=== PATIENT | female | born 1970 | race Caucasian/White ===

== ENCOUNTER 2021-04-02 07:16 | Outpatient (REF) | payer OTHER, SELFPAY ==
--- NOTE | ~2021-04-02 | MM_ITS ---
EXAMINATION: MM SCREENING DIGITAL BREAST TOMOSYNTHESIS, BILATERAL CLINICAL INFORMATION: Screening. Asymptomatic. The lifetime risk of breast cancer based on the Tyrer-Cuzick Model is 6%. COMPARISON: Mammography: 01/24/2020, 01/18/2019, 01/12/2018 TECHNIQUE: Digital mammography is performed in craniocaudal and mediolateral oblique views along with computer-aided detection (CAD). Digital breast tomosynthesis is performed in implant-displaced craniocaudal and implant-displaced mediolateral oblique views along with computer-aided detection (CAD). Synthesized 2D images are generated from the tomosynthesis. FINDINGS: There are scattered areas of fibroglandular density (ACR BI-RADS breast composition Category b). There are no significant masses, abnormal calcifications, or other abnormalities. Parenchymal pattern is similar to prior exams. No developing density. The implant contours are similar to prior studies. The axilla are unremarkable. No significant changes. MM/MM tomosynthesis screen imp BI IMPRESSION: No mammographic evidence of malignancy. ASSESSMENT: BI-RADS 1: Negative RECOMMENDATION: Routine annual mammography screening. This patient's information was entered into a reminder system with a target due date for their next mammogram.
== END 2021-04-02 07:17 | disposition home or self-care (01) ==
LOC: HO.MAMMO 07:16
PROVIDERS: PCP Internal Medicine; Visit Provider Internal Medicine
DX: Z12.31 Encounter for screening mammogram for malignant neoplasm of breast (principal)
CPT/HCPCS: 77063; 77067

== ENCOUNTER 2021-06-20 10:25 | Outpatient (REF) | payer OTHER, SELFPAY ==
[2021-06-20 13:32] LABS: MANUAL DIFF FLAG NO
[2021-06-20 13:36] LABS: Basophils Percent Auto 0.5 % (0-2); Eosinophils Absolute Auto 0.1 X10*3/uL (0.0-0.4); Eosinophils Percent Auto 1.7 % (0-4); Hematocrit 41.5 % (37-47); Hemoglobin 13.6 g/dl (12.0-16.0); Imm Gran Abs Auto 0.02 X10*3/uL (0.00-0.03); Imm Gran Pct Auto 0.3 % (0.0-0.4); Lymphocytes Percent Auto 34.4 % (20-40); Mean Corpuscular HGB Conc 32.8 g/dl (31.0-35.0); Mean Corpuscular Hemoglobin 30.2 pg (27.0-33.0); Mean Platelet Volume 9.7 fL (9.4-12.3); Monocytes Absolute Auto 0.5 X10*3/uL (0.1-1.2); Monocytes Percent Auto 8.3 % (2-11); Neutrophils Absolute Auto 3.2 X10*3/uL (2.0-8.3); Neutrophils Percent Auto 54.8 % (45-73); Platelet Count 266 X10*3/uL (160-400); Red Blood Count 4.51 X10*6/uL (4.20-5.50); Red Cell Distribution Width 11.9 % (11.0-16.0); White Blood Count 5.8 X10*3/uL (4.8-10.8)
[2021-06-20 13:58] LABS: Alanine Aminotransferase 28 U/L (0-31); Albumin Level 4.3 g/dL (3.5-5.0); Alkaline Phosphatase 70 U/L (39-117); Anion Gap 12 (12-20); Aspartate Amino Transferase 22 U/L (5-31); Bilirubin Total 0.6 mg/dL (0.0-1.0); Blood Urea Nitrogen 13 mg/dL (9-16); Calcium 9.3 mg/dL (8.4-10.2); Carbon Dioxide 27 mmol/L (22-29); Chloride 103 mmol/L (96-108); Cholesterol 256 mg/dL; Estimated Glomerular Filt Rate > 60; Glucose Fasting 100 mg/dL (60-99); HDL Cholesterol 73 mg/dL; LDL Cholesterol Calculated 149 mg/dl; Potassium 4.1 mmol/L (3.3-5.1); Sodium 138 mmol/L (135-145); Total Protein 7.2 g/dL (6.5-8.0); Triglycerides 170 mg/dL
[2021-06-20 14:20] LABS: Thyroid Stimulating Hormone 0.84 uIU/mL (0.32-4.0); Vitamin D 25-OH Total 38.6 ng/mL (>30)
== END 2021-06-20 10:26 | disposition home or self-care (01) ==
LOC: HO.MANLDS 10:25
PROVIDERS: PCP Internal Medicine; Visit Provider Internal Medicine
DX: Z00.00 Encounter for general adult medical examination without abnormal findings (principal)
CPT/HCPCS: 36415; 80053; 80061; 82306; 84443; 85025

== ENCOUNTER 2022-04-04 07:17 | Outpatient (REF) | payer OTHER, SELFPAY ==
--- NOTE | ~2022-04-04 | MM_ITS ---
EXAMINATION: MM SCREENING DIGITAL BREAST TOMOSYNTHESIS, BILATERAL CLINICAL INFORMATION: Screening. Asymptomatic. The lifetime risk of breast cancer based on the Tyrer-Cuzick Model is 6%. COMPARISON: Mammography: 04/02/2021, 01/24/2020, 01/18/2019 TECHNIQUE: Digital mammography is performed in craniocaudal and mediolateral oblique views along with computer-aided detection (CAD). Digital breast tomosynthesis is performed in implant-displaced craniocaudal and implant-displaced mediolateral oblique views along with computer-aided detection (CAD). Synthesized 2D images are generated from the tomosynthesis. FINDINGS: There are scattered areas of fibroglandular density (ACR BI-RADS breast composition Category b). There are no significant masses, abnormal calcifications, or other abnormalities. Parenchymal pattern is similar to prior exams and there is no architectural abnormality or developing density or significant changes. The implant contours are smooth. MM/MM tomosynthesis screen imp BI IMPRESSION: No mammographic evidence of malignancy. ASSESSMENT: BI-RADS 1: Negative RECOMMENDATION: Routine annual mammography screening. This patient's information was entered into a reminder system with a target due date for their next mammogram.
== END 2022-04-04 07:18 | disposition home or self-care (01) ==
LOC: HO.MAMMO 07:17
PROVIDERS: PCP Internal Medicine; Visit Provider Internal Medicine
DX: Z12.31 Encounter for screening mammogram for malignant neoplasm of breast (principal)
CPT/HCPCS: 77063; 77067

== ENCOUNTER 2023-04-07 07:17 | Outpatient (REF) | payer OTHER, SELFPAY ==
--- NOTE | ~2023-04-07 | MM_ITS ---
EXAMINATION: MM SCREENING DIGITAL BREAST TOMOSYNTHESIS, BILATERAL CLINICAL INFORMATION: Screening. Asymptomatic. The lifetime risk of breast cancer based on the Tyrer-Cuzick Model is 6%. COMPARISON: Mammography: 04/04/2022, 04/02/2021, 01/24/2020 TECHNIQUE: Digital mammography is performed in craniocaudal and mediolateral oblique views along with computer-aided detection (CAD). Digital breast tomosynthesis is performed in implant-displaced craniocaudal and implant-displaced mediolateral oblique views along with computer-aided detection (CAD). Synthesized 2D images are generated from the tomosynthesis. FINDINGS: There are scattered areas of fibroglandular density (ACR BI-RADS breast composition Category b). Implant contours are smooth and similar to prior studies. No architectural abnormality or developing density or significant change from prior studies. There are no significant masses, abnormal calcifications, or other abnormalities. The axilla and skin contours are unremarkable. MM/MM tomosynthesis screen imp BI IMPRESSION: No mammographic evidence of malignancy. ASSESSMENT: BI-RADS 1: Negative RECOMMENDATION: Routine annual mammography screening. This patient's information was entered into a reminder system with a target due date for their next mammogram.
== END 2023-04-07 07:18 | disposition home or self-care (01) ==
LOC: HO.MAMMO 07:17
PROVIDERS: PCP Internal Medicine; Visit Provider Internal Medicine
DX: Z12.31 Encounter for screening mammogram for malignant neoplasm of breast (principal)
CPT/HCPCS: 77063; 77067

== ENCOUNTER 2023-04-21 07:14 | Outpatient (REF) | payer OTHER, SELFPAY ==
[2023-04-21 07:33] LABS: MANUAL DIFF FLAG NO
[2023-04-21 08:11] LABS: Basophils Absolute Auto 0.1 X10*3/uL (0.0-0.2); Basophils Percent Auto 0.9 % (0-2); Eosinophils Absolute Auto 0.1 X10*3/uL (0.0-0.4); Eosinophils Percent Auto 2.6 % (0-4); Hematocrit 40.3 % (37.0-47.0); Hemoglobin 13.3 g/dl (12.0-16.0); Imm Gran Abs Auto 0.02 X10*3/uL (0.00-0.03); Imm Gran Pct Auto 0.4 % (0.0-0.4); Lymphocytes Percent Auto 37.5 % (20-40); Mean Corpuscular Hemoglobin 29.1 pg (27.0-33.0); Mean Corpuscular Volume 88.2 fL (80.0-98.0); Mean Platelet Volume 9.1 fL (9.4-12.3); Monocytes Absolute Auto 0.4 X10*3/uL (0.1-1.2); Monocytes Percent Auto 7.8 % (2-11); Neutrophils Absolute Auto 2.7 x10*3/uL (2.0-8.3); Neutrophils Percent Auto 50.8 % (45-73); Platelet Count 282 X10*3/uL (160-400); Red Blood Count 4.57 X10*6/uL (4.20-5.50); Red Cell Distribution Width 11.7 % (11.0-16.0); White Blood Count 5.4 X10*3/uL (4.8-10.8)
[2023-04-21 08:38] LABS: Alanine Aminotransferase 29 U/L (0-31); Alkaline Phosphatase 75 U/L (39-117); Anion Gap 12 (12-20); Aspartate Amino Transferase 20 U/L (5-31); Bilirubin Total 0.9 mg/dL (0.0-1.0); Blood Urea Nitrogen 17 mg/dL (9-16); Calcium 9.2 mg/dL (8.4-10.2); Carbon Dioxide 26 mmol/L (22-29); Chloride 108 mmol/L (96-108); Cholesterol 254 mg/dL; Estimated Glomerular Filt Rate > 60; Glucose Random 100 mg/dL (60-115); HDL Cholesterol 57 mg/dL; LDL Cholesterol Calculated 170 mg/dl; Potassium 4.3 mmol/L (3.3-5.1); Sodium 142 mmol/L (135-145); Total Protein 6.7 g/dL (6.5-8.0); Triglycerides 139 mg/dL
[2023-04-21 08:59] LABS: Thyroid Stimulating Hormone 1.29 uIU/mL (0.32-4.0); Vitamin B12 343 pg/mL (200-900); Vitamin D 25-OH Total 34.3 ng/mL (>30)
== END 2023-04-21 07:15 | disposition home or self-care (01) ==
LOC: HO.LAB 07:14
PROVIDERS: PCP Internal Medicine; Visit Provider Internal Medicine
DX: Z00.00 Encounter for general adult medical examination without abnormal findings (principal); E78.00 Pure hypercholesterolemia, unspecified; E03.9 Hypothyroidism, unspecified; Z13.21 Encounter for screening for nutritional disorder
CPT/HCPCS: 36415; 80053; 80061; 82306; 82607; 84443; 85025

== ENCOUNTER 2023-11-09 07:24 | Outpatient (REF) | payer OTHER, SELFPAY ==
[2023-11-09 07:50] LABS: MANUAL DIFF FLAG NO
[2023-11-09 08:50] LABS: Basophils Percent Auto 0.8 % (0-2); Eosinophils Absolute Auto 0.1 X10*3/uL (0.0-0.4); Eosinophils Percent Auto 2.2 % (0-4); Hematocrit 42.2 % (37.0-47.0); Hemoglobin 13.8 g/dl (12.0-16.0); Imm Gran Abs Auto 0.01 X10*3/uL (0.00-0.03); Imm Gran Pct Auto 0.2 % (0.0-0.4); Lymphocytes Absolute Auto 1.5 X10*3/uL (1.2-4.9); Lymphocytes Percent Auto 29.8 % (20-40); Mean Corpuscular HGB Conc 32.7 g/dl (31.0-35.0); Mean Corpuscular Hemoglobin 29.8 pg (27.0-33.0); Mean Corpuscular Volume 91.1 fL (80.0-98.0); Mean Platelet Volume 9.5 fL (9.4-12.3); Monocytes Absolute Auto 0.5 X10*3/uL (0.1-1.2); Monocytes Percent Auto 8.9 % (2-11); Neutrophils Percent Auto 58.1 % (45-73); Platelet Count 270 X10*3/uL (160-400); Red Blood Count 4.63 X10*6/uL (4.20-5.50); Red Cell Distribution Width 11.9 % (11.0-16.0); White Blood Count 5.1 X10*3/uL (4.8-10.8)
[2023-11-09 09:36] LABS: Alanine Aminotransferase 36 U/L (0-31); Albumin Level 4.1 g/dL (3.5-5.0); Alkaline Phosphatase 74 U/L (39-117); Anion Gap 11 (12-20); Aspartate Amino Transferase 26 U/L (5-31); Bilirubin Total 0.6 mg/dL (0.0-1.0); Blood Urea Nitrogen 13 mg/dL (9-16); Calcium 9.2 mg/dL (8.4-10.2); Carbon Dioxide 28 mmol/L (22-29); Chloride 108 mmol/L (96-108); Estimated Glomerular Filt Rate > 60; Glucose Random 95 mg/dL (60-115); Potassium 3.8 mmol/L (3.3-5.1); Sodium 143 mmol/L (135-145); Total Protein 6.9 g/dL (6.5-8.0)
[2023-11-09 10:05] LABS: Ferritin 159 ng/mL (10-250); Vitamin D 25-OH Total 37.6 ng/mL (>30)
== END 2023-11-09 07:25 | disposition home or self-care (01) ==
LOC: HO.LAB 07:24
PROVIDERS: PCP Internal Medicine; Visit Provider Internal Medicine
DX: K76.9 Liver disease, unspecified (principal); K90.0 Celiac disease
CPT/HCPCS: 36415; 80053; 82306; 82607; 82728; 85025

== ENCOUNTER 2024-04-18 07:13 | Outpatient (REF) | payer OTHER, SELFPAY ==
--- NOTE | ~2024-04-18 | MM_ITS ---
EXAMINATION: MM SCREENING DIGITAL BREAST TOMOSYNTHESIS, BILATERAL WITH BILATERAL BREAST IMPLANTS CLINICAL INFORMATION: Screening. Asymptomatic. COMPARISON: Mammography: This study is compared with prior examinations dating back to 2019. TECHNIQUE: Digital mammography is performed in craniocaudal and mediolateral oblique views along with computer-aided detection (CAD). Digital breast tomosynthesis is performed in implant-displaced craniocaudal and implant-displaced mediolateral oblique views along with computer-aided detection (CAD). Synthesized 2D images are generated from the tomosynthesis. FINDINGS: There are scattered areas of fibroglandular density (ACR BI-RADS breast composition Category b). There are bilateral, retropectoral, mammographically intact saline breast implants. There are no significant masses, abnormal calcifications, or other abnormalities. MM/MM tomosynthesis screen imp BI IMPRESSION: There are no significant changes from prior study. ASSESSMENT: BI-RADS BI-RADS 1 - Negative RECOMMENDATION: Routine annual mammography screening. 1 year F/U This patient's information was entered into a reminder system with a target due date for their next mammogram.
== END 2024-04-18 07:14 | disposition home or self-care (01) ==
LOC: HO.MAMMO 07:13
PROVIDERS: PCP Internal Medicine; Visit Provider Internal Medicine
DX: Z12.31 Encounter for screening mammogram for malignant neoplasm of breast (principal)
CPT/HCPCS: 77063; 77067

== ENCOUNTER → 2024-04-18 07:30 | Outpatient (BNV) | payer OTHER, SELFPAY | PROVIDERS: PCP Internal Medicine; Visit Provider Radiology Diagnostic Radiology | DX: Z12.31 Encounter for screening mammogram for malignant neoplasm of breast (principal) | CPT/HCPCS: 77063; 77067 ==

== ENCOUNTER 2024-06-17 15:18 | Outpatient (REF) | payer BC, SELFPAY ==
[2024-06-17 17:53] LABS: MANUAL DIFF FLAG NO
[2024-06-17 17:58] LABS: Basophils Percent Auto 0.5 % (0-2); Eosinophils Absolute Auto 0.1 X10*3/uL (0.0-0.4); Eosinophils Percent Auto 1.8 % (0-4); Hemoglobin 12.9 g/dl (12.0-16.0); Imm Gran Abs Auto 0.01 X10*3/uL (0.00-0.03); Imm Gran Pct Auto 0.3 % (0.0-0.4); Lymphocytes Absolute Auto 1.6 X10*3/uL (1.2-4.9); Lymphocytes Percent Auto 40.3 % (20-40); Mean Corpuscular HGB Conc 33.1 g/dl (31.0-35.0); Mean Corpuscular Hemoglobin 29.7 pg (27.0-33.0); Mean Corpuscular Volume 89.9 fL (80.0-98.0); Mean Platelet Volume 9.8 fL (9.4-12.3); Monocytes Absolute Auto 0.7 X10*3/uL (0.1-1.2); Monocytes Percent Auto 17.2 % (2-11); Neutrophils Absolute Auto 1.6 x10*3/uL (2.0-8.3); Neutrophils Percent Auto 39.9 % (45-73); Platelet Count 253 X10*3/uL (160-400); Red Blood Count 4.34 X10*6/uL (4.20-5.50); Red Cell Distribution Width 11.4 % (11.0-16.0)
[2024-06-17 18:15] LABS: Rheumatoid Factor < 13.0 IU/mL (<15.0)
[2024-06-17 18:20] LABS: Alanine Aminotransferase 35 U/L (0-31); Albumin Level 3.8 g/dL (3.5-5.0); Alkaline Phosphatase 84 U/L (39-117); Anion Gap 13 (12-20); Aspartate Amino Transferase 24 U/L (5-31); Bilirubin Total 0.4 mg/dL (0.0-1.0); Blood Urea Nitrogen 16 mg/dL (9-16); C Reactive Protein < 0.10 mg/dL (< or = 0.50); Calcium 9.2 mg/dL (8.4-10.2); Carbon Dioxide 26 mmol/L (22-29); Chloride 105 mmol/L (96-108); Estimated Glomerular Filt Rate > 60; Glucose Random 139 mg/dL (60-115); Iron 41 mcg/dL (30-160); Percent Iron Saturation 18 % (15-50); Phosphorus 3.8 mg/dL (2.7-4.5); Sodium 140 mmol/L (135-145); Total Iron Binding Capacity 227 mcg/dL (228-428); Total Protein 6.7 g/dL (6.5-8.0); Unsaturated Iron Binding 186 ug/dL
[2024-06-17 18:38] LABS: Erythrocyte Sedimentation Rate 6 MM/HR (0-20)
[2024-06-17 18:41] LABS: Ferritin 391 ng/mL (10-250); Free T4 (Free Thyroxine) 2.59 ng/dL (0.71-1.85); Vitamin D 25-OH Total 60.7 ng/mL (>30)
[2024-06-17 18:44] LABS: Folate 13.2 ng/mL (> or = 4.0); Vitamin B12 408 pg/mL (200-900)
[2024-06-17 19:13] LABS: Thyroid Stimulating Hormone < 0.01 uIU/mL (0.32-4.0)
[2024-06-18 05:21] LABS: Estimated Average Glucose 105 mg/dL; Hemoglobin A1c % 5.3 % (<6.0)
[2024-06-18 05:30] LABS: Parathyroid Hormone Intact 84.5 pg/mL (8.7-77.1)
[2024-06-19 12:53] LABS: Lyme Abs Screen <0.90 index
[2024-06-19 13:09] LABS: Triiodothyronine T3 Free >20.0 pg/mL (2.3-4.2)
[2024-06-22 07:59] LABS: Anti Nuclear Antibody Screen NEGATIVE (NEGATIVE)
[2024-06-25 02:43] LABS: A. Phagocytophilum Ab IgG <1:64 (<1:64); A. Phagocytophilum Ab IgM <1:20 (<1:20); E. Chaffeensis Ab IgG <1:64 (<1:64); E. Chaffeensis Ab IgM <1:20 (<1:20)
== END 2024-06-17 15:19 | disposition home or self-care (01) ==
LOC: HO.MANLDS 15:18
PROVIDERS: Visit Provider Physician Assistant
DX: R20.8 Other disturbances of skin sensation (principal); M79.10 Myalgia, unspecified site; R42 Dizziness and giddiness; Z13.1 Encounter for screening for diabetes mellitus
CPT/HCPCS: 36415; 80053; 82306; 82550; 82607; 82728; 82746; 83036; 83540; 83735; 83970; 84100; 84439; 84443; 84481; 85025; 85652; 86038; 86140; 86431; 86617; 86618; 86666

== ENCOUNTER 2024-06-19 22:31 | Emergency (ER) | payer BC, SELFPAY ==
--- NOTE | 2024-06-19 | ECG_ITS ---
Test Reason : palpatation Blood Pressure : / mmHG Vent. Rate : 084 BPM Atrial Rate : 084 BPM P-R Int : 150 ms QRS Dur : 074 ms QT Int : 360 ms P-R-T Axes : 020 036 033 degrees QTc Int : 425 ms Normal sinus rhythm Normal ECG When compared with ECG of 14-DEC-2009 14:01, No significant change was found Referred By: Generic ED Physician Electronically Signed By:Remy Flores
--- NOTE | ~2024-06-19 | CT_ITS ---
EXAMINATION: CT ANGIOGRAM OF THE CHEST WITH AND WITHOUT CONTRAST (CT PULMONARY ANGIOGRAM FOR PE) CLINICAL INFORMATION: Reason for Exam chest pain COMPARISON: None available. TECHNIQUE: Prior to contrast administration, noncontrast localization images were obtained. Subsequently, multidetector volumetric imaging was performed from the thoracic inlet to below the diaphragms following the administration of 65 mL Omnipaque 350 intravenous contrast. No contrast reaction reported Sagittal, coronal, and MIP oblique sagittal reformatted images were obtained on the CT workstation, uploaded to PACS, and reviewed. This CT examination was performed using dose optimization techniques as appropriate, variously including the following: *Automated exposure control *Adjustment of mA and/or kV according to patient size (this includes techniques or standardized protocols for targeted exams where dose is matched to indication/reason for exam; i.e. extremities or head) *Use of iterative reconstruction technique Total exam dose-length product 238 mGy-cm FINDINGS: QUALITY OF STUDY/CONTRAST BOLUS: Satisfactory. PULMONARY ARTERIES: No filling defects are seen in the main, lobar, or segmental pulmonary arteries to suggest the presence of pulmonary emboli. THORACIC AORTA: No aneurysm or dissection. LUNG: Mild dependent bibasilar atelectasis. A 4 mm left upper lobe nodule is present on image 188/420. There is a 3 mm right middle lobe nodule on image 239. PLEURA: No pleural effusion or pneumothorax. MEDIASTINUM: Visualized thyroid gland is unremarkable. There are subcentimeter mediastinal lymph nodes within the range of normal variation. Cardiac size appears at the upper limits of normal. No pericardial effusion. No evidence of septal bowing or right heart strain. CORONARY ARTERY CALCIFICATION: None visualized on this study. CHEST WALL/AXILLA: Bilateral breast implants are present. OSSEOUS STRUCTURES: No acute or suspicious osseous abnormality. UPPER ABDOMEN: Mild heterogeneous hypoattenuation within the right hepatic lobe suggesting nonuniform fatty infiltration, though not fully characterized on this exam. CT/CT angio chest PE protocol IMPRESSION: 1. No pulmonary embolus identified. 2. Left upper lobe 4 mm lung nodule and right middle lobe 3 mm nodule. See follow-up recommendations below. 3. Heterogeneous hypoattenuation within the right hepatic lobe, not fully assessed on this examination. This could represent heterogeneous fatty infiltration, though further evaluation with nonemergent dynamic liver MRI is recommended. According to the UPDATED 2017 Fleischner Society recommendations, the advised follow-up imaging for solid nodules < 6 mm is: LOW RISK PATIENT: No routine follow-up. HIGH RISK PATIENT: Optional CT at 12 months. VTE: negative.
[2024-06-19 22:33] VITALS: BP 131/79; PULSE 86; RESP 18; TEMP 36.4; O2SAT 96; BMI 24.6
[2024-06-19 23:05] LABS: Basophils Percent Auto 0.4 % (0-2); Eosinophils Absolute Auto 0.1 X10*3/uL (0.0-0.4); Eosinophils Percent Auto 1.8 % (0-4); Hematocrit 35.9 % (37.0-47.0); Imm Gran Abs Auto 0.01 X10*3/uL (0.00-0.03); Imm Gran Pct Auto 0.2 % (0.0-0.4); Lymphocytes Percent Auto 41.6 % (20-40); MANUAL DIFF FLAG NO; Mean Corpuscular HGB Conc 33.4 g/dl (31.0-35.0); Mean Corpuscular Hemoglobin 29.5 pg (27.0-33.0); Mean Corpuscular Volume 88.2 fL (80.0-98.0); Mean Platelet Volume 9.1 fL (9.4-12.3); Monocytes Absolute Auto 0.8 X10*3/uL (0.1-1.2); Monocytes Percent Auto 15.8 % (2-11); Neutrophils Percent Auto 40.2 % (45-73); Platelet Count 226 X10*3/uL (160-400); Red Blood Count 4.07 X10*6/uL (4.20-5.50); Red Cell Distribution Width 11.4 % (11.0-16.0); White Blood Count 4.9 X10*3/uL (4.8-10.8)
[2024-06-19 23:19] LABS: Alanine Aminotransferase 34 U/L (0-31); Albumin Level 3.7 g/dL (3.5-5.0); Alkaline Phosphatase 91 U/L (39-117); Anion Gap 12 (12-20); Aspartate Amino Transferase 21 U/L (5-31); Bilirubin Total 0.3 mg/dL (0.0-1.0); Blood Urea Nitrogen 22 mg/dL (9-16); Calcium 9.2 mg/dL (8.4-10.2); Carbon Dioxide 27 mmol/L (22-29); Chloride 108 mmol/L (96-108); Creatinine Clr Calc Pharmacy 93.5; Estimated Glomerular Filt Rate > 60; Glucose Random 119 mg/dL (60-115); Potassium 3.8 mmol/L (3.3-5.1); Sodium 143 mmol/L (135-145); Total Protein 6.3 g/dL (6.5-8.0)
[2024-06-19 23:27] LABS: Troponin-I High Sensitivity < 2.7 ng/L (<3.5-17.0)
[2024-06-19 23:49] LABS: Magnesium 1.9 mg/dL (1.6-2.6)
--- NOTE | 2024-06-19 23:59 | ED.GENADULT ---
HPI - General Adult General Chief complaint: General Medical Stated complaint: hypothyroidism/heart beating fast Time Seen by Provider: 06/19/24 23:26 Source: patient, RN notes reviewed and old records reviewed Mode of arrival: ambulatory Limitations: no limitations History of Present Illness ED Provider: Rudi RAMOS narrative: 54-year-old female presents for evaluation of palpitations. Patient reports that she has had ongoing symptoms for a few months have been getting progressively worse. She went to her doctor on 06/17/2024. She had blood work that was indicative of a diagnosis of hyperthyroidism. She was prescribed propranolol for tremors and tachycardia. She is due for an ultrasound of her thyroid on Sunday She is not on methimazole The patient states that she has never had a diagnosis of hyperthyroidism in the past She reports intolerance of heat, palpitations, tremors and increased anxiety as well as perspiration Patient states that her symptoms were worse prior to arrival prompting the ER visit today. She took her propranolol today for the 1st time and her tremors have resolved but she is still experiencing hot flashes Related Data Previous Rx's ?Medication ?Instructions ?Recorded methimazole 5 mg tablet 5 mg PO DAILY #30 tabs 06/20/24 Allergies Allergy/AdvReac Type Severity Reaction Status Date / Time wheat [WHEAT] AdvReac Intermediate GI UPSET Verified 06/19/24 22:39 Review of Systems Constitutional: Constitutional: Denies body ache(s), Denies chills, Reports excessive sweating and Denies fever(s) Eyes: Eyes: Denies blurry vision Cardiovascular: Cardiovascular: Reports chest pain, Reports rapid heart rate, Reports palpitations and Reports dyspnea Respiratory: Respiratory: Reports dyspnea Gastrointestinal: Gastrointestinal: Denies abdominal pain, Denies nausea and Denies vomiting Musculoskeletal: Musculoskeletal: Denies back pain Integumentary/Breasts: Skin/Breast: Denies rash Psychiatric: Psychiatric: Reports anxiety Endocrine: Endocrine: Reports excessive sweating, Reports flushing, Reports heat intolerance and Reports palpitations PMFSH Social History Social History Advance Directives: No Advance Directives Information Provided: Yes Do you have a plan to hurt others: No Plan Physical Exam ED Vital Signs: Vital Signs - 24 hr 06/19/24 22:33 06/20/24 00:00 Temperature 97.6 F 97.7 F Pulse Rate 86 77 Respiratory Rate 18 18 Blood Pressure 131/79 122/66 Pulse Oximetry 96 99 Oxygen Delivery Method Room Air Room Air BMI result Body Mass Index 24.6 Const General: healthy appearing, comfortable, no acute distress, alert and awake Nutritional Appearance: well nourished Orientation/consciousness: patient oriented x3 HENMT Head: Yes normocephalic and Yes atraumatic Eyes Eyelids: Yes eyelids normal Conjunctivae: conjunctivae normal Sclerae: sclerae normal Corneas: corneas normal Pupils: Equal, round and reactive pupils present EOM: EOMs intact bilaterally Neck Other: No palpable goiter Neck: Yes full ROM Resp Effort & Inspection: normal respiratory effort, able to speak in complete sentences, no audible wheezes and not labored Auscultation: clear to auscultation bilaterally Cardio Rate: regular rate Rhythm: regular rhythm GI Inspection: No distended Palpation (GI): Soft to palpation, not firm, nontender, no guarding and not rigid Skin General skin exam: elasticity normal Neuro General: patient oriented x3 Cranial nerves: Yes Equal, round and reactive pupils present and Yes Bilaterally intact EOM present Cognition (Neuro): normal cognition Extrem Other: Moving all extremities well without any obvious deformities Medical Decision Making Medical Decision Making [facility] Narrative: 54-year-old female presents for evaluation of palpitations, shortness of breath. She does endorse leg swelling over the last week. She has a recent diagnosis of hyperthyroidism and all her symptoms may be related to hyperthyroidism, however given the shortness of breath, tachycardia and leg swelling I added a D-dimer to evaluate for DVT/PE. I was able to review the patient's labs from a few days ago. Plan to repeat TSH and reflex T4. Patient's EKG is nonischemic with heart rate 84 beats minute. Differential Diagnosis Differential Diagnoses: The differential diagnosis associated with the presentation includes Hyperthyroidism Thyroid storm less likely Anxiety Palpitations PE Lab Data [facility] Lab Attestation statement: I reviewed the patient's lab results. No leukocytosis. The patient has no significant anemia. No significant left shift. D-dimer is elevated to 317, electrolytes are without abnormality. BUN is slightly elevated to 22. Renal function within normal limits, creatinine 0.6 year and a GFR greater than 60. Random glucose of 119 patient TSH is less than 0.01 06/19/24 22:58 06/19/24 22:58 Labs: Lab Results 06/19/24 06/20/24 Range/Units 22:58 00:01 WBC 4.9 (4.8-10.8) X10*3/uL RBC 4.07 L (4.20-5.50) X10*6/uL Hgb 12.0 (12.0-16.0) g/dl Hct 35.9 L (37.0-47.0) % MCV 88.2 (80.0-98.0) fL MCH 29.5 (27.0-33.0) pg MCHC 33.4 (31.0-35.0) g/dl RDW 11.4 (11.0-16.0) % Plt Count 226 (160-400) X10*3/uL MPV 9.1 L (9.4-12.3) fL Immature Gran % (Auto) 0.2 (0.0-0.4) % Neut % (Auto) 40.2 L (45-73) % Lymph % (Auto) 41.6 H (20-40) % Clinton % (Auto) 15.8 H (2-11) % Eos % (Auto) 1.8 (0-4) % Baso % (Auto) 0.4 (0-2) % Lymph # (Auto) 2.0 (1.2-4.9) X10*3/uL [place] # (Auto) 0.8 (0.1-1.2) X10*3/uL Eos # (Auto) 0.1 (0.0-0.4) X10*3/uL Baso # (Auto) 0.0 (0.0-0.2) X10*3/uL Abs Immat Gran (auto) 0.01 (0.00-0.03) X10*3/uL Absolute Neuts (auto) 2.0 (2.0-8.3) x10*3/uL Absolute Nucleated RBC 0.000 (0.0-0.012) X10*3/uL Nucleated RBC % (auto) 0.0 (0.0-0.2) /100WBC D-Dimer High Sensitivty 317 NG/ML Sodium 143 (135-145) mmol/L Potassium 3.8 (3.3-5.1) mmol/L Chloride 108 (96-108) mmol/L Carbon Dioxide 27 (22-29) mmol/L Anion Gap 12 (12-20) BUN 22 H (9-16) mg/dL Creatinine 0.60 (0.5-1.4) mg/dL Estim Creat Clear Calc 93.5 Estimated GFR > 60 Random Glucose 119 H (60-115) mg/dL Calcium 9.2 (8.4-10.2) mg/dL Magnesium 1.9 (1.6-2.6) mg/dL Total Bilirubin 0.3 (0.0-1.0) mg/dL AST 21 (5-31) U/L ALT 34 H (0-31) U/L Alkaline Phosphatase 91 (39-117) U/L Troponin I High Sens < 2.7 (<3.5-17.0) ng/L Total Protein 6.3 L (6.5-8.0) g/dL Albumin 3.7 (3.5-5.0) g/dL TSH < 0.01 L (0.32-4.0) uIU/mL Free T4 3.23 H (0.71-1.85) ng/dL Independent Interpretation I performed an independent interpretation of an: EKG (Normal sinus rhythm with a rate of [address] segment elevations or depressions, no ectopy) Discharge Plan Discharge Clinical Impression: Hyperthyroidism Patient Disposition: Still a Patient Instructions: Hyperthyroidism (ED) Additional Instructions: You may continue your propranolol. Taking methimazole 5 mg daily. Follow-up with your primary doctor in your ultrasound on Sunday as planned. You may follow-up with endocrinology if you wish Prescriptions: New methimazole 5 mg tablet 5 mg PO DAILY Qty: 30 0RF Print Language: Setswana
[2024-06-20] VITALS: BP 122/66; PULSE 77; RESP 18; TEMP 36.5; O2SAT 99
--- NOTE | 2024-06-20 00:11 | MHC.EDTECH ---
Patient brought in from waiting room,labs drawn and sent to lab,rounds and vitals completed call askew in reach
[2024-06-20 00:12] LABS: TSH reflex Free T4 < 0.01 uIU/mL (0.32-4.0)
[2024-06-20 00:17] LABS: D Dimer High Sensitivity 317 NG/ML
[2024-06-20 00:45] LABS: Free T4 (Free Thyroxine) 3.23 ng/dL (0.71-1.85)
[2024-06-20 02:00] VITALS: BP 131/67; PULSE 78; RESP 16; TEMP 36.8; O2SAT 100
--- NOTE | 2024-06-20 02:30 | MHC.EDTECH ---
Hourly rounds and vitals completed,patient is waiting to go for CT-Scan,call askew in reach
[2024-06-20] MEDS: iohexoL 350 MG/ML 100 ML INFUS..BTL 65 ML IV (02:53)
[2024-06-20 04:18] VITALS: BP 135/72; PULSE 82; RESP 18; TEMP 36.7; O2SAT 98
--- NOTE | 2024-06-20 04:18 | MHC.EDTECH ---
Rounds and vitals completed,patient is waiting for discharge at this time.
[2024-06-20 04:23] VITALS: BP 135/72; PULSE 82; RESP 18; TEMP 36.7; O2SAT 98
== END 2024-06-20 04:24 | disposition home or self-care (01) ==
PROVIDERS: Physician Assistant; Emergency Provider Emergency Medicine; PCP Internal Medicine
DX: E05.90 Thyrotoxicosis, unspecified without thyrotoxic crisis or storm (principal); R00.2 Palpitations; R06.02 Shortness of breath; Z79.899 Other long term (current) drug therapy
CPT/HCPCS: 36415; 71275; 80053; 83735; 84439; 84443; 84484; 85025; 85379; 93005; 99284; Q9967

== ENCOUNTER → 2024-06-19 22:48 | Outpatient (BNV) | payer BC, SELFPAY | PROVIDERS: Emergency Provider Emergency Medicine; PCP Internal Medicine; Visit Provider Internal Medicine Cardiovascular Disease | DX: R00.2 Palpitations (principal) | CPT/HCPCS: 93010 ==

== ENCOUNTER 2024-06-23 10:24 | Outpatient (REF) | payer BC, SELFPAY ==
--- NOTE | ~2024-06-23 | US_ITS ---
EXAMINATION: US THYROID CLINICAL INFORMATION: Hyperthyroidism, thyrotoxicosis. COMPARISON: None available. TECHNIQUE: Linear transducer grayscale and color Doppler examination with attention to the region of the thyroid. FINDINGS: SIZE: Measurements of the thyroid lobes and nodules are given in sagittal, anteroposterior and transverse dimensions respectively. Right Thyroid Lobe: 4.7 x 1.5 x 2.1 cm, volume 7.7 mL. Parenchyma: The gland echotexture is heterogeneous. Thyroid vascularity is increased. Left Thyroid Lobe: 4.4 x 1.5 x 1.8 cm, volume 6.2 mL. Parenchyma: The gland echotexture is heterogeneous. Thyroid vascularity is increased. Isthmus: 0.3 cm in maximum AP dimension. No focal thyroid nodule is seen. NODES: No lymphadenopathy is seen in the tissue surrounding the thyroid gland. US/US thyroid IMPRESSION: Heterogeneous hypervascular thyroid which can be seen in the setting of acute thyroiditis. ACR TI-RADS RECOMMENDATION REFERENCE: Ultrasound-guided fine-needle aspiration, followup ultrasound, no further follow up. * TR1 (0 point) and TR2 (2 points): No FNA or follow up. * TR3 (3 points): FNA if more than or equal to 2.5 cm in maximum dimension, followup ultrasound in 1, 3 and 5 years if 1.5 to 2.4 cm in maximum dimension. * TR4 (4-6 points): FNA if more than or equal to 1.5 cm in maximum dimension, followup ultrasound in 1, 2, 3 and 5 years if 1 to 1.4 cm in maximum dimension. * TR5 (more than or equal to 7 points): FNA if more than or equal to 1 cm in maximum dimension, followup ultrasound every year for 5 years if 0.5 to 0.9 cm in maximum dimension. * TR3, TR4 or TR5 nodules that are below the size threshold for followup receive no follow up.
== END 2024-06-23 10:25 | disposition home or self-care (01) ==
LOC: HO.US 10:24
PROVIDERS: PCP Internal Medicine; Visit Provider Physician Assistant
DX: E05.90 Thyrotoxicosis, unspecified without thyrotoxic crisis or storm (principal)
CPT/HCPCS: 76536

== ENCOUNTER 2024-06-27 06:01 | Outpatient (REF) | payer BC, SELFPAY ==
[2024-06-27 07:57] LABS: TSH reflex Free T4 < 0.01 uIU/mL (0.32-4.0)
[2024-06-28 08:18] LABS: Triiodothyronine T3 Free 14.2 pg/mL (2.3-4.2)
[2024-06-28 10:19] LABS: Thyroid Peroxidase Antibodies 3 IU/mL (<9)
== END 2024-06-27 06:02 | disposition home or self-care (01) ==
LOC: HO.LAB 06:01
PROVIDERS: PCP Internal Medicine; Visit Provider Physician Assistant
DX: E05.80 Other thyrotoxicosis without thyrotoxic crisis or storm (principal)
CPT/HCPCS: 36415; 84439; 84443; 84481; 86376

== ENCOUNTER 2024-07-01 13:24 | Outpatient (AMB) | payer BC, SELFPAY ==
--- NOTE | 2024-07-01 14:09 | A.OFFVIS_ITS ---
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 In January/February 2024: started experienceing worsening hot flashes, increased sweating, voice was hoarse with sore throat Started noticing tremors in summer 2023, started having palpitations following that Decreased endurance Was diagnosed with hyperthyrodism June 192023 TSH <0.01 free t4 3.23 Symptoms were sent to the extent that she had to go to the ED and Started methimazole 5 mg daily june 19, 2024 Feels much improved but still feels tremors, palpitations, still having disturbed sleep. Diaphoresis has improved Postmenopausal No skin or hair chnages Lost 15 lbs in the last 2 months No new vision chnages but has early signs of macular degeneration Loose stools have improved Soreness in throat improved Taking propranolol 60 XR as needed Past medical Celiac Family history Mother: hypothyroidism Father: HTN Paternal grandmother: Stroke social history No smoking No drug use Alcohol use once or twice a week [facility] Medical History (Updated 07/01/24 @ 15:49 by Laverne Gordillo MD) Hyperthyroidism Surgical History (Updated 07/01/24 @ 14:14 by MILADIS Dalton) History of breast implant No pertinent past surgical history Social History (Updated 07/01/24 @ 14:12 by RAJI Dalton Alcohol intake: current Alcohol intake frequency: does not drink Patient Tobacco Use Status: Never used Tobacco Review of Systems Const Details: Constitutional: as above HEENT: no changes in vision Cardiac:does have palpitations. Pulmonary: No SOB GI:No abdominal pain, no nausea or vomiting, no anorexia, no blood in stool : no burning micturition, dysuria or increase in urinary frequency Neurologic: No dizziness, no weakness in extremities MSK: no back pain or joint stiffness Physical Exam Vital Signs: Last Vital Signs Pulse 97 07/01/24 14:11 BP 120/72 07/01/24 14:11 BMI result Body Mass Index 24.2 Const Other: General: sitting comfortably in bed in no acute distress HEENT: normocephalic/atraumatic, EOM intact, moist oral mucosa Neck: supple, symmetrical, no thyromegaly , no dorsocervical or supraclavicular fat pads Cardiac: normal heart sounds Pulm: normal breath sounds B/L, no added breath sounds Abd: not distended, no tenderness Extremities: Tremor is noted in upper extremities Neuro: AAO x3, Speech: normal, no facial droop, moving all 4 extremities Skin: no rash Results Reviewed Results Reviewed: Laboratory Tests 06/19/24 06/27/24 22:58 06:15 TSH < 0.01 L < 0.01 L Free T4 3.23 H 2.00 H Free T3 14.2 H [place] [id number] Ultrasound Report Signed Patient: Shereen Parsons MR#: [id number] : 1970 Acct:[id number] Age/Sex: 54 / F ADM Date: 06/23/24 Loc: HO.US Ordering Physician: Jihan Guillen Date of Service: 06/23/24 Procedure(s): US thyroid Accession Number(s): [id number] cc: Tomas Mccain MD; Jihan Guillen~ EXAMINATION: US THYROID CLINICAL INFORMATION: Hyperthyroidism, thyrotoxicosis. COMPARISON: None available. TECHNIQUE: Linear transducer grayscale and color Doppler examination with attention to the region of the thyroid. FINDINGS: SIZE: Measurements of the thyroid lobes and nodules are given in sagittal, anteroposterior and transverse dimensions respectively. Right Thyroid Lobe: 4.7 x 1.5 x 2.1 cm, volume 7.7 mL. Parenchyma: The gland echotexture is heterogeneous. Thyroid vascularity is increased. Left Thyroid Lobe: 4.4 x 1.5 x 1.8 cm, volume 6.2 mL. Parenchyma: The gland echotexture is heterogeneous. Thyroid vascularity is increased. Isthmus: 0.3 cm in maximum AP dimension. No focal thyroid nodule is seen. NODES: No lymphadenopathy is seen in the tissue surrounding the thyroid gland. Assessment & Plan Assessment & Plan (1) Hyperthyroidism: Comment: Patient with new onset of hyperthyroidism since spring Started methimazole 5 mg daily since 06/19/2024 Also taking propranolol 60 mg as needed Most recent labs on 06/27/2024 showed improvement in free T4 from 3.23 to 2.2 TSH remains suppressed Discussed with patient most likely etiology of hyperthyroidism is Graves disease which is an autoimmune condition. Other possible etiologies include thyroiditis though unlikely given that patient did not have any preceding symptoms of viral infection. Plus time 9 also more consistent with Graves disease. Other possible etiology could be toxic nodular goiter. Patient had thyroid ultrasound done in June as well which showed no nodules. At this time we will increase her methimazole to 10 mg daily. We will have her repeat thyroid function tests in 3-4 weeks from dose change. We will check TSI antibodies. If these are positive I would confirm Graves disease. Discussed with patient that about 30% of the patients have remission after 12-18 months of treatment with methimazole. More recent data has shown longer periods of treatment resulting in [place] remission rates as well. At this time we will plan to continue treatment with methimazole and continue adjusting the dose as needed. In the long run if she does not have remission, we also briefly discussed definitive therapy options of radioactive iodine ablation and total thyroidectomy and the need for requiring long-term levothyroxine therapy after those procedures. All questions were answered. Patient verbalized understanding and agreed with the plan. The following were discussed as potential side effects of methimazole: ? Serious skin rashes ? nausea, vomiting, or severe hepatic injury ? Agranulocytosis: a rare side effect of methimazole involves a severe decrease in the production of white blood cells. This condition is extremely serious, but affects only one out of every 200 to 500 people who take an antithyroid drug. Agranulocytosis more commonly occurs within the first three months of starting treatment with an antithyroid drug, but can occur at any time. If patient develops a fever (temperature above 100.5F), or other signs or symptoms of infection, she should stop taking the tapazole and immediately have a complete blood count (CBC) done. Serious and potentially life threatening infections, or even , can occur before agranulocytosis resolves. However, once the antith yroid drug is stopped, agranulocytosis usually resolves within a week. ? Arthralgias, myalgias ? Renal: Nephritis ? Fever Patient will stop medication and call our office if these occur. Code(s): - Thyrotoxicosis, unspecified without thyrotoxic crisis or storm Category: Medical Plan: See below Plan Increase methimazole to 10 mg daily -repeat labs in 3-4 weeks with TSH, free T4, total T3, TSI antibodies -follow up in 5 weeks Orders: Orders Free T4 (Free Thyroxine) 3 Weeks E0 - Thyrotoxicosis, unspecified without thyrotoxic crisis or storm Complete Blood Count Auto Diff 3 Weeks E0 - Thyrotoxicosis, unspecified without thyrotoxic crisis or storm Thyroid Stimulating Immunoglob 3 Weeks E0. - Thyrotoxicosis, unspecified without thyrotoxic crisis or storm TSH reflex Free T4 3 Weeks E0. - Thyrotoxicosis, unspecified without thyrotoxic crisis or storm Triiodothyronine T3 Total 3 Weeks E0. - Thyrotoxicosis, unspecified without thyrotoxic crisis or storm Medications: Changed From methimazole 5 mg PO DAILY 30 tabs 0RF To methimazole 10 mg (2 x 5 mg) PO DAILY 120 tabs 2RF hyperthyroidism Patient Instructions: Increase methimazole to 10 mg daily (2 tablets of 5 mg ) If you have fever, rash ,flu like symtoms or sore throat stop methimazole and call our office Do blood work in 3 -4 weeks , no need for fasting Follow up in 4-6 weeks Coding Level of Care Code New Pt Level 4 (43874) Diagnoses Hyperthyroidism E0
[2024-07-01 14:11] VITALS: BP 120/72; PULSE 97; BMI 24.2
== END 2024-07-01 14:56 | disposition home or self-care (01) ==
PROVIDERS: PCP Internal Medicine; Visit Provider Student in an Organized Health Care Education/Training Program
DX: E05.90 Thyrotoxicosis, unspecified without thyrotoxic crisis or storm (principal)
CPT/HCPCS: 99204

== ENCOUNTER → 2024-07-01 13:24 | Outpatient (BNVA) | payer BC, SELFPAY | PROVIDERS: PCP Internal Medicine; Visit Provider Student in an Organized Health Care Education/Training Program ==

== ENCOUNTER 2024-07-28 09:01 | Outpatient (REF) | payer BC, SELFPAY ==
[2024-07-28 11:11] LABS: MANUAL DIFF FLAG NO
[2024-07-28 11:48] LABS: Basophils Percent Auto 0.7 % (0-2); Eosinophils Absolute Auto 0.1 X10*3/uL (0.0-0.4); Eosinophils Percent Auto 2.1 % (0-4); Hematocrit 39.9 % (37.0-47.0); Hemoglobin 13.1 g/dl (12.0-16.0); Imm Gran Abs Auto 0.01 X10*3/uL (0.00-0.03); Imm Gran Pct Auto 0.2 % (0.0-0.4); Lymphocytes Absolute Auto 1.5 X10*3/uL (1.2-4.9); Lymphocytes Percent Auto 34.4 % (20-40); Mean Corpuscular HGB Conc 32.8 g/dl (31.0-35.0); Mean Corpuscular Hemoglobin 28.6 pg (27.0-33.0); Mean Corpuscular Volume 87.1 fL (80.0-98.0); Mean Platelet Volume 9.7 fL (9.4-12.3); Monocytes Absolute Auto 0.5 X10*3/uL (0.1-1.2); Monocytes Percent Auto 11.1 % (2-11); Neutrophils Absolute Auto 2.2 x10*3/uL (2.0-8.3); Neutrophils Percent Auto 51.5 % (45-73); Platelet Count 240 X10*3/uL (160-400); Red Blood Count 4.58 X10*6/uL (4.20-5.50); Red Cell Distribution Width 11.5 % (11.0-16.0); White Blood Count 4.2 X10*3/uL (4.8-10.8)
[2024-07-28 12:48] LABS: Free T4 (Free Thyroxine) 1.67 ng/dL (0.71-1.85); TSH reflex Free T4 < 0.01 uIU/mL (0.32-4.0)
[2024-07-29 09:27] LABS: Triiodothyronine T3 Total 303 ng/dL (76-181)
[2024-08-01 14:17] LABS: Thyroid Stimulating Immunoglob 280 % baseline (<140)
== END 2024-07-28 09:02 | disposition home or self-care (01) ==
LOC: HO.WFDLDS 09:01
PROVIDERS: Visit Provider Student in an Organized Health Care Education/Training Program
DX: E05.90 Thyrotoxicosis, unspecified without thyrotoxic crisis or storm (principal)
CPT/HCPCS: 36415; 84439; 84443; 84445; 84480; 85025

== ENCOUNTER 2024-08-05 07:31 | Outpatient (AMB) | payer BC, SELFPAY ==
[2024-08-05 07:47] VITALS: BP 122/62; PULSE 88; BMI 23.5
--- NOTE | 2024-08-05 07:47 | A.OFFVIS_ITS ---
Vital Signs 08/05/24 07:47 Height 5 ft 3 in Weight 132 lb 7.965 oz BMI 23.5 BP 122/62 Blood Pressure Location Lt brachial Position Sitting Pulse 88 Pulse Source Pulse Oximeter Intake Visit Reasons: Hyperthyroidism Intake Note: Patient present today for thyroid cancer office visit. 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 HPI from prior visit In February 2024: started experienceing worsening hot flashes, increased sweating, voice was hoarse with sore throat Started noticing tremors in summer 2023, started having palpitations following that Decreased endurance Was diagnosed with hyperthyrodism June 192023 TSH <0.01 free t4 3.23 Symptoms were sent to the extent that she had to go to the ED and Started methimazole 5 mg daily june 19, 2024 Last saw me 07/01/24 Methimazole increased to 10 mg daily on that visit 06/27/24 07/28/24 06:15 09:02 TSH < 0.01 L < 0.01 L Free T4 2.00 H 1.67 Free T3 14.2 H Total T3 303 H Thyroid Stim Immunoglob 280 H Thyroid Peroxidase Ab 3 Labs most recent from 07/28/24 showed TSH remaines suppressed but free t4 has normalized, TSI elevated at 280 confirmuing Graves disease Still having tremors and palpitations. feels thye are somewhat better. Sleeping is much better. Diaphoresis improved. Regular bowel movements. Postmenopausal No skin or hair chnages Lost 15 lbs in the inital 2 months of diagnosis, and lost another 4 lbs since she has seen me since June 2024 No new vision chnages but has early signs of macular degeneration Soreness in throat almost resolved Taking propranolol 60 XR as needed Past medical Celiac Family history Mother: hypothyroidism Father: HTN Paternal grandmother: Stroke social history No smoking No drug use Alcohol use once or twice a week Review of systems Constitutional: no fevers, chills HEENT: no changes in vision Cardiac: Has palpitations. Pulmonary: No SOB GI:No abdominal pain, no nausea or vomiting, no anorexia, no blood in stool : no burning micturition, dysuria or increase in urinary frequency Physical exam General: sitting comfortably in no acute distress HEENT: normocephalic/atraumatic, moist oral mucosa Neck: supple, symmetrical, no thyromegaly , no dorsocervical or supraclavicular fat pads Cardiac: normal heart sounds Pulm: normal breath sounds B/L, no added breath sounds Abd: not distended, no tenderness Extremities: no edema, no signs of myxedema, fine tremors noted Neuro: AAO x3, Speech: normal, no facial droop, moving all 4 extremities [facility] Medical History (Updated 08/05/24 @ 07:54 by Laverne Gordillo MD) Graves disease Hyperthyroidism Surgical History (Updated 07/01/24 @ 14:14 by MILADIS Dalton) History of breast implant No pertinent past surgical history Social History (Updated 07/01/24 @ 14:12 by MILADIS Dalton) Alcohol intake: current Alcohol intake frequency: does not drink Patient Tobacco Use Status: Never used Tobacco Results Reviewed Results Reviewed: Laboratory Tests Laboratory Tests 06/20/21 04/21/23 06/17/24 10:28 07:31 15:21 TSH 0.84 1.29 < 0.01 L Free T4 2.59 H Free T3 >20.0 H Total T3 Thyroid Stim Immunoglob Thyroid Peroxidase Ab 06/19/24 06/27/24 07/28/24 22:58 06:15 09:02 TSH < 0.01 L < 0.01 L < 0.01 L Free T4 3.23 H 2.00 H 1.67 Free T3 14.2 H Total T3 303 H Thyroid Stim Immunoglob 280 H Thyroid Peroxidase Ab 3 EXAMINATION: US THYROID 06/23/24 CLINICAL INFORMATION: Hyperthyroidism, thyrotoxicosis. COMPARISON: None available. TECHNIQUE: Linear transducer grayscale and color Doppler examination with attention to the region of the thyroid. FINDINGS: SIZE: Measurements of the thyroid lobes and nodules are given in sagittal, anteroposterior and transverse dimensions respectively. Right Thyroid Lobe: 4.7 x 1.5 x 2.1 cm, volume 7.7 mL. Parenchyma: The gland echotexture is heterogeneous. Thyroid vascularity is increased. Left Thyroid Lobe: 4.4 x 1.5 x 1.8 cm, volume 6.2 mL. Parenchyma: The gland echotexture is heterogeneous. Thyroid vascularity is increased. Isthmus: 0.3 cm in maximum AP dimension. No focal thyroid nodule is seen. NODES: No lymphadenopathy is seen in the tissue surrounding the thyroid gland. Assessment & Plan Assessment & Plan (1) Hyperthyroidism: Code(s): E05.90 - Thyrotoxicosis, unspecified without thyrotoxic crisis or storm Category: Medical Plan: Patient with new onset of hyperthyroidism since spring Started methimazole 5 mg daily since 06/19/2024, dose increased to 10 mg daily on 07/01/24 Also taking propranolol 60 mg as needed Most recent labs on 07/28/2024 showed TSH still remains suppressed and total T3 is elevated in the 300s, however free T4 have normalized. TSI antibodies noted to be positive at 280 consistent with Graves disease. Explained to the patient that she has history of celiac disease, making her susceptible to other autoimmune conditions. Patient had thyroid ultrasound done in June 2024 as well which showed no nodules. At this time since she continues to have tremors and palpitations, and her total T3 still elevated, we will increase methimazole to 15 mg daily with 10 mg in the morning and 5 mg in the evening. We will have her repeat thyroid function tests in 5 weeks from dose change. Discussed with patient that about 30% of the patients have remission after 12-18 months of treatment with methimazole. More recent data has shown longer periods of treatment resulting in better remission rates as well. At this time we will plan to continue treatment with methimazole and continue adjusting the dose as needed. In the long run if she does not have remission, we also briefly discussed definitive therapy options of radioactive iodine ablation and total thyroidectomy and the need for requiring long-term levothyroxine therapy after those procedures. All questions were answered. Patient verbalized understanding and agreed with the plan. Lab: -increase methimazole to 15 mg daily with 10 mg in the morning and 5 mg in the evening -ordered TSH, free T4, total T3 to be done in 5 weeks -follow up in 3 months The following were discussed as potential side effects of methimazole: -Serious skin rashes -nausea, vomiting, or severe hepatic injury -Agranulocytosis: a rare side effect of methimazole involves a severe decrease in the production of white blood cells. This condition is extremely serious, but affects only one out of every 200 to 500 people who take an antithyroid drug. Agranulocytosis more commonly occurs within the first three months of starting treatment with an antithyroid drug, but can occur at any time. If patient develops a fever (temperature above 100.5F), or other signs or symptoms of infection, she should stop taking the tapazole and immediately have a complete blood count (CBC) done. Serious and potentially life threatening infections, or even , can occur before agranulocytosis resolves. However, once the antithyroid drug is stopped, agranulocytosis usually resolves within a week. - Arthralgias, myalgias -Renal: Nephritis - Fever Patient will stop medication and call our office if these occur. (2) Graves disease: Code(s): E05.00 - Thyrotoxicosis with diffuse goiter without thyrotoxic crisis or storm Category: Medical Plan: See above Plan I spent 30 minutes in reviewing the record, seeing the patient and documenting in the medical record. Orders: Orders Thyroid Stimulating Hormone 5 Weeks E05.00 - Thyrotoxicosis with diffuse goiter without thyrotoxic crisis or storm, E05.90 - Thyrotoxicosis, unspecified without thyrotoxic crisis or storm Free T4 (Free Thyroxine) 5 Weeks E05.00 - Thyrotoxicosis with diffuse goiter without thyrotoxic crisis or storm, E05.90 - Thyrotoxicosis, unspecified without thyrotoxic crisis or storm Triiodothyronine T3 Total 5 Weeks E05.00 - Thyrotoxicosis with diffuse goiter without thyrotoxic crisis or storm, E05.90 - Thyrotoxicosis, unspecified without thyrotoxic crisis or storm Medications: New methimazole Take one tablet in morning and 2 tablets in evening 90 tabs 6RF Discontinued methimazole Discontinued Reason: Duplicate 10 mg (2 x 5 mg) PO DAILY 120 tabs 2RF hyperthyroidism Coding Level of Care Code Est Pt Level 4 (75456) Diagnoses Hyperthyroidism E05.90 Graves disease E05.00 Time Spent (min) 30
== END 2024-08-05 08:16 | disposition home or self-care (01) ==
PROVIDERS: PCP Internal Medicine; Visit Provider Student in an Organized Health Care Education/Training Program
DX: E05.90 Thyrotoxicosis, unspecified without thyrotoxic crisis or storm (principal); E05.00 Thyrotoxicosis with diffuse goiter without thyrotoxic crisis or storm
CPT/HCPCS: 99214

== ENCOUNTER → 2024-08-05 07:31 | Outpatient (BNVA) | payer BC, SELFPAY | PROVIDERS: PCP Internal Medicine; Visit Provider Student in an Organized Health Care Education/Training Program ==

== ENCOUNTER 2024-09-04 06:21 | Outpatient (REF) | payer BC, SELFPAY ==
[2024-09-04 08:29] LABS: Free T4 (Free Thyroxine) 1.19 ng/dL (0.71-1.85); Thyroid Stimulating Hormone < 0.01 uIU/mL (0.32-4.0)
[2024-09-05 17:17] LABS: Triiodothyronine T3 Total 184 ng/dL (76-181)
== END 2024-09-04 06:22 | disposition home or self-care (01) ==
LOC: HO.LAB 06:21
PROVIDERS: PCP Internal Medicine; Visit Provider Student in an Organized Health Care Education/Training Program
DX: E05.00 Thyrotoxicosis with diffuse goiter without thyrotoxic crisis or storm (principal); E09.00 Drug or chemical induced diabetes mellitus with hyperosmolarity without nonketotic hyperglycemic-hyperosmolar coma (NKHHC)
CPT/HCPCS: 36415; 84439; 84443; 84480

== ENCOUNTER 2024-10-29 06:12 | Outpatient (REF) | payer BC, SELFPAY ==
[2024-10-29 08:25] LABS: Free T4 (Free Thyroxine) 0.95 ng/dL (0.71-1.85); Thyroid Stimulating Hormone < 0.01 uIU/mL (0.32-4.0)
[2024-10-30 13:09] LABS: Triiodothyronine T3 Total 130 ng/dL (76-181)
== END 2024-10-29 06:13 | disposition home or self-care (01) ==
LOC: HO.LAB 06:12
PROVIDERS: PCP Internal Medicine; Visit Provider Student in an Organized Health Care Education/Training Program
DX: E05.00 Thyrotoxicosis with diffuse goiter without thyrotoxic crisis or storm (principal); E05.90 Thyrotoxicosis, unspecified without thyrotoxic crisis or storm
CPT/HCPCS: 36415; 84439; 84443; 84480

== ENCOUNTER 2024-11-04 07:26 | Outpatient (AMB) | payer BC, SELFPAY ==
[2024-11-04 07:43] VITALS: BP 112/68; PULSE 72; BMI 24.2
--- NOTE | 2024-11-04 07:43 | A.OFFVIS_ITS ---
Vital Signs 11/04/24 07:43 Height 5 ft 3 in Weight 136 lb 7.458 oz BMI 24.2 BP 112/68 Blood Pressure Location Lt brachial Position Sitting Pulse 72 Pulse Source Pulse Oximeter Intake Visit Reasons: Hyperthyroidism/LVM Intake Note: Patient present today for Hyperthyroidism office visit. Wine Fermenter Required: No Accompanied by: Self / Same As Patient Allergies wheat [WHEAT] Adverse Reaction (Intermediate, Verified 11/04/24 07:47) GI UPSET Medication List - Last Reconciled 11/04/24 by Laverne Gordillo MD methimazole Take one tablet in morning and 2 tablets in evening HPI Comments Details: 54 years old female with history of celiac disease coming in today for follow up of hyperthyroidism due to Grave's disease. HPI from prior visit In February 2024: started experienceing worsening hot flashes, increased sw eating, voice was hoarse with sore throat Started noticing tremors in summer 2023, started having palpitations following that Decreased endurance Was diagnosed with hyperthyrodism June 192023 TSH <0.01 free t4 3.23 Symptoms were to the extent that she had to go to the ED and Started methimazole 5 mg daily june 19, 2024 saw me 07/01/24 Methimazole increased to 10 mg daily on that visit Labs from 07/28/24 showed TSH remaines suppressed but free t4 has normalized, TSI elevated at 280 confirmuing Graves disease 08/05/24 : increased methimazole to 15 mg daily with 10 mg in the morning and 5 mg in the evening Interval history 11/04/24 Most recent labs from 10/29/2024 showed TSH still suppressed at 0.01, however free T4 has normalized to 0.95, total T3 also normal at 130. Currently taking methimazole 15 mg daily with 10 mg in the morning and 5 mg in the evening. Not taking the 5 mg in the evening consistently forgets it about 70% of the time. Tremors and palpitations resolved.. Sleeping is much better. Diaphoresis resolved. Regular bowel movements. Postmenopausal No skin or hair chnages Gained 4 lbs since August 2024 No new vision chnages but has early signs of macular degeneration Soreness in throat resolved Taking propranolol 60 XR as needed Past medical Celiac Family history Mother: hypothyroidism Father: HTN Paternal grandmother: Stroke social history No smoking No drug use Alcohol use once or twice a week Review of systems Constitutional: no fevers, chills HEENT: no changes in vision Cardiac: Has palpitations. Pulmonary: No SOB GI:No abdominal pain, no nausea or vomiting, no anorexia, no blood in stool : no burning micturition, dysuria or increase in urinary frequency Physical exam General: sitting comfortably in no acute distress HEENT: normocephalic/atraumatic, moist oral mucosa Neck: supple, symmetrical, no thyromegaly , no dorsocervical or supraclavicular fat pads Cardiac: normal heart sounds Pulm: normal breath sounds B/L, no added breath sounds Abd: not distended, no tenderness Extremities: no edema, no signs of myxedema, fine tremors noted Neuro: AAO x3, Speech: normal, no facial droop, moving all 4 extremities Laboratory Tests 06/20/21 04/21/23 06/17/24 10:28 07:31 15:21 TSH 0.84 1.29 < 0.01 L Free T4 2.59 H Free T3 >20.0 H Total T3 Thyroid Stim Immunoglob Thyroid Peroxidase Ab 06/19/24 06/27/24 07/28/24 22:58 06:15 09:02 TSH < 0.01 L < 0.01 L < 0.01 L Free T4 3.23 H 2.00 H 1.67 Free T3 14.2 H Total T3 303 H Thyroid Stim Immunoglob 280 H Thyroid Peroxidase Ab 3 09/04/24 10/29/24 06:30 06:21 TSH < 0.01 L < 0.01 L Free T4 1.19 0.95 Free T3 Total T3 184 H 130 Thyroid Stim Immunoglob Thyroid Peroxidase Ab US THYROID 06/23/24 CLINICAL INFORMATION: Hyperthyroidism, thyrotoxicosis. COMPARISON: None available. TECHNIQUE: Linear transducer grayscale and color Doppler examination with attention to the region of the thyroid. FINDINGS: SIZE: Measurements of the thyroid lobes and nodules are given in sagittal, anteroposterior and transverse dimensions respectively. Right Thyroid Lobe: 4.7 x 1.5 x 2.1 cm, volume 7.7 mL. Parenchyma: The gland echotexture is heterogeneous. Thyroid vascularity is increased. Left Thyroid Lobe: 4.4 x 1.5 x 1.8 cm, volume 6.2 mL. Parenchyma: The gland echotexture is heterogeneous. Thyroid vascularity is increased. Isthmus: 0.3 cm in maximum AP dimension. No focal thyroid nodule is seen. NODES: No lymphadenopathy is seen in the tissue surrounding the thyroid gland. US/US thyroid IMPRESSION: Heterogeneous hypervascular thyroid which can be seen in the setting of acute thyroiditis. FORMERLY [facility], [facility] Medical History (Updated 08/05/24 @ 07:54 by Laverne Gordillo MD) Graves disease Hyperthyroidism Surgical History History of breast implant No pertinent past surgical history Social History Alcohol intake: current Alcohol intake frequency: does not drink Patient Tobacco Use Status: Never used Tobacco Assessment & Plan Assessment & Plan (1) Hyperthyroidism: Code(s): E05.90 - Thyrotoxicosis, unspecified without thyrotoxic crisis or storm Category: Medical Plan: Patient with new onset of hyperthyroidism since spring Started methimazole 5 mg daily since 06/19/2024, dose increased to 10 mg daily on 07/01/24 , 08/05/24 : increased methimazole to 15 mg daily with 10 mg in the morning and 5 mg in the evening TSI antibodies noted to be positive at 280 consistent with Graves disease. Explained to the patient that she has history of celiac disease, making her susceptible to other autoimmune conditions. Patient had thyroid ultrasound done in June 2024 as well which showed no nodules. Most recently patient has been taking methimazole 10 mg daily in the morning and has not been adherent to the 5 mg dose. Labs from 10/29/2024 showed TSH still suppressed at 0.01, however free T4 has normalized to 0.95, total T3 also normal at 130. Discussed with patient that about 30% of the patients have remission after 12-18 months of treatment with methimazole. More recent data has shown longer periods of treatment resulting in better remission rates as well. At this time we will plan to continue treatment with methimazole and continue adjusting the dose as needed. In the long run if she does not have remission, we also briefly discussed definitive therapy options of radioactive iodine ablation and total thyroidectomy and the need for requiring long-term levothyroxine therapy after those procedures. All questions were answered. Patient verbalized understanding and agreed with the plan. Lab: -decrease methimazole to 10 mg in the morning -ordered TSH, free T4, total T3 to be done in 5 weeks -follow up in 3 months with another set of labs The following were discussed as potential side effects of methimazole: -Serious skin rashes -nausea, vomiting, or severe hepatic injury -Agranulocytosis: a rare side effect of methimazole involves a severe decrease in the production of white blood cells. This condition is extremely serious, but affects only one out of every 200 to 500 people who take an antithyroid drug. Agranulocytosis more commonly occurs within the first three months of starting treatment with an antithyroid drug, but can occur at any time. If patient develops a fever (temperature above 100.5F), or other signs or symptoms of infection, she should stop taking the tapazole and immediately have a complete blood count (CBC) done. Serious and potentially life threatening infections, or even , can occur before agranulocytosis resolves. However, once the antithyroid drug is stopped, agranulocytosis usually resolves within a week. - Arthralgias, myalgias -Renal: Nephritis - Fever Patient will stop medication and call our office if these occur. (2) Graves disease: Code(s): E05.00 - Thyrotoxicosis with diffuse goiter without thyrotoxic crisis or storm Category: Medical Plan: See above Plan I spent 30 minutes in reviewing the record, seeing the patient and documenting in the medical record. Orders: Orders Thyroid Stimulating Hormone 4 Weeks E05.00 - Thyrotoxicosis with diffuse goiter without thyrotoxic crisis or storm, E05.90 - Thyrotoxicosis, unspecified without thyrotoxic crisis or storm Free T4 (Free Thyroxine) 4 Weeks E05.00 - Thyrotoxicosis with diffuse goiter without thyrotoxic crisis or storm, E05.90 - Thyrotoxicosis, unspecified without thyrotoxic crisis or storm Triiodothyronine T3 Total 4 Weeks E05.00 - Thyrotoxicosis with diffuse goiter without thyrotoxic crisis or storm, E05.90 - Thyrotoxicosis, unspecified without thyrotoxic crisis or storm Thyroid Stimulating Hormone 01/26/25 E05.00 - Thyrotoxicosis with diffuse goiter without thyrotoxic crisis or storm, E05.90 - Thyrotoxicosis, unspecified without thyrotoxic crisis or storm Free T4 (Free Thyroxine) 01/26/25 E05.00 - Thyrotoxicosis with diffuse goiter without thyrotoxic crisis or storm, E05.90 - Thyrotoxicosis, unspecified without thyrotoxic crisis or storm Triiodothyronine T3 Total 01/26/25 E05.00 - Thyrotoxicosis with diffuse goiter without thyrotoxic crisis or storm, E05.90 - Thyrotoxicosis, unspecified without thyrotoxic crisis or storm Medications: Changed From methimazole Take one tablet in morning and 2 tablets in evening 90 tabs 6RF To methimazole (2 x 5 mg) 10 mg orally Take two tablets in morning; 180 tabs 5RF Patient Instructions: Stop propranolol Reduce methimazole to 10 mg daily ( two 5 mg tablets) Do blood work 12/01/24 Repeat blood work in January 2025 (01/26/25) I will see you back in January 2025 The following were discussed as potential side effects of methimazole: -Serious skin rashes -nausea, vomiting, or severe hepatic injury -Agranulocytosis: a rare side effect of methimazole involves a severe decrease in the production of white blood cells. This condition is extremely serious, but affects only one out of every 200 to 500 people who take an antithyroid drug. Agranulocytosis more commonly occurs within the first three months of starting treatment with an antithyroid drug, but can occur at any time. If patient develops a fever (temperature above 100.5F), or other signs or symptoms of infection, she should stop taking the tapazole and immediately have a complete blood count (CBC) done. Serious and potentially life threatening infections, or even , can occur before agranulocytosis resolves. However, once the antithyroid drug is stopped, agranulocytosis usually resolves within a week. - Arthralgias, myalgias -Renal: Nephritis - Fever Patient will stop medication and call our office if these occur. Coding Level of Care Code Est Pt Level 4 (78535) Diagnoses Hyperthyroidism E05.90 Graves disease E05.00 Time Spent (min) 30
== END 2024-11-04 08:08 | disposition home or self-care (01) ==
PROVIDERS: PCP Internal Medicine; Visit Provider Student in an Organized Health Care Education/Training Program
DX: E05.90 Thyrotoxicosis, unspecified without thyrotoxic crisis or storm (principal); E05.00 Thyrotoxicosis with diffuse goiter without thyrotoxic crisis or storm
CPT/HCPCS: 99214

== ENCOUNTER → 2024-11-04 07:26 | Outpatient (BNVA) | payer BC, SELFPAY | PROVIDERS: PCP Internal Medicine; Visit Provider Student in an Organized Health Care Education/Training Program ==

== ENCOUNTER 2024-11-21 11:07 | Outpatient (REF) | payer BC, SELFPAY ==
[2024-11-21 11:36] LABS: MANUAL DIFF FLAG NO
[2024-11-21 12:30] LABS: Basophils Percent Auto 0.5 % (0-2); Eosinophils Absolute Auto 0.1 X10*3/uL (0.0-0.4); Eosinophils Percent Auto 2.4 % (0-4); Hematocrit 42.1 % (37.0-47.0); Hemoglobin 13.8 g/dl (12.0-16.0); Imm Gran Abs Auto 0.02 X10*3/uL (0.00-0.03); Imm Gran Pct Auto 0.4 % (0.0-0.4); Lymphocytes Absolute Auto 2.5 X10*3/uL (1.2-4.9); Lymphocytes Percent Auto 44.8 % (20-40); Mean Corpuscular HGB Conc 32.8 g/dl (31.0-35.0); Mean Corpuscular Hemoglobin 28.8 pg (27.0-33.0); Mean Corpuscular Volume 87.7 fL (80.0-98.0); Mean Platelet Volume 9.3 fL (9.4-12.3); Monocytes Absolute Auto 0.4 X10*3/uL (0.1-1.2); Monocytes Percent Auto 7.1 % (2-11); Neutrophils Absolute Auto 2.5 x10*3/uL (2.0-8.3); Neutrophils Percent Auto 44.8 % (45-73); Platelet Count 271 X10*3/uL (160-400); Red Cell Distribution Width 12.7 % (11.0-16.0); White Blood Count 5.5 X10*3/uL (4.8-10.8)
[2024-11-21 13:24] LABS: Free T4 (Free Thyroxine) 0.73 ng/dL (0.71-1.85); Thyroid Stimulating Hormone 1.07 uIU/mL (0.32-4.0)
[2024-11-23 10:04] LABS: Triiodothyronine T3 Total 93 ng/dL (76-181)
== END 2024-11-21 11:08 | disposition home or self-care (01) ==
LOC: HO.LAB 11:07
PROVIDERS: PCP Internal Medicine; Visit Provider Student in an Organized Health Care Education/Training Program
DX: E05.00 Thyrotoxicosis with diffuse goiter without thyrotoxic crisis or storm (principal); E05.90 Thyrotoxicosis, unspecified without thyrotoxic crisis or storm
CPT/HCPCS: 36415; 84439; 84443; 84480; 85025

== ENCOUNTER 2025-02-02 06:04 | Outpatient (REF) | payer BC, SELFPAY ==
[2025-02-02 07:59] LABS: Free T4 (Free Thyroxine) 0.87 ng/dL (0.71-1.85); Thyroid Stimulating Hormone 2.69 uIU/mL (0.32-4.0)
[2025-02-03 07:34] LABS: Triiodothyronine T3 Total 92 ng/dL (76-181)
== END 2025-02-02 06:05 | disposition home or self-care (01) ==
LOC: HO.LAB 06:04
PROVIDERS: PCP Internal Medicine; Visit Provider Student in an Organized Health Care Education/Training Program
DX: E05.00 Thyrotoxicosis with diffuse goiter without thyrotoxic crisis or storm (principal); E05.90 Thyrotoxicosis, unspecified without thyrotoxic crisis or storm
CPT/HCPCS: 36415; 84439; 84443; 84480

== ENCOUNTER 2025-02-05 08:01 | Outpatient (AMB) | payer BC, SELFPAY ==
[2025-02-05 08:03] VITALS: BP 114/74; PULSE 77; O2SAT 99; BMI 25.0
--- NOTE | 2025-02-05 08:03 | A.OFFVIS_ITS ---
Vital Signs 02/05/25 08:03 Height 5 ft 3 in Weight 141 lb 1.533 oz BMI 25.0 BP 114/74 Blood Pressure Location Rt brachial Position Sitting Pulse 77 Pulse Source Pulse Oximeter Pulse Oximetry (%) 99 Oxygen Delivery Method Room Air Intake Visit Reasons: Hyperthyroidism Intake Note: Patient present today for Hyperthyroidism office visit. Senior Games Technician Required: No Accompanied by: Self / Same As Patient Allergies wheat [WHEAT] Adverse Reaction (Intermediate, Verified 11/04/24 07:47) GI UPSET Medication List - Last Reconciled 02/05/25 by Laverne Gordillo MD methimazole 10 mg orally Take two tablets in morning; HPI Comments Details: 54 years old female with history of celiac disease coming in today for follow up of hyperthyroidism due to Grave's disease. HPI from prior visit In February 2024: started experienceing worsening hot flashes, increased sweating, voice was hoarse with sore throat Started noticing tremors in summer 2023, started having palpitations following that Decreased endurance Was diagnosed with hyperthyrodism June 192023 TSH <0.01 free t4 3.23 Symptoms were to the extent that she had to go to the ED and Started methimazole 5 mg daily june 19, 2024 saw me 07/01/24 Methimazole increased to 10 mg daily on that visit Labs from 07/28/24 showed TSH remaines suppressed but free t4 has normalized, TSI elevated at 280 confirmuing Graves disease 08/05/24 : increased methimazole to 15 mg daily with 10 mg in the morning and 5 mg in the evening labs from 10/29/2024 showed TSH still suppressed at 0.01, however free T4 has normalized to 0.95, total T3 also normal at 130. Interval history 02/05/2025 11/04/2024: Methimazole reduced to 10 mg daily 02/02/2025: TSH 2.69, free T4 0.87, total T3 92, all normal Tremors and palpitations resolved.. Working out regularly feels good Regular bowel movements. Postmenopausal No skin or hair chnages Gained 4 lbs since October 2024, back to normal weight for her No new vision chnages but has early signs of macular degeneration Past medical Celiac Family history Mother: hypothyroidism Father: HTN Paternal grandmother: Stroke social history No smoking No drug use Alcohol use once or twice a week Physical exam General: sitting comfortably in no acute distress HEENT: normocephalic/atraumatic, moist oral mucosa Neck: supple, symmetrical, no thyromegaly , no dorsocervical or supraclavicular fat pads Cardiac: normal heart sounds Pulm: normal breath sounds B/L, no added breath sounds Abd: not distended, no tenderness Extremities: no edema, no signs of myxedema, fine tremors noted Neuro: AAO x3, Speech: normal, no facial droop, moving all 4 extremities Laboratory Tests 06/20/21 04/21/23 06/17/24 10:28 07:31 15:21 TSH 0.84 1.29 < 0.01 L Free T4 2.59 H Free T3 >20.0 H Total T3 Thyroid Stim Immunoglob Thyroid Peroxidase Ab 06/19/24 06/27/24 07/28/24 22:58 06:15 09:02 TSH < 0.01 L < 0.01 L < 0.01 L Free T4 3.23 H 2.00 H 1.67 Free T3 14.2 H Total T3 303 H Thyroid Stim Immunoglob 280 H Thyroid Peroxidase Ab 3 09/04/24 10/29/24 06:30 06:21 TSH < 0.01 L < 0.01 L Free T4 1.19 0.95 Free T3 Total T3 184 H 130 Thyroid Stim Immunoglob Thyroid Peroxidase Ab Laboratory Tests 11/21/24 02/02/25 11:34 06:05 TSH 1.07 2.69 Free T4 0.73 0.87 Total T3 93 92 US THYROID 06/23/24 CLINICAL INFORMATION: Hyperthyroidism, thyrotoxicosis. COMPARISON: None available. TECHNIQUE: Linear transducer grayscale and color Doppler examination with attention to the region of the thyroid. FINDINGS: SIZE: Measurements of the thyroid lobes and nodules are given in sagittal, anteroposterior and transverse dimensions respectively. Right Thyroid Lobe: 4.7 x 1.5 x 2.1 cm, volume 7.7 mL. Parenchyma: The gland echotexture is heterogeneous. Thyroid vascularity is increased. Left Thyroid Lobe: 4.4 x 1.5 x 1.8 cm, volume 6.2 mL. Parenchyma: The gland echotexture is heterogeneous. Thyroid vascularity is increased. Isthmus: 0.3 cm in maximum AP dimension. No focal thyroid nodule is seen. NODES: No lymphadenopathy is seen in the tissue surrounding the thyroid gland. US/US thyroid IMPRESSION: Heterogeneous hypervascular thyroid which can be seen in the setting of acute thyroiditis. [facility] Medical History Graves disease Hyperthyroidism Surgical History History of breast implant No pertinent past surgical history Social History Alcohol intake: current Alcohol intake frequency: does not drink Patient Tobacco Use Status: Never used Tobacco Physical Exam Vital Signs: Last Vital Signs Pulse 77 02/05/25 08:03 BP 114/74 02/05/25 08:03 Pulse Ox 99 02/05/25 08:03 Oxygen Delivery Method Room Air 02/05/25 08:03 BMI result Body Mass Index 25.0 Assessment & Plan Assessment & Plan (1) Hyperthyroidism: Code(s): E05.90 - Thyrotoxicosis, unspecified without thyrotoxic crisis or storm Category: Medical Plan: Patient with new onset of hyperthyroidism since spring Started methimazole 5 mg daily since 06/19/2024, dose increased to 10 mg daily on 07/01/24 , 08/05/24 : increased methimazole to 15 mg daily with 10 mg in the morning and 5 mg in the evening TSI antibodies noted to be positive at 280 consistent with Graves disease. Explained to the patient that she has history of celiac disease, making her susceptible to other autoimmune conditions. Patient had thyroid ultrasound done in June 2024 as well which showed no nodules. 11/04/2024: Methimazole reduced to 10 mg daily 02/02/2025: TSH 2.69, free T4 0.87, total T3 92, all normal Patient does not have any symptoms currently. Discussed with patient that about 30% of the patients have remission after 12-18 months of treatment with methimazole. More recent data has shown longer periods of treatment resulting in better remission rates as well. At this time we will plan to continue treatment with methimazole and continue adjusting the dose as needed. In the long run if she does not have remission, we also briefly discussed definitive therapy options of radioactive iodine ablation and total thyroidectomy and the need for requiring long-term levothyroxine therapy after those procedures. All questions were answered. Patient verbalized understanding and agreed with the plan. Plan: -decrease methimazole to 5 mg in the morning -ordered TSH, free T4 to be done in 6 weeks -follow up in 6 months The following were discussed as potential side effects of methimazole: -Serious skin rashes -nausea, vomiting, or severe hepatic injury -Agranulocytosis: a rare side effect of methimazole involves a severe decrease in the production of white blood cells. This condition is extremely serious, but affects only one out of every 200 to 500 people who take an antithyroid drug. Agranulocytosis more commonly occurs within the first three months of starting treatment with an antithyroid drug, but can occur at any time. If patient develops a fever (temperature above 100.5F), or other signs or symptoms of infection, she should stop taking the tapazole and immediately have a complete blood count (CBC) done. Serious and potentially life threatening infections, or even , can occur before agranulocytosis resolves. However, once the antithyroid drug is stopped, agranulocytosis usually resolves within a week. - Arthralgias, myalgias -Renal: Nephritis - Fever Patient will stop medication and call our office if these occur. (2) Graves disease: Code(s): E05.00 - Thyrotoxicosis with diffuse goiter without thyrotoxic crisis or storm Category: Medical Plan: See above Plan I spent 30 minutes in reviewing the record, seeing the patient and documenting in the medical record. Orders: Orders Thyroid Stimulating Hormone 6 Weeks E05.00 - Thyrotoxicosis with diffuse goiter without thyrotoxic crisis or storm, E05.90 - Thyrotoxicosis, unspecified without thyrotoxic crisis or storm Free T4 (Free Thyroxine) 6 Weeks E05.00 - Thyrotoxicosis with diffuse goiter without thyrotoxic crisis or storm, E05.90 - Thyrotoxicosis, unspecified without thyrotoxic crisis or storm Medications: Changed From methimazole (2 x 5 mg) 10 mg orally Take two tablets in morning; 180 tabs 5RF To methimazole 5 mg PO DAILY 90 tabs 4RF Patient Instructions: decrease methimazole to 5 mg daily Do blood work in 6 weeks, we will communicate results with you through the portal Follow up in 6 months The following were discussed as potential side effects of methimazole: - Serious skin rashes - nausea, vomiting, or severe hepatic injury - Agranulocytosis: a rare side effect of methimazole involves a severe decrease in the production of white blood cells. This condition is extremely serious, but affects only one out of every 200 to 500 people who take an antithyroid drug. Agranulocytosis more commonly occurs within the first three months of starting treatment with an antithyroid drug, but can occur at any time. If patient develops a fever (temperature above 100.5F), or other signs or symptoms of infection, she should stop taking the tapazole and immediately have a complete blood count (CBC) done. Serious and potentially life threatening infections, or even , can occur before agranulocytosis resolves. However, once the antithyroid drug is stopped, agranulocytosis usually resolves within a week. - Arthralgias, myalgias - Renal: Nephritis - Fever Patient will stop medication and call our office if these occur. Coding Level of Care Code Est Pt Level 4 (74545) Diagnoses Hyperthyroidism E05.90 Graves disease E05.00 Time Spent (min) 30
--- OUTSIDE RECORDS SUMMARY | 2025-02-05 08:06 | XMS_ITS ---
Author Organization [facility] Address [address] [place] [address] Care Team Providers Care Dude Wrangler Name Role Phone Tomas Mccain Primary Care Provider Sagar Granado [phone] REASON FOR VISIT colon recall Encounters Encounter Location Date Provider Diagnosis [facility] [address] [place] [address] 08/15/2024 Sagar Jeffrey Plan Of Treatment Next Appt Details Provider Name:Sagar Jeffrey , 04/27/2025 12:30:00 PM, [address] [place] [address] , [place], [place], [id number], Progress Notes * CALEB MCCORMACKDOB:[birth year] (54 yo F)Acc No.[id number]:08/15/2024 Progress Notes Patient:?CALEB MCCORMACK Provider:?Sagar Jeffrey MD :1970???Age:54 Y???Sex:Female D ate:08/15/2024 [address] [id number] Pcp:Tomas Mccain Subjective: * Chief Complaints: * ???1. Colon recall. * Medical History:? Objective: * Vitals:? Assessment: Plan: * Treatment: * * The named appointment provid er may or may not be the originator of this progress note, and it is not deemed complete until electronically signed by the appointment provider. Sign off status: Pending * Provider:?Sagar Jeffrey MD Date:? 024 Generated for Yuan mckeon/Kirk/Cris on:?02/05/2025 08:06 AM EDT
--- OUTSIDE RECORDS SUMMARY | 2025-02-05 08:06 | XMS_ITS | Data Portability ---
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 REVIEW OF PRIOR EXTERNAL NOTES/RESULTS, ORDERING OF TEST(S) CATEGORY 2. ASSESSMENT REQUIRING INDEPENDENT HISTORIAN(S) INCLUDE WHO THE HISTORIAN IS AND RELATION TO PT AND WHY PT IS UNABLE TO GIVE COMPLETE HISTORY ELEMENT 3: RISK (LOW) RISK OF COMPLICATIONS AND/OR MORBIDITY OR MORTALITY OF PATIENT MANAGEMENT PROVIDER MUST THOROUGHLY DOCUMENT ALL OF THE ELEMENTS COVERED Not available 07/17/2023 17:10:11 Plan of Treatment Reminders Order Date Submit Date Provider Last Modified By Organization Details Last Modified Time Details Appointments ANNUAL EXAM 2024 09:00A OZZY SHAY Not available Not available Not available Lab TSH + free T4, serum 2023 024 [facility], [address] [place] [address], [place], [address], 06/27/2024 11:22:42 T3, free, serum or plasma 2023 024 [facility], [address] [place] [address], [id number], 06/30/2024 11:35:15 thyroid peroxidas e (tpo) Ab, serum 2023 024 [facility], [address] [place] [address], [id number], 06/25/2024 14:27:46 TSH + free T4, serum 2023 024 [facility], [address] [place] [address], [id number], 09/05/2024 11:37:33 T3, free, serum or plasma 2023 024 [facility], [address] [place] [address], [id number], 09/08/2024 11:39:40 TSH + free T4, serum 2023 024 [facility], [address] [place] [address], [id number], 10/30/2024 11:08:25 T3, free, serum or plasma 2023 024 [facility], [address] [place] [address], [id number], 10/31/2024 11:08:49 TSH + free T4, serum 2023 024 [facility], [address] [place] [address], [id number], 10/30/2024 11:08:25 T3, free, serum or plasma 2023 024 [facility], [address] [place] [address], [id number], 10/31/2024 11:08:49 TSH + free T4, serum 2023 024 [facility], [address] [place] [address], [id number], 06/18/2024 11:25:22 T3, free, serum or plasma 2023 024 [facility], [address] [place] [address], [id number], 06/17/2024 15:13:43 ESR (erythroc yte sedimenta tion rate), blood 2023 024 [facility], [address] [place] [address], [id number], 06/17/2024 15:13:43 C reactive protein, QN, serum or plasma 2023 024 [facility], [address] [place] [address], [id number], 06/17/2024 15:13:43 iron + TIBC + ferritin, serum 2023 024 [facility], [address] [place] [address], [id number], 06/17/2024 15:13:43 CBC w/ auto diff 2023 024 [facility], [address] [place] [address], [id number], 06/17/2024 15:13:43 hemoglobi n A1c, QN, blood 2023 024 [facility], [address] [place] [address], [id number], 06/17/2024 15:13:42 CK (creatine kinase), total, serum 2023 024 [facility], [address] [place] [address], [id number], 06/17/2024 15:13:42 magnesium , serum or plasma 2023 024 [facility], [address] [place] [address], [id number], 06/17/2024 15:13:43 CMP, serum or plasma 2023 024 [facility], [address] [place] [address], [address], 06/18/2024 11:25:22 vitamin D, 25-hydrox y, total, serum 2023 024 [facility], [address] [place] [address], [address], 06/17/2024 15:13:43 vitamin B12 + folate, serum or blood 2023 024 [facility], [address] [place] [address], [id number], 06/17/2024 15:13:43 PTH (parathyr oid hormone), intact + calcium, serum or plasma 2023 024 [facility], [address] [place] [address], [id number], 06/17/2024 15:13:43 phosphoru s, serum or plasma 2023 024 [facility], [address] [place] [address], [id number], 06/17/2024 15:13:42 TAINA + rf (antinucl ear antibodie s + rheumatoi d factor), quantitat aga, serum 2023 024 [facility], [address] [place] [address], [id number], 06/23/2024 11:31:27 lyme disease igg+igm, serum, reflex western blot 2023 024 [facility], [address] [place] [address], [id number], 06/20/2024 11:38:33 anaplasma phagocyto philum + ehrlichia chaffeens is IgG + IgM panel, serum 2023 [facility], [address] [place] [address], [address], 06/25/2024 11:52:05 CMP, serum or plasma 2021 [facility], [address] [place] [address], [id number], 04/23/2023 11:22:41 CBC w/ auto diff 2021 [facility], [address] [place] [address], [address], 10/23/2022 14:10:37 lipid panel, blood 2021 [facility], [address] [place] [address], [address], 10/23/2022 14:10:37 vitamin D, 25-hydrox y, total, serum 2021 [facility], [address] [place] [address], [address], 10/23/2022 14:10:38 TSH, serum or plasma 2021 [facility], [address] [place] [address], [address], 10/23/2022 14:10:38 vitamin B12, serum 2021 [facility], [address] [place] [address], [address], 10/23/2022 14:10:37 Referral endocrino logy referral 2023 [facility] , [address] [place] [address] [place], [address], 06/30/2024 08:36:59 sleep medicine referral - severe snoring , daytime somnolenc e, unable to lose weightpat ient requests a home sleep study please 2022 023 [email or web address] Not available 07/18/2023 10:17:23 Procedures None recorded. Surgeries None recorded. Imaging None recorded. Medication Orders None recorded. Patient TargetsNo targets recorded. Patient Instructions Encounter Date Encounter Id Patient Instructions Last Modified By Organization Details Last Modified Time 07/17/2023 [id number] gluten-free diet : care instructions Not available 07/17/2023 17:13:04 snoring: care instructions Not available 07/17/2023 17:13:05 gastroesophageal reflux disease (GERD): care instructions Not available 07/17/2023 17:13:04 Reason for Referral Sleep Medicine Referral for Snoring severe snoring , daytime somnolence, unable to lose weightpatient requests a home sleep study please Referring Physician: Tomas Mccain, Internal Medicine, Encounter Date: 07/17/2023 Endocrinology Referral for H yperthyroidism hyperthyroidisim needs consult for removal Referring Physician: Jihan Guillen, Internal Medicine, Encounter Date: 06/25/2024 Results Created Date Observation Date Name Description Value Unit Range Abnormal Flag Note LastModifiedBy Organization Detail LastModifiedTime 04/10/2004/07/2023 sue CAMPOS, digit al, bilat eral No observ ation record ed. [email or web address] [address] [place], [address], 04/10/2023 08:12:26 05/01/20 24 04/18/2024 sue CAMPOS digit al, bilat eral No observ ation record ed. [address] [place], [address], 05/02/2024 08:31:10 06/20/2006/20/2024 CT, angio gram, chest , w/wo contr ast No observ ation record ed. [facility] (Medical Records) [address] [place], [address], 06/20/2024 08:07:26 06/26/20 24 06/23/2024 US, thyro id No observ ation record ed. [email or web address] [facility] Central Scheduling [address] [place], [address], 06/27/2024 08:57:53 Result Notes None recorded. Problems Name Problem SNOMED Code Status Onset Date Resolution Date Notes Provider Name and Address Organization Details Recorded Time Celiac disease 493144729 Active 2017 since age 28 ( Dr. Jeffrey) Charlotte ureña [facility] 8 11:35:49 Disease of liver 727081450 Active 2017 Fatty liver Charlotte ureña [facility] 8 11:36:05 Irregula r intermen strual bleeding 32407517 Active 2017 controlle d Charlotte ureña [facility] 8 11:37:19 Solar degenera tion 80367491 Active 2017 sun damage- sees derm Charlottelokesh ureña [facility] 8 13:40:11 Cyst of ovary 73017003 Active 2017 Charlotte ureña [facility] 8 13:40:36 Hypermet ropia 52123751 Active 2017 Charlotte ureña [facility] 8 13:41:27 Gastroes ophageal reflux disease 348774082 Active 2017 Charlotte ureña [facility] 8 13:57:52 Divertic ulosis of colon 413788132 Active 2018 ANIYA Fields [address] [place], [address], [facility] 9 11:55:28 Hemorrho ids 81919803 Active [address], [address], [facility] 9 11:55:36 Polyp of colon 27188121 Active [address], [address], [facility] 9 11:55:42 Acute otitis media 7822789 Active 2021 OZZY HARRELL [address] [place] [address], [address], [facility] 2 09:21:13 Snoring 20481388 Active 2022 Tomas Mccain DO [address] [place] [address], [address], [facility] 3 17:10:43 Intolera nt of heat 46556288 Active 2023 OZZY HARRELL [address] [place] [address], [address], [facility] 4 15:09:56 Muscle pain 89949911 Active 2023 OZZY HARRELL [address] [place] [address], [address], [facility] 4 15:10:32 Dizzines s 682182350 Active 2023 OZZY HARRELL [address] [place] [address], [address], [facility] 4 15:10:59 Tremor 35964033 Active 2023 OZZY HARRELL [address] [place] [address], [address], [facility] 4 15:13:15 Hyperthy roidism 12335520 Active 2023 OZZY HARRELL [address] [place] [address], [address], [facility] 4 11:20:04 Silvia adkins 61921850 Active 2023 OZZY HARRELL [address] [place], [address], [facility] 4 14:44:14 Problem Notes None recorded. Procedures Surgical History Date Name Laterality Status Provider Name and Address Organization Details Recorded Time 10/06/20 19 Colonoscopy completed [facility] 10/15/2019 12:19:08 01/19/20 19 Most Recent Mammogram completed [facility] 10/14/2019 15:18:47 01/03/20 19 Colonoscopy completed [facility] 01/03/2019 12:19:04 11/19/19 13 Date of Last Pap Smear completed [facility] 10/14/2019 15:37:36 12/20/19 11 colonoscopy completed February ANIYA Fields [address] [place], [address], [facility] 10/16/2018 09:12:40 Imaging Results Imaging Date Name Status LastModified by Organiz ation Details LastModified Time 04/07/2023 MAMMO, screening, digital, bilateral completed carole [address] [place], [address], 04/10/2023 08:12:26 04/18/2024 MAMMO, screening, digital, bilateral completed jose [address] [place], [address], 05/02/2024 08:31:10 06/20/2024 CT, angiogram, chest, w/wo contrast completed [facility] (Medical Records) [address] [place] [address], [address], 06/20/2024 08:07:26 06/23/2024 US[email or web address] [address] [place], [address], 06/27/2024 08:57:53 Procedure Notes None recorded. Medical Equipment None Reported. Allergies No known drug allergies Medications Name Sig Start Date Stop Date Status Note LastModified by Organization Details LastModified Time Hydromet 5 mg-1.5 mg/5 mL oral syrup 01/22 completed Not Available Not Available Not Available Mirena 21 mcg/24 hr (up to 8 years) 52 mg intrauterin e device Take by intrauter ine route. 11/14 completed Not Available Not Available Not Available azithromyci n 250 mg tablet 10/16 completed Not Available Not Available Not Available phenazopyri dine 200 mg tablet TAKE 1 TABLET BY MOUTH THREE TIMES DAILY FOR 2 DAYS. MAY CAUSE TEMPORARY DISCOLORA TION OF URINE AND PERMANENT DISCOLORA TION OF. CONTACT LENSES 10/23 completed Not Available Not Available Not Available propranolol ER 60 mg capsule,24 hr,extended release TAKE 1 CAPSULE BY MOUTH EVERY DAY active Not Available Not Available No t Available ciprofloxac in 500 mg tablet TAKE 1 TABLET BY MOUTH EVERY 12 HOURS FOR 5 DAYS 10/23 completed Not Available Not Available Not Available lorazepam 0.5 mg tablet TAKE 1 TABLET BY MOUTH EVERY DAY NEEDED active Not Available Not Available No t Available benzonatate 100 mg capsule Take 1 capsule 3 times a day by oral route for 7 days. 01/22 completed Not Available Not Available Not Available cephalexin 500 mg capsule TAKE 1 CAPSULE BY MOUTH FOUR TIMES DAILY FOR 10 DAYS 10/23 completed Not Available Not Available Not Available naproxen sodium 550 mg tablet TAKE 1 TABLET BY MOUTH TWICE DAILY FOR 7 DAYS NEEDED FOR ARTHRITIS 01/27 completed Not Available Not Available Not Available methimazole 5 mg tablet TAKE 2 TABLETS BY MOUTH DAILY FOR HYPERTHYR OIDISM active Not Available Not Available No t Available amoxicillin 875 mg-potassiu m clavulanate 125 mg tablet TAKE 1 TABLET BY MOUTH EVERY 12 HOURS FOR 7 DAYS 01/27 completed Not Available Not Available Not Available OsmoPrep 1.5 gram (1.102-0.39 8) tablet 11/14 completed Not Available Not Available Not Available hydrocodone -homatropin e 5 mg-1.5 mg/5 mL (5 mL) oral syrup Take 5 mL every 4 hours by oral route for 7 days. 01/22 completed Not Available Not Available Not Available Fluzone Quad (PF) 60 mcg (15 mcg x 4)/0.5 mL IM syringe ADM 0.5ML IM UTD 06/20 completed Not Available Not Available Not Available Vitals Date Recorded Body height Body mass index (BMI) Body weight Oxygen saturation Oxygen saturation in Arterial blood by Pulse oximetry Heart rate Systolic blood pressure Diastolic blood pressure Provider Name and Address Organization Details Last Updated DateTime 2 161.29 cm 25.5 kg/m2 07745.9 2 g 96 % 96 % 86 /min 112 mm[Hg] 70 mm[Hg] Skylar Saini [facility] 2 13:28:54 Date Recorded Body height Body mass index (BMI) Body weight Systolic blood pressure Diastolic blood pressure Provider Name and Address Organization Details Last Updated DateTime 01/28/2024 160.02 cm 25 kg/m2 40523.52 g 130 mm[Hg] 70 mm[Hg] Shelbie Ernandez [facility] 4 09:46:06 Date Recorded Body height Body mass index (BMI) Body weight Heart rate Oxygen saturation Oxygen saturation in Arterial blood by Pulse oximetry Systolic blood pressure Diastolic blood pressure Provider Name and Address Organization Details Last Updated DateTime 4 160.02 cm 24.4 kg/m2 60921.7 5 g 105 /min 97 % 97 % 110 mm[Hg] 70 mm[Hg] Jassi Venegas [facility] 4 14:46:06 Date Recorded Body height Body mass index (BMI) Body weight Heart rate Oxygen saturation Oxygen saturation in Arterial blood by Pulse oximetry Systolic blood pressure Diastolic blood pressure Provider Name and Address Organization Details Last Updated DateTime 4 160.02 cm 24.3 kg/m2 57924.1 5 g 108 /min 97 % 97 % 100 mm[Hg] 58 mm[Hg] Shelbie Ernandez [facility] 4 14:05:36 Social History Question Answer Notes LastModified by Organizat ion Details LastModified Time Tobacco Smoking Status Never Smoker Charlotte ureña [facility] 10/16/2018 09:00:13 What Was The Date Of Your Most Recent Tobacco Screening? 06/25/2024 [email or web address] Information not available 06/25/2024 Do You Or Have You Ever Used Any Other Forms Of Tobacco Or Nicotine? No [email or web address] Information not available 01/28/2024 Sex: Unknown Functional Status None recorded. Mental Status None recorded. Family History Relationship Description Onset Age of this Age Resolved Age Notes LastModified by Organization Details LastModified Time Paternal Grandfather Alzheimer's disease 60 [email or web address] Not available 10/16 09:14:39 Paternal Grandmother Cerebrovascu lar accident 50 [email or web address] Not available 09:14:57 Medical History No medical history recorded. Gynecological History Statement/Question Response Abnormal Pap N Sexually Active? Y STIs/STDs N Date of Last Pap Smear 11/19/2012 Sexual Problems? N Current Control Method IUD Most Recent Mammogram 01/18/2019 Age at Menarche 13 Age at First Child 21 Obstetrics History GPAL:G 2 P 2 0 0 2 Type Value Multiple Births 0 Full Term 2 Induced 0 Spontaneous 0 Premature 0 Living 2 Ectopics 0 Total 2 Immunizations Vaccine Type Date Status Note Provider Nam e and Address Organization Details Recorded Time COVID-19 vaccine, vector-nr, rS-ChAdOx1, PF, 0.5 mL 1 [facility] 06/20/2021 09:08:35 Td(adult) unspecified formulation 2 completed Charlotte ureña [facility] 10/15/2018 14:01:10 Influenza, split virus, quadrivalent, preservative 8 completed February [address], [address], [facility] 10/16/2018 09:09:47 TST-PPD intradermal 1 completed Charlotte ureña [facility] 10/14/2019 15:17:56 Influenza, split virus, quadrivalent, preservative 9 completed Melissa [address], [address], [facility] 01/23/2020 13:55:20 Past Encounters Encounter ID Performer Location Encounter Start Date Encounter Closed Date Diagnosis/Indication Diagnosis SNOMED-CT Code Diagnosis ICD10 Code Diagnosis Note [id number] Melissa DonnieKELVINSYLWIA [facility] [address] [facility], [place] [address] 10/16/2018 08:52:50 10/16/2018 09:30:22 Adult health examination 082602027 Z00.00 Active or passive immunization 809060555 Z23 Body mass index 25-29 - overweight 936541156 Z68.25 very slightly overweight has been going to gym has been eating healthy has gained some weight but working on it Celiac disease 747799043 K90.0 [id number] Angelica Baumann NP, S [facility] [address] [facility], [place] [address] 02/21/2019 08:54:05 02/21/2019 11:49:20 Anxiety 68142551 F41.9 Gastroesop hageal reflux disease 949791175 K21.9 stable Celiac disease 371982698 K90.0 gluten free [id number] Tomas Mccain DO [facility] [address] [facility], [place] [address] 11/14/2019 15:41:48 11/14/2019 16:08:07 Viral upper respiratory tract infection 693475163 J06.9 Ongoing for 7 days nonproduct aga cough, no fever If cough becomes productive or symptoms worsen will call [id number] Melissa Donnie [facility] [address] [facility], [place] [address] 01/23/2020 13:22:37 01/23/2020 14:14:18 Adult health examination 962428082 Z00.00 LMP 6 days ago, still heavy flow, was on iud, removed last year, first menses since iud removal sees primer boxer annually sees derm annually sees gi annually, has cscope every 5 years due to polyp Active or passive immunization 965031275 Z23 Abnormal weight gain 161 788296 R63.5 Joint swelling 040068440 M25.40 Body mass index 25-29 - overweight 983922310 Z68.25 very slightly overweight has been going to gym has been eating healthy [id number] Tomas Mccain [facility] Medicine [address] [facility], [place] [address] 06/20/2021 09:52:54 06/20/2021 12:38:18 Active or passive immunization 114873434 Z23 utd Adult heal th examination 900648072 Z00.00 [id number] Tomas Mccain [facility] Internal Medicine [address] [facility], [place] [address] 10/23/2022 13:21:37 10/23/2022 15:26:00 Active or passive immunization 027131032 Z23 utd Adult heal th examination 158618100 Z00.00 [id number] Tomas Mccain [facility] [address] [facility], [place] [address] 07/17/2023 08:38:52 07/18/2023 09:57:53 Gastroesophageal reflux disease 142830158 K21.9 stable Celiac disease 667708919 K90.0 having some breakthrou gh diarrhea Snoring 23532432 R06.83 [id number] OZZY HARRELL [facility] Medicine [address] [place] [address],[place] [address] 01/28/2024 09:40:33 01/28/2024 10:20:32 Adult health examination 189879926 Z00.00 BP is fineBW is excellent [id number] OZZY HARRELL [facility] Medicine [address] [facility], [place] [address] 06/17/2024 14:24:27 06/20/2024 10:45:44 Depression screening 875320139 Z13.31 negative Intolerant of heat 17859 007 R20.8 will set up with lab work to check levels of everything Muscle pain 88127437 M79 .10 will set up with lab work for several issues, possibly related Dizziness 449415729 R42 fu after lab work Tremor 34427132 G25.2 nonspecifi c shakiness of hands [id number] OZZY HARRELL [facility] Medicine [address] [facility],[place] [address] 06/25/2024 14:01:39 06/25/2024 15:55:55 Hyperthyroidism 23058770 E05.80 will fu with endocrinol ogy Health Concerns Section Related Observation LastModified by Organization Detai ls LastModified Time None Recorded Concern Status LastModified by Organization Details LastModified Time None Recorded Advance Directives Directive None Recorded Payers Encounter Date Sequence Insurance Name Policy Number Policy Lennon Covered Member ID Lennon Member ID Guarantor Name 10/23/2022 1 [employer] [id number] Shereen A Waimanalo [id number] Shereen A Waimanalo 07/17/2023 1 [employer] [id number] Shereen A Waimanalo [id number] Shereen A Waimanalo 01/28/2024 1 [employer] [id number] Shereen A Waimanalo [id number] Shereen A W[place]analo 06/17/2024 1 [place] [id number] Harjit A Waimanalo [id number] Shereen A Waimanalo 06/25/2024 1 [place] [id number] Harjit A Issa [id number] Shereen A Waimanalo Notes Date Note Type Note Provider Name and Address Organization Details Recorded Time 2 text/html Annual WellnessReported bypatient.Diet and Nutrition:healthy diet Fracture Risk:no history of fractures; no recent explained fracture; no sudden unexplained fractures; no previous musculoskeletal injuries Physical Activity:exercises on a regular basis; recent increase in physical activity; good physical condition Additional Lifestyle Factors:no tobacco use; no alcohol intake; stopped drinking alcohol Depression Risk:never feels sad, empty, or tearful; no loss of interest in activities; no significant changes in weight; no sleep disturbances or insomnia; no agitation; no loss of energy; no feelings of worthlessness or guilt; no thoughts of suicide; no history of depression; no history of mood disorders Hearing:no loss of hearing Vision:no vision problems here for cpe annualtx in [place] for uti and required second abx Tomas Mccain DO [address] [facility], [place], [address], [facility] 10/23/2022 14:05:16 3 text/html patient is evaluated via tele/video assessment per patient consentduring current pandemic discussed [place] has had episodes of diarrhea and has had some hx of gluten and is usually carefulstates she is so tiredin FLA she has fatty liveras dx by cholesterol Tomas Mccain DO [address] [place], [address], [facility] 07/17/2023 21:55:04 4 text/html Annual WellnessReported bypatient.Diet and Nutrition:healthy diet; discussed vitamin and supplement use; discussed portion control; discussed maintaining calcium balance; discussed diet improvement Fracture Risk:no history of fractures; no recent explained fracture; no sudden unexplained fractures; no previous musculoskeletal injuries Physical Activity:exercises on a regular basis; recent increase in physical activity; good physical condition Additional Lifestyle Factors:no tobacco use; drinks alcohol (mild-moderate) Depression Risk:never feels sad, empty, or tearful; no loss of interest in activities; no significant changes in weight; no sleep disturbances or insomnia; no agitation; no loss of energy; no feelings of worthlessness or guilt; no thoughts of suicide; no history of depression; no history of mood disorders Hearing:no loss of hearing Vision:no vision problemsNotes:last dentist appt was within the year, goes every 6 mos saw derm already OZZY HARRELL [address] [place], [address], [facility] 01/28/2024 10:05:57 4 text/html c/o feeling off the patient is having symptoms of feeling really hot, sweaty, then very coldthe patient is getting dizzy, faint otherwise resolves within a few minutes feeling tired, offthe patient reports that she does have the start of macular degenerationthe patient reports having intermittent constipation vs diarrhea the patient has lost weight, is actively working out and eating as well no urinary symptomsno blood in the stool the patient has been in menopause for several years shaking of her hands, tremors which are new ?thyroid, vit def vs autoimmune problem, tick illness, diabetes? OZZY HARRELL [address] [place], [address], [facility] 06/17/2024 15:16:32 4 text/html ER f/u the patient reports that she is doing a bit better after starting on the medication methimazole the patient reports that she is still having the hot flashes and tachycardia; tremors have stopped feels a bit betterneeds to be monitored on the medication, waiting on US report to come back r/o any other triggers for the acute onset hyperthryoidismher mom does have hypothyroidism, no other known relative referral placed for endocrine for a fu evaluation may need to have it removed or irradiated depending OZZY HARRELL [address] [place], [address], [facility] 06/25/2024 14:31:22 OBGyn Episode No OBEpisode recorded.
--- OUTSIDE RECORDS SUMMARY | 2025-02-05 08:06 | XMS_ITS | Clinical Summary ---
Author Organization [facility] Address [address] [place] [address] Care Team Providers Care Extrusion Press Supervisor Name Role Phone System, Provider Not In Primary Care Provider Un available Social History Tobacco Use Types Packs/Day Years Used Date Smoking Tobacco: Never Assessed Comments Unknown Sex and Gender Information Value Date Recorded Sex Assigned at Not on file Legal Sex Female 12:40 AM EDT Gender Identity Not on file Sexual Orientation Not on file Last Filed Vital Signs Vital Sign Reading Time Taken Comments Blood Pressure 132/90 12/20/2021 2:49 PM EST Pulse 60 12/20/2021 2:49 PM EST Temperature - - Respiratory Rate 18 12/20/2021 2:49 PM EST Oxygen Saturation - - Inhaled Oxygen Concentration - - Weight 63.4 kg (139 lb 12.4 oz) 12/20/2021 7:15 AM EST Height - - Body Mass Index - - Plan of Treatment Not on file Care Teams Extrusion Press Supervisor Relationship Specialty Start Date End Date System, Provider Not In PCP - General 03/07/22
--- OUTSIDE RECORDS SUMMARY | 2025-02-05 08:07 | XMS_ITS | Patient Health Record ---
Author Organization [facility] Address [address] [place] [address] Care Team Providers Care Billiard Player Name Role Phone Tomas Mccain Primary Care Provider Sagar Granado [phone] Allergies Allergen (clinical drug ingredient) Drug/Non Drug Allergy documented on EMR Reaction Allergy Type Onset Date Status apple allergenic extract Apple (Diagnostic) Unknown Drug Allergy Active Gluten gluten (uncoded) Unknown Allergy Act aga Reason For Referral No Information Medications Medication SIG (Take, Route, Frequency, Duration) Notes Start Date End Date Status methIMAzole 10 MG 1 tablet Orally Once a day for 30 days Active Multi Vitamin/Minerals - as directed Orally QD Active Immunizations Vaccine Route Administration Date Status Comme nts Influenza Unknown 09/17/2018 Administered Social History Tobacco Use: Social History Observation Description Date Details (start date - stop date) Never Smoker NA - NA Tobacco Use/Smoking Question Answer Notes Patient is a nonsmoker Alcohol Screen Question Answer Notes Did you have a drink contain ing alcohol in the past year? Yes How often did you have a dri nk containing alcohol in the past year? 2 to 4 times a month (2 points) How many drinks did you have on a typical day when you were drinking in the past year? 1 or 2 drinks (0 point) How often did you have 6 or more drinks on one occasion in the past year? Never (0 point) Points 2 Interpretation Negative Section Notes: Nonsmoker; no sig alcohol Nonsmoker; no sig alcohol Problems Problem Type SNOMED Code ICD Code Onset Dates Problem Status W/U Status Risk Notes Problem 996782053 Encounter for screening for malignant neoplasm of colon (Z12.11) Active confirmed Problem History of polyp of colon (situation) (010145054) Personal history of colonic polyps (Z86.010) Active confirmed Problem 635235058 Celiac disease (K90.0) Active confirmed Problem 50122279 Blood in stool (K92.1) Active confirmed Problem Adenomatous polyp of colon (429726999) Adenomatous colon polyp (D12.6) Active confirmed Problem 45194927 Rectal bleed (K62.5) Active confirmed Problem 899982570702786 Bloody stool (K92.1) Active confirmed Vital Signs Blood pressure diastolic 11 mm Hg 02/03/2025 Height 63 in 02/03/2025 Blood pressure systolic 111 mm Hg 02/03/2025 Weight 140 lbs 02/03/2025 BMI 24.8 kg/m2 02/03/2025 Procedures Procedure Date Ordered Date Performed Result Body Sit e COLONOSCOPY 02/03/2025 N/A Encounters Encounter Location Date Provider Diagnosis [facility] [address] [place] [address] 02/03/2025 Sagar Jeffrey Encounter for screening for malignant neoplasm of colon Z12.11 ; Adenomatous colon polyp D12.6 ; Personal history of colonic polyps Z86.010 and Celiac disease K90.0 [facility] [address] [place] [phone] 08/11/2024 Sagar Jeffrey [facility] [address] [place] [address] 12/24/2024 Sagar Jeffrey Assessments Encounter Date Diagnosis (ICD Code) Assessment Notes Treatment Notes Treatment Clinical Notes Section Notes 02/03/2025 Encounter for screening for malignant neoplasm of colon (ICD-10 - Z12.11) .Overall, Tennille appears quite well. Given her personal history of a tubular adenoma removed over 5 years ago, I did recommend a follow-up colonoscopy for further screening purposes. We did review the rationale for this in regard to colorectal cancer prevention. Full consent has been taken for this, including risks of bleeding and perforation. The procedure will be done with monitored anesthesia care. We did review her underlying history of celiac disease and this appears to be quite stable on her current gluten-free diet. I do not think she needs any particular studies done at this time since she is otherwise asymptomatic. Tennille was comfortable with this plan. Thank you again for allowing me to participate in Tennille's care. I shall continue to keep you advised of her progress. 02/03/2025 Adenomatous colon polyp (ICD-10 - D12.6) .Overall, Tennille appears quite well. Given her personal history of a tubular adenoma removed over 5 years ago, I did recommend a follow-up colonoscopy for further screening purposes. We did review the rationale for this in regard to colorectal cancer prevention. Full consent has been taken for this, including risks of bleeding and perforation. The procedure will be done with monitored anesthesia care. We did review her underlying history of celiac disease and this appears to be quite stable on her current gluten-free diet. I do not think she needs any particular studies done at this time since she is otherwise asymptomatic. Tennille was comfortable with this plan. Thank you again for allowing me to participate in Tennille's care. I shall continue to keep you advised of her progress. 02/03/2025 Personal history of colonic polyps (ICD-10 - Z86.010) .Overall, Tennille appears quite well. Given her personal history of a tubular adenoma removed over 5 years ago, I did recommend a follow-up colonoscopy for further screening purposes. We did review the rationale for this in regard to colorectal cancer prevention. Full consent has been taken for this, including risks of bleeding and perforation. The procedure will be done with monitored anesthesia care. We did review her underlying history of celiac disease and this appears to be quite stable on her current gluten-free diet. I do not think she needs any particular studies done at this time since she is otherwise asymptomatic. Tennille was comfortable with this plan. Thank you again for allowing me to participate in Tennille's care. I shall continue to keep you advised of her progress. 02/03/2025 Celiac disease (ICD-10 - K90.0) .Overall, Tennille appears quite well. Given her personal history of a tubular adenoma removed over 5 years ago, I did recommend a follow-up colonoscopy for further screening purposes. We did review the rationale for this in regard to colorectal cancer prevention. Full consent has been taken for this, including risks of bleeding and perforation. The procedure will be done with monitored anesthesia care. We did review her underlying history of celiac disease and this appears to be quite stable on her current gluten-free diet. I do not think she needs any particular studies done at this time since she is otherwise asymptomatic. Tennille was comfortable with this plan. Thank you again for allowing me to participate in Tennille's care. I shall continue to keep you advised of her progress. Plan Of Treatment Pending Test Test Name Order Date COLONOSCOPY 02/03/2025 LIVER PROFILE 07/08/2014 AMYLASE 07/08/2014 LIPASE 07/08/2014 CBC w DIFF 07/08/2014 CELIAC PANEL #10 07/08/2014 Future Test Test Name Order Date COLONOSCOPY 12/18/2018 Next Appt Details Provider Name:Sagar Nick Jeffrey , 04/27/2025 12:30:00 PM, [address] [place] [address] , [place], [place], [phone], Insurance Providers Payer Name Payer Address Payer Phone Subscriber Number Group Number Insured Name Patient Relationship to Insured Coverage Start Date Coverage End Date [facility] [address] [place] [address] [id number] CALEB MCCORMACK Self - patient is the insured Medical (General) History Medical History History ICD Code Denies VA,DM,CVA,Lung disease,renal dise ase Celiac disease diagnosed in [address] Armijo Negative colonoscopy in 2010 other than the finding of internal and external hemorrhoids Graves disease 06/2024 Screening colonoscopy in 2018 with remov al of a small tubular adenoma Surgical History Surgery Date(Month/Year) Eyelid lift Abdominoplasty Breast reconstruction
--- OUTSIDE RECORDS SUMMARY | 2025-02-05 08:07 | XMS_ITS ---
Author Organization [facility] Address [address] [place] [address] Care Team Providers Care Loftsman Name Role Phone Tomas Mccain Primary Care Provider Sagar Granado [phone] Allergies Allergen (clinical drug ingredient) Drug/Non Drug Allergy documented on EMR Reaction Allergy Type Onset Date Status apple allergenic extract Apple (Diagnostic) Unknown Drug Allergy Active Gluten gluten (uncoded) Unknown Allergy Act aga REASON FOR VISIT Patient presents today for a recall colonoscopy Medications Medication SIG (Take, Route, Frequency, Duration) Notes Start Date End Date Status methIMAzole 10 MG 1 tablet Orally Once a day for 30 days Active Multi Vitamin/Minerals - as directed Orally QD Active Social History Tobacco Use: Social History Observation [...] Negative Section Notes: Nonsmoker; no sig alcohol Problems Problem Type SNOMED Code ICD Code Onset Dates Problem Status W/U Status Risk Notes Problem History of polyp of colon (situation) (034481409) Personal history of colonic polyps (Z86.010) Active confirmed Problem Adenomatous polyp of colon (028564218) Adenomatous colon polyp (D12.6) Active confirmed Vital Signs Blood pressure systolic 111 mm Hg 02/04/20 25 Blood pressure diastolic 11 mm Hg 025 Height 63 in 02/03/2025 Weight 140 lbs 02/03/2025 BMI 24.8 kg/m2 02/03/2025 Procedures Procedure Date Ordered Date Performed Result Body Sit e COLONOSCOPY 02/03/2025 N/A Encounters Encounter Location Date Provider Diagnosis [facility] [address] [place] [address] 02/03/2025 Sagar Jeffrey Encounter for screening for malignant neoplasm of colon Z12.11 ; Adenomatous colon polyp D12.6 ; Personal history of colonic polyps Z86.010 and Celiac disease K90.0 Assessments Encounter Date Diagnosis (ICD Code) Assessment [...] Test Test Name Order Date COLONOSCOPY 02/03/2025 Next Appt Details Provider Name:Sagar Jeffrey , 04/27/2025 12:30:00 PM, [address] [place] [address] , [place], [place], [phone], Progress Notes * CALEB MCCORMACKDOB:[birth year] (54 yo F)Acc No.[id number]:02/03/2025 Progress Notes Patient:?KSENIA CALEB Provider:?Sagar Jeffrey MD :1970???Age:54 Y???Sex:Female D ate:02/03/2025 Address:[address] [place] [address] [place], [place], [phone] Pcp:Tomas Mccain Subjective: * Chief Complaints: * ???1. Patient presents today for a recall colonoscopy. * HPI: ???incontinence:? I saw Tennille in the office today for evaluation of her personal history of a tubular adenoma of the colon, need for colorectal cancer screening, and her underlying history of celiac disease. I last saw Tennille in 2019, at which time she underwent a screening colonoscopy with removal of a small tubular adenoma. She reports that she presently feels well. However, she did develop Graves' disease with hyperthyroidism last year which is now finally under control with methimazole under the guidance of her manager pharmacy. During the time when she was symptomatic she was having multiple symptoms including diarrhea, weight loss, shortness of breath, and palpitations. She reports that presently although symptoms have resolved. She does remain on her gluten-free diet and is doing well in that regard. She enjoys a good appetite and denies any significant heartburn or dysphagia. Her bowel movements are presently regular and without any signs of bleeding. She denies abdominal pain, signs of jaundice, nor any further weight loss. There is no family history of colorectal cancer but she does have a family history of celiac disease. * Medical History:?Denies PA,D M,CVA,Lung disease,renal disease, Celiac disease diagnosed in [address] Armijo, Negative colonoscopy in 2010 other than the finding of internal and external hemorrhoids, Graves disease 06/2024, Screening colonoscopy in 2018 with removal of a small tubular adenoma. * Surgical History:?Breast rec onstruction , Abdominoplasty , Eyelid lift . * Family History:?Father: elise [place], diagnosed with Colon polyps, HTN (hypertension).?Mother: alive, diagnosed with Diabetes.? Daughter and other relatives on maternal side with celiac disease No colorectal cancer. * Social History:?Tobacco Use:?Tobacco Use/Smoking?Patient is a?nonsmoker.?Drugs/Alcohol:?Alcohol Screen?Did you have a drink containing alcohol in the past year??Yes,?How often did you have a drink containing alcohol in the past year??2 to 4 times a month (2 points),?How many drinks did you have on a typical day when you were drinking in the past year??1 or 2 drinks (0 point),?How often did you have 6 or more drinks on one occasion in the past year??Never (0 point),?Points?2,?Interpretation?Negative.?Miscellaneous:?Marital status: . 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 ???Nonsmoker; no sig alcohol. * Medications:?Taking Multi Vi tamin/Minerals - Tablet as directed Orally QD , Taking methIMAzole 10 MG Tablet 1 tablet Orally Once a day , Discontinued OsmoPrep 1.102-0.398 GM Tablet 20 pills the evening before and 12 pills on the morning of the colonoscopy Orally QD , Medication List reviewed and reconciled with the patient * Allergies:?gluten, Apple (Di agnostic). Objective: * Vitals:?Wt: 140 lbs, Ht: 63 in, BMI:24.8Index, BP: 111/11 mm Hg, Wt-k.5. Assessment: * Assessment: 1.?Encounter for screening f or malignant neoplasm of colon - Z12.11 (Primary)???2.?Adenomatous colon polyp - D12.6???3.?Personal history of colonic polyps - Z86.010???4.?Celiac disease - K90.0??? .Overall, Tennille appears quite well. Given her [...] to keep you advised of her progress. Plan: * Treatment: 2.?Adenomatous colon polyp?Procedure: COLONOSCOPY* with MACsched for 04/27/25 at 12:30 pmmiralax 3.?Personal history of colonic polyps?Procedure: COLONOSCOPY* with MACsched for 04/27/25 at 12:30 pmmiralax * Procedure Codes:?77217 DIAGN OSTIC COLONOSCOPY * * The named appointment provid er may or may not be the originator of this progress note, and it is not deemed complete until electronically signed by the appointment provider. Sign off status: Pending * Provider:?Sagar Jeffrey MD Date:? 025 Generated for Yuan mckeon/Kirk/Jiaitting on:?02/05/2025 08:06 AM EDT
--- OUTSIDE RECORDS SUMMARY | 2025-02-05 08:07 | XMS_ITS ---
Author Organization [facility] Address [address] [place] [address] [place] [address] Care Team Providers Care Assembler Brazer Name Role Phone Tomas Mccain Primary Care Provider Sagar Granado [phone] Encounters Encounter Location Date Provider Diagnosis [facility] [address] [place], [place] [address] [address] 12/24/2024 Sagar Jeffrey Plan Of Treatment Next Appt Details Provider Name:Sagar Jeffrey , 04/27/2025 12:30:00 PM, [address] [place] [address] , [place], [place], [phone], Progress Notes * KSENIA CALEBDOB:[birth year] (54 yo F)Acc No.[id number]:12/24/2024 Patient:?KSENIA CALEB :1970???Age:54 Y???Sex:Female Address:[place] [address] * true * Date:? Generated for Printi ng/Kirk/eTransmitting on:?02/05/2025 08:06 AM EDT
== END 2025-02-05 08:39 | disposition home or self-care (01) ==
LOC: HO.ENCR 08:01
PROVIDERS: PCP Internal Medicine; Visit Provider Student in an Organized Health Care Education/Training Program
DX: E05.90 Thyrotoxicosis, unspecified without thyrotoxic crisis or storm (principal); E05.00 Thyrotoxicosis with diffuse goiter without thyrotoxic crisis or storm
CPT/HCPCS: 99214

== ENCOUNTER → 2025-02-05 08:01 | Outpatient (BNVA) | payer BC, SELFPAY | PROVIDERS: PCP Internal Medicine; Visit Provider Student in an Organized Health Care Education/Training Program ==

== ENCOUNTER 2025-03-28 08:06 | Outpatient (REF) | payer BC, SELFPAY ==
--- OUTSIDE RECORDS SUMMARY | 2025-03-28 08:08 | XMS_ITS | Patient Health Record ---
Author Organization [facility] Address [address] [place] [address] Care Team Providers Care Environmental Monitoring Technician Name Role Phone Tomas Mccain Primary Care Provider Sagar Granado [phone] Allergies Allergen (clinical drug ingredient) Drug/Non Drug [...] Problem Status W/U Status Risk Notes Problem 304965667 Encounter for screening for malignant neoplasm of colon (Z12.11) Active confirmed Problem History of polyp of colon (situation) (609808498) Personal history of colonic polyps (Z86.010) Active confirmed Problem 961151943 Celiac disease (K90.0) Active confirmed Problem 75210942 Blood in stool (K92.1) Active confirmed Problem Adenomatous polyp of colon (037089275) Adenomatous colon polyp (D12.6) Active confirmed Problem 03710541 Rectal bleed (K62.5) Active confirmed Problem 257031954332572 Bloody stool (K92.1) Active confirmed Vital Signs Blood pressure diastolic 11 mm Hg 02/03/2025 Height 63 in 02/03/2025 Blood pressure systolic 111 mm Hg 02/03/2025 Weight 140 lbs 02/03/2025 BMI 24.8 kg/m2 02/03/2025 Procedures Procedure Date Ordered Date Performed Result Body Sit e COLONOSCOPY 02/03/2025 N/A Encounters Encounter Location Date Provider Diagnosis [facility] [address] [place] [address] 02/03/2025 Sagar Jeffrey Encounter for screening for malignant neoplasm of colon Z12.11 ; Celiac disease K90.0 ; Adenomatous colon polyp D12.6 and Personal history of colonic polyps Z86.010 [facility] [address] [place] [address] 08/11/2024 Sagar Jeffrey [facility] [address] [place] [address] 12/24/2024 Sagar Jeffrey Assessments Encounter Date Diagnosis [...] Date COLONOSCOPY 12/18/2018 Next Appt Details Provider Name:Saagr Nick Jeffrey , 04/27/2025 12:30:00 PM, [address] [place] [address] , [place], [place], [phone], Insurance Providers Payer Name Payer Address Payer Phone Subscriber Number Group Number Insured Name Patient Relationship to Insured Coverage Start Date Coverage End Date [facility] [address] [place] [address] [phone] [id number] CALEB MCCORMACK Self - patient is the insured Medical (General) History Medical History History ICD Code Denies DC,DM,CVA,Lung disease,renal dise ase Celiac disease diagnosed in [address] Armijo Negative colonoscopy in 2010 other than the finding of internal and external hemorrhoids Graves' disease 06/2024 Screening colonoscopy in 2018 with remov al of a small tubular adenoma Surgical History Surgery Date(Month/Year) Eyelid lift Abdominoplasty Breast reconstruction
--- OUTSIDE RECORDS SUMMARY | 2025-03-28 08:08 | XMS_ITS ---
Author Organization [facility] Address [address] [place] [address] Care Team Providers Care Rock Singer Name Role Phone Tomas Mccain Primary Care Provider Sagar Granado [phone] REASON FOR VISIT colon recall Encounters Encounter Location Date Provider Diagnosis [facility] [address] [place] [address] 08/15/2024 Sagar Jeffrey Plan Of Treatment Next Appt Details Provider Name:Sagar Jeffrey , 04/27/2025 12:30:00 PM, [address] [place] [address] , [place], [place], [phone], Progress Notes * CALEB MCCORMACKDOB:[birth year] (54 yo F)Acc No.[id number]:08/15/2024 Progress Notes Patient:?CALEB MCCORMACK Provider:?Sagar Jeffrey MD :1970???Age:54 Y???Sex:Female D ate:08/15/2024 [address] [phone] Pcp:Tomas Mccain Subjective: * Chief Complaints: * [...] MD Date:? 024 Generated for Yuan mckeon/Kirk/Cris on:?03/28/2025 08:08 AM EDT
--- OUTSIDE RECORDS SUMMARY | 2025-03-28 08:08 | XMS_ITS | Clinical Summary ---
Author Organization [facility] Address [address] [place] [address] Care Team Providers Care Algologist Name Role Phone System, Provider Not In [...] of Treatment Not on file Care Teams Algologist Relationship Specialty Start Date End Date System, Provider Not In PCP - General 03/07/22
--- OUTSIDE RECORDS SUMMARY | 2025-03-28 08:08 | XMS_ITS | Data Portability ---
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) : MDM LOW MUST MEET 2 OF [...] TSH + free T4, serum 2023 024 [facility], [address] [place] [address], [place], [address], 06/27/2024 11:22:42 T3, free, serum or plasma 2023 024 [facility], [address] [place] [address], [address], 06/30/2024 11:35:15 thyroid peroxidas e (tpo) Ab, serum 2023 024 [facility], [address] [place] [address], [id number], 06/25/2024 14:27:46 TSH + free T4, serum 2023 024 [facility], [address] [place] [address], [address], 09/05/2024 11:37:33 T3, free, serum or plasma 2023 024 [facility], [address] [place] [address], [address], 09/08/2024 11:39:40 TSH + free T4, serum 2023 024 [facility], [address] [place] [address], [address], 10/30/2024 11:08:25 T3, free, serum or plasma 2023 024 [facility], [address] [place] [address], [address], 10/31/2024 11:08:49 TSH + free T4, serum 2023 024 [facility], [address] [place] [address], [address], 10/30/2024 11:08:25 T3, free, serum or plasma 2023 024 [facility], [address] [place] [address], [address], 10/31/2024 11:08:49 TSH + free T4, serum 2023 024 [facility], [address] [place] [address], [id number], 06/18/2024 11:25:22 T3, free, serum or plasma 2023 024 [facility], [address] [place] [address], [address], 06/17/2024 15:13:43 ESR (erythroc yte sedimenta tion rate), blood 2023 024 [facility], [address] [place] [address], [address], 06/17/2024 15:13:43 C reactive protein, QN, serum or plasma 2023 024 [facility], [address] [place] [address], [id number], 06/17/2024 15:13:43 iron + TIBC + ferritin, serum 2023 024 [facility], [address] [place] [address], [address], 06/17/2024 15:13:43 CBC w/ auto diff 2023 024 [facility], [address] [place] [address], [address], 06/17/2024 15:13:43 hemoglobi n A1c, QN, blood 2023 024 [facility], [address] [place] [address], [id number], 06/17/2024 15:13:42 CK (creatine kinase), total, serum 2023 024 [facility], [address] [place] [address], [address], 06/17/2024 15:13:42 magnesium , serum or plasma 2023 024 [facility], [address] [place] [address], [address], 06/17/2024 15:13:43 CMP, serum or plasma 2023 024 [facility], [address] [place] [address], [address], 06/18/2024 11:25:22 vitamin D, 25-hydrox y, total, serum 2023 024 [facility], [address] [place] [address], [address], 06/17/2024 15:13:43 vitamin B12 + folate, serum or blood 2023 024 [facility], [address] [place] [address], [address], 06/17/2024 15:13:43 PTH (parathyr oid hormone), intact + calcium, serum or plasma 2023 024 [facility], [address] [place] [address], [address], 06/17/2024 15:13:43 phosphoru s, serum or plasma 2023 024 [facility], [address] [place] [address], [address], 06/17/2024 15:13:42 TAINA + rf (antinucl ear antibodie s + rheumatoi d factor), quantitat aga, serum 2023 024 [facility], [address] [place] [address], [address], 06/23/2024 11:31:27 lyme disease igg+igm, serum, reflex western blot 2023 024 [facility], [address] [place] [address], [address], 06/20/2024 11:38:33 anaplasma phagocyto philum + ehrlichia chaffeens is IgG + IgM panel, serum 2023 [facility], [address] [place] [address], [address], 06/25/2024 11:52:05 CMP, serum or plasma 2021 [facility], [address] [place] [address], [address], 04/23/2023 11:22:41 CBC w/ auto diff 2021 [facility], [address] [place] [address], [address], 10/23/2022 14:10:37 lipid panel, blood 2021 [facility], [address] [place] [address], 18[address], 10/23/2022 14:10:37 vitamin D, 25-hydrox y, total, serum 2021 [facility], [address] [place] [address], 79[address], 10/23/2022 14:10:38 TSH, serum or plasma 2021 [facility], [address] [place] [address], [address], 10/23/2022 14:10:38 vitamin B12, serum 2021 [facility], [address] [place] [address], [address], 10/23/2022 14:10:37 Referral endocrino logy referral 2023 [facility] , [address] [place] [address] [place], [address], 06/30/2024 08:36:59 sleep medicine referral - severe [...] By Organization Details Last Modified Time 07/17/2023 [id number] gluten-free diet : care instructions Not available [...] bilat eral No observ ation record ed. [email or web address] [address] [place], [address], 04/10/2023 08:12:26 05/01/20 24 04/18/2024 sue CAMPOS digit al, bilat eral No observ ation record ed. [address] [place], [address], 05/02/2024 08:31:10 06/20/2006/20/2024 CT, angio gram, chest , w/wo contr ast No observ ation record ed. [facility] (Medical Records) [address] [place], [address], 06/20/2024 08:07:26 06/26/20 24 06/23/2024 US, thyro id No observ ation record ed. [email or web address] [facility] Central Scheduling [address] [place], [address], 06/27/2024 08:57:53 Result Notes None recorded. Problems Name Problem SNOMED Code Status Onset Date Resolution Date Notes Provider Name and Address Organization Details Recorded Time Celiac disease 293700739 Active 2017 since age 28 ( Dr. Jeffrey) Charlotte ureña [facility] 8 11:35:49 Disease of liver 177005520 Active 2017 Fatty liver Charlotte ureña [facility] 8 11:36:05 Irregula r intermen strual bleeding 26652327 Active 2017 controlle d Charlotte ureña [facility] 8 11:37:19 Solar degenera tion 23407846 Active 2017 sun damage- sees derm Charlottelokesh ureña [facility] 8 13:40:11 Cyst of ovary 39005028 Active 2017 Charlotte ureña [facility] 8 13:40:36 Hypermet ropia 41653998 Active 2017 Charlotte ureña [facility] 8 13:41:27 Gastroes ophageal reflux disease 902749631 Active 2017 Charlotte ureña [facility] 8 13:57:52 Divertic ulosis of colon 721056430 Active 2018 ANIYA Fields [address] [place], [address], [facility] 9 11:55:28 Hemorrho ids 97658053 Active [address], [address], [facility] 9 11:55:36 Polyp of colon 40853585 Active [address], [address], [facility] 9 11:55:42 Acute otitis media 1011337 Active 2021 OZZY HARRELL [address] [place] [address], [address], [facility] 2 09:21:13 Snoring 93728427 Active 2022 Tomas Mccain DO [address] [place] [address], [address], [facility] 3 17:10:43 Intolera nt of heat 14805105 Active 2023 OZZY HARRELL [address] [place] [address], [address], [facility] 4 15:09:56 Muscle pain 58306688 Active 2023 OZZY HARRELL [address] [place] [address], [address], [facility] 4 15:10:32 Dizzines s 871517788 Active 2023 OZZY HARRELL [address] [place] [address], [address], [facility] 4 15:10:59 Tremor 88478690 Active 2023 OZZY HARRELL [address] [place] [address], [address], [facility] 4 15:13:15 Hyperthy roidism 27703148 Active 2023 OZZY HARRELL [address] [place] [address], [address], [facility] 4 11:20:04 Silvia adkins 33149788 Active 2023 OZZY HARRELL [address] [place], [address], [facility] 4 14:44:14 Problem Notes None recorded. Procedures Surgical History Date Name Laterality Status Provider Name and Address Organization Details Recorded Time 10/06/20 19 Colonoscopy completed [facility] 10/15/2019 12:19:08 01/19/20 19 Most Recent Mammogram completed [facility] 10/14/2019 15:18:47 01/03/20 19 Colonoscopy completed [facility] 01/03/2019 12:19:04 11/19/19 13 Date of Last Pap Smear completed [facility] 10/14/2019 15:37:36 12/20/19 11 colonoscopy completed February ANIYA Fields [address] [place], [address], [facility] 10/16/2018 09:12:40 Imaging Results Imaging Date Name Status LastModified by Organiz ation Details LastModified Time 04/07/2023 MAMMO, screening, digital, bilateral completed carole [address] [place], [address], 04/10/2023 08:12:26 04/18/2024 MAMMO, screening, digital, bilateral completed jose [address] [place], [address], 05/02/2024 08:31:10 06/20/2024 CT, angiogram, chest, w/wo contrast completed [facility] (Medical Records) [address] [place] [address], [address], 06/20/2024 08:07:26 06/23/2024 [facility] [address] [place], [address], 06/27/2024 08:57:53 Procedure Notes None recorded. Medical Equipment None Reported. Allergies No known drug allergies Medications Name Sig Start Date Stop Date Status Note LastModified by Organization Details LastModified Time Hydromet 5 mg-1.5 mg/5 mL oral solution 01/22 completed Not Available Not Available Not [...] 5 mg-1.5 mg/5 mL (5 mL) oral solution Take 5 mL every 4 hours by [...] Updated DateTime 2 161.29 cm 25.5 kg/m2 57104.9 2 g 96 % 96 % 86 /min 112 mm[Hg] 70 mm[Hg] Skylar Saini [facility] 2 13:28:54 Date Recorded Body height Body mass index (BMI) Body weight Systolic blood pressure Diastolic blood pressure Provider Name and Address Organization Details Last Updated DateTime 01/28/2024 160.02 cm 25 kg/m2 26877.52 g 130 mm[Hg] 70 mm[Hg] Shelbie Ernandez [facility] 4 09:46:06 Date Recorded Body height Body mass index (BMI) Body weight Heart rate Oxygen saturation Oxygen saturation in Arterial blood by Pulse oximetry Systolic blood pressure Diastolic blood pressure Provider Name and Address Organization Details Last Updated DateTime 4 160.02 cm 24.4 kg/m2 68134.7 5 g 105 /min 97 % 97 % 110 mm[Hg] 70 mm[Hg] Jassi Venegas [facility] 4 14:46:06 Date Recorded Body height Body mass index (BMI) Body weight Heart rate Oxygen saturation Oxygen saturation in Arterial blood by Pulse oximetry Systolic blood pressure Diastolic blood pressure Provider Name and Address Organization Details Last Updated DateTime 4 160.02 cm 24.3 kg/m2 35488.1 5 g 108 /min 97 % 97 % 100 mm[Hg] 58 mm[Hg] Shelbie Ernandez [facility] 4 14:05:36 Social History Question Answer Notes LastModified by Organizat ion Details LastModified Time Tobacco Smoking Status Never Smoker Charlotte ureña [facility] 10/16/2018 09:00:13 What Was The Date Of Your Most Recent Tobacco Screening? 06/25/2024 [email or web address] Information not available 06/25/2024 Do You Or Have You Ever Used Any Other Forms Of Tobacco Or Nicotine? No [email or web address] Information not available 01/28/2024 Sex: Unknown Functional [...] rS-ChAdOx1, PF, 0.5 mL 1 completed Lissa Painting [facility] 06/20/2021 09:08:35 Td(adult) unspecified formulation 2 completed [facility] 10/15/2018 14:01:10 Influenza, split virus, quadrivalent, preservative 8 completed Melissa [address], [address], [facility] 10/16/2018 09:09:47 TST-PPD intradermal 1 completed Charlotte ureña [facility] 10/14/2019 15:17:56 Influenza, split virus, quadrivalent, preservative 9 completed Melissa [address], [address], [facility] 01/23/2020 13:55:20 Past Encounters Encounter ID Performer Location Encounter Start Date Encounter Closed Date Diagnosis/Indication Diagnosis SNOMED-CT Code Diagnosis ICD10 Code Diagnosis Note [id number] Tomas Mccain DO [facility] [address] [facility] [place] [address] 10/16/2018 08:52:50 10/16/2018 09:30:22 Adult health examination 483304207 Z00.00 Active or passive immunization 208244380 Z23 Body mass index 25-29 - overweight 672247651 Z68.25 very slightly overweight has been going to gym has been eating healthy has gained some weight but working on it Celiac disease 948800278 K90.0 [id number] Tomas Mccain [facility] Internal Medicine [address] [facility], [place] [address] 02/21/2019 08:54:05 02/21/2019 11:49:20 Anxiety 91680278 F41.9 Gastroesop hageal reflux disease 356334491 K21.9 stable Celiac disease 607775102 K90.0 gluten free [id number] Tomas Mccain DO [facility] Internal Medicine [address] [facility], [place] [address] 11/14/2019 15:41:48 11/14/2019 16:08:07 Viral upper respiratory tract infection 823058597 J06.9 Ongoing for 7 days nonproduct aga cough, no fever If cough becomes productive or symptoms worsen will call [id number] Tomas Mccain [facility] Internal Medicine [address] [place] [address], [place] [address] 01/23/2020 13:22:37 01/23/2020 14:14:18 Adult health examination 852683016 Z00.00 LMP 6 days ago, still heavy flow, was on iud, removed last year, first menses since iud removal sees dry cleaning manager annually sees derm annually sees gi annually, has cscope every 5 years due to polyp Active or passive immunization 898744218 Z23 Abnormal weight gain 161 253961 R63.5 Joint swelling 599189356 M25.40 Body mass index 25-29 - overweight 627023088 Z68.25 very slightly overweight has been going to gym has been eating healthy [id number] Tomas Mccain [facility] Internal Medicine [address] [facility],[place] [address] 06/20/2021 09:52:54 06/20/2021 12:38:18 Active or passive immunization 993246516 Z23 utd Adult heal th examination 803701705 Z00.00 [id number] Tomas Mccain [facility] Internal [facility] [address] [facility], [place] [address] 10/23/2022 13:21:37 10/23/2022 15:26:00 Active or passive immunization 601962032 Z23 utd Adult heal th examination 775247302 Z00.00 [id number] Tomas Mccain [facility] Internal [facility] [address] [facility], [place] [address] 07/17/2023 08:38:52 07/18/2023 09:57:53 Gastroesophageal reflux disease 231471365 K21.9 stable Celiac disease 066873346 K90.0 having some breakthrou gh diarrhea Snoring 25687598 R06.83 [id number] Tomas Mccain [facility] Internal [facility] [address] [facility], [address] [facility] [place] [address] 01/28/2024 09:40:33 01/28/2024 10:20:32 Adult health examination 452372070 Z00.00 BP is fineBW is excellent [id number] Tomas Mccain [facility] Internal [facility] [address] [facility], [place] [address] 06/17/2024 14:24:27 06/20/2024 10:45:44 Depression screening 248468043 Z13.31 negative Intolerant of heat 39746 007 R20.8 will set up with lab work to check levels of everything Muscle pain 35330697 M79 .10 will set up with lab work for several issues, possibly related Dizziness 095194518 R42 fu after lab work Tremor 15374301 G25.2 nonspecifi c shakiness of hands [id number] Tomas Mccain [facility] Internal Medicine [address] [facility],[place] [address] 06/25/2024 14:01:39 06/25/2024 15:55:55 Hyperthyroidism 72028121 E05.80 will fu with endocrinol ogy Health Concerns Section Related Observation LastModified by Organization Detai ls LastModified Time None Recorded Concern Status LastModified by Organization Details LastModified Time None Recorded Advance Directives Directive None Recorded Payers Encounter Date Sequence Insurance Name Policy Number Policy Lennon Covered Member ID Lennon Member ID Guarantor Name 10/23/2022 1 [facility] [id number] Shereen A Disney [id number] Shereen A Disney 07/17/2023 1 [facility] [id number] Shereen A Issa [id number] Shereen A Disney 01/28/2024 1 [facility] [id number] Shereen A Disney [id number] Shereen A Issa 06/17/2024 1 [place] [id number] Harjit A Issa [id number] Shereen A Issa 06/25/2024 1 [place] [id number] Harjit A Issa [id number] Shereen A Issa Notes Date Note Type Note Provider Name [...] required second abx Tomas Mccain DO [address] [facility], [place], [address], [facility] 10/23/2022 14:05:16 3 text/html patient is evaluated via tele/video assessment per patient consentduring current pandemic discussed [place] has had episodes of diarrhea and has had some hx of gluten and is usually carefulstates she is so tiredin FLA she has fatty liveras dx by cholesterol Tomas Mccain DO [address] [place], [address], [facility] 07/17/2023 21:55:04 4 text/html [...] mos saw derm already OZZY HARRELL [address] [place], [address], [facility] 01/28/2024 10:05:57 4 text/html [...] problem, tick illness, diabetes? OZZY HARRELL [address] [place], [address], [facility] 06/17/2024 15:16:32 4 text/html [...] removed or irradiated depending OZZY HARRELL [address] [place], [address], [facility] 06/25/2024 14:31:22 OBGyn Episode No OBEpisode recorded.
--- OUTSIDE RECORDS SUMMARY | 2025-03-28 08:08 | XMS_ITS ---
Author Organization [facility] Address [address] [place] [address] Care Team Providers Care Educational Sign Language Interpreter Name Role Phone Tomas Mccain Primary Care Provider Sgaar Granado [phone] Allergies Allergen (clinical drug ingredient) Drug/Non Drug [...] Problem Status W/U Status Risk Notes Problem Personal history of colonic polyps (Z86.010) Active confirmed Problem Adenomatous polyp of colon (810998099) Adenomatous colon polyp (D12.6) Active confirmed Vital Signs Blood pressure systolic 111 mm Hg 02/04/20 25 Blood pressure diastolic 11 mm Hg 025 Height 63 in 02/03/2025 Weight 140 lbs 02/03/2025 BMI 24.8 kg/m2 02/03/2025 Procedures Procedure Date Ordered Date Performed Result Body Sit e COLONOSCOPY 02/03/2025 N/A Encounters Encounter Location Date Provider Diagnosis [facility] [address] [place] [address] 02/03/2025 Sagar Jeffrey Encounter for screening for malignant neoplasm of colon Z12.11 ; Celiac disease K90.0 ; Adenomatous colon polyp D12.6 and Personal history of colonic polyps Z86.010 Assessments Encounter Date Diagnosis (ICD Code) Assessment [...] Order Date COLONOSCOPY 02/03/2025 Next Appt Details Follow Up: prn, Reason: Provider Name:Sagar Jeffrey , 04/27/2025 12:30:00 PM, [address] [place] [address] , [place], [place], [id number], Progress Notes * CALEB MCCORMACKDOB:[birth year] (54 yo F)Acc No.[id number]:02/03/2025 Progress Notes Patient:?CALEB MCCORMACK Provider:?Sagar Jeffrey MD :1970???Age:54 Y???Sex:Female D ate:02/03/2025 Address:[address] [place] [address], [place], [id number] Pcp:Tomas Mccain Subjective: * Chief Complaints: * ???Patient presents today fo r a recall colonoscopy * HPI: ???incontinence:? 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 During the time when she was symptomatic she was having multiple symptoms including diarrhea, weight loss, shortness of breath, and palpitations. She reports that presently all those symptoms have resolved. She does remain on [...] a family history of celiac disease. * ROS:?General/Constitutional:?Change in appetite?denies.?Chills?denies.?Fatigue?denies.?Ophthalmologic:?Comments?all negative.?ENT:?Comments?all negative.?Respiratory:?hemoptysis?denies.?Cough?denies.?Cardiovascular:?Chest pain?denies.?Orthopnea?denies.?Gastrointestinal:?Comments?See HPI for details.?Genitourinary:?Hematuria?denies.?Dysuria?denies.?Musculoskeletal:?Painful joints?denies.?Weakness?denies.?Skin:?Itching?denies.?Rash?denies.?Neurologic:?Headache?denies.?Seizures?denies.?Psychiatric:?Comments?all negative.? * Medical History:? * Surgical History:?Breast rec onstruction Abdominoplasty Eyelid lift * Hospitalization/Major Diagno stic Procedure:?No Hospitalization History. * Family History:?Father: elise [place], diagnosed with [...] comp. claims. ???Nonsmoker; no sig alcohol. * Medications:?TakingMulti Vit field/Minerals - Tablet as directed Orally QD methIMAzole 10 MG Tablet 1 tablet Orally Once a day Taking Multi Vitamin/Minerals - Tablet as directed Orally QD Taking methIMAzole 10 MG Tablet 1 tablet Orally Once a day DiscontinuedOsmoPrep 1.102-0.398 GM Tablet 20 pills the evening before and 12 pills on the morning of the colonoscopy Orally QD Medication List reviewed and reconciled with the patientDiscontinued OsmoPrep 1.102-0.398 GM Tablet 20 pills the evening before and 12 pills on the morning of the colonoscopy Orally QD Medication List reviewed and reconciled with the patient * Allergies:?glutenApple (Diag nostic)yes[Allergies Verified] Objective: * Vitals:?Wt: 140 lbs, Ht: 63 in, BMI:24.8Index, BP: 111/11 mm Hg, Wt-k.5. * Examination: ???General Examination: ?GENERAL APPEARANCE:?pleasant, well nourished, well developed, in no acute distress.?EYES:?sclera non-icteric.?ORAL CAVITY:?mucosa moist.?NECK/THYROID:?no cervical lymphadenopathy, neck supple.?SKIN:?nonjaundiced, no spider angiomata.?HEART:?S1, S2 normal.?LUNGS:?clear to auscultation bilaterally.?ABDOMEN:?normal bowel sounds, no guarding or rigidity, no guarding or rigidity, no masses palpable, soft, nontender, nondistended.?EXTREMITIES:?no edema.?NEUROLOGIC:?alert and oriented.? Assessment: * Assessment: 1.?Celiac disease - K90.0 (P rimary)???2.?Encounter for screening for malignant neoplasm of colon - Z12.11???3.?Adenomatous colon polyp - D12.6???4.?Personal history of colonic polyps - Z86.010??? .Overall, Tennille appears quite well. Given her [...] for 04/27/25 at 12:30 pmmiralax * Procedure Codes:?80200 DIAGN OSTIC [id number] COLORECTAL CA SCREEN DOC [id number] TOBACCO NON-NGYQM8319 BP SCR NOT PRFRM REC REASON [id number] RCMND FLW-UP 10 YRS DOCD * Follow Up:?prn * * Sign off status: Completed true * Provider:?Sagar Jeffrey MD Date:? 025 Generated for Printi ng/Famckaylag/eTransmitting on:?03/28/2025 08:08 AM EDT History and Physical Notes * Examination Category Sub-Category Detail Notes Category Not es General Examination GENERAL APPEARANCE: pleasant , well nourished, well developed, in no acute distress HEAD: EYES: sclera non-icteric EARS: NOSE: THROAT: NECK/THYROID: no cervical lymphade nopathy, neck supple HEART: S1, S2 normal CHEST: LUNGS: clear to auscultatio n bilaterally ABDOMEN: normal bowel sounds, no guarding or rigidity, no guarding or rigidity, no masses palpable, soft, nontender, nondistended NEUROLOGIC: alert and oriented SKIN: nonjaundiced, no spi soni angiomata EXTREMITIES: no edema PERIPHERAL PULSES: BACK: BREASTS: MUSCULOSKELETAL: MALE GENITOURINARY: LYMPH NODES: RECTAL EXAM: FEMALE GENITOURINARY: ORAL CAVITY: mucosa moist
--- OUTSIDE RECORDS SUMMARY | 2025-03-28 08:08 | XMS_ITS ---
Author Organization [facility] Address [address] [place] [address] [place] [address] Care Team Providers Care Bonsai Tender Name Role Phone Tomas Mccain Primary Care Provider Sagar Granado [phone] Encounters Encounter Location Date Provider Diagnosis [facility] [address] [place], [place] [address] [address] 12/24/2024 Sagar Jeffrey Plan Of Treatment Next Appt Details Provider Name:Sagar Jeffrey , 04/27/2025 12:30:00 PM, [address] [place] [address] , [place], [place], [phone], Progress Notes * KSENIA CALEBDOB:[birth year] (54 yo F)Acc No.[id number]:12/24/2024 Patient:?KSENIA CALEB :1970???Age:54 Y???Sex:Female Address:[place] [address] * true * Date:? Generated for Printi ng/Kirk/eTransmitting on:?03/28/2025 08:08 AM EDT
[2025-03-28 10:07] LABS: Free T4 (Free Thyroxine) 0.89 ng/dL (0.71-1.85); Thyroid Stimulating Hormone 2.79 uIU/mL (0.32-4.0)
== END 2025-03-28 08:07 | disposition home or self-care (01) ==
LOC: HO.LAB 08:06
PROVIDERS: PCP Internal Medicine; Visit Provider Student in an Organized Health Care Education/Training Program
DX: E05.00 Thyrotoxicosis with diffuse goiter without thyrotoxic crisis or storm (principal)
CPT/HCPCS: 36415; 84439; 84443

== ENCOUNTER 2025-04-24 07:24 | Outpatient (REF) | payer BC, SELFPAY ==
--- NOTE | ~2025-04-24 | MM_ITS ---
EXAMINATION: MM SCREENING DIGITAL BREAST TOMOSYNTHESIS, BILATERAL CLINICAL INFORMATION: Screening. Asymptomatic. COMPARISON: Mammography: Comparison is made with relevant avialable priors. TECHNIQUE: Digital mammography is performed in craniocaudal and mediolateral oblique views along with computer-aided detection (CAD). Digital breast tomosynthesis is performed in implant-displaced craniocaudal and implant-displaced mediolateral oblique views along with computer-aided detection (CAD). FINDINGS: There are scattered areas of fibroglandular density (ACR BI-RADS breast composition Category b). Bilateral retropectoral saline implants are stable appearing. There are no significant masses, abnormal calcifications, or other abnormalities. MM/MM tomosynthesis screen imp BI IMPRESSION: There are no significant changes from prior study. ASSESSMENT: BI-RADS BI-RADS 2 - Benign Findings RECOMMENDATION: Routine annual mammography screening. 1 year F/U This patient's information was entered into a reminder system with a target due date for their next mammogram. Electronically signed by: Michell Pizarro DO 04/28/2025 05:48 PM EDT
== END 2025-04-24 07:25 | disposition home or self-care (01) ==
LOC: HO.MAMMO 07:24
PROVIDERS: PCP Internal Medicine; Visit Provider Internal Medicine
DX: Z12.31 Encounter for screening mammogram for malignant neoplasm of breast (principal)
CPT/HCPCS: 77063; 77067

== ENCOUNTER → 2025-04-24 07:45 | Outpatient (BNV) | payer BC, SELFPAY | PROVIDERS: PCP Internal Medicine; Visit Provider Internal Medicine | DX: Z12.31 Encounter for screening mammogram for malignant neoplasm of breast (principal) | CPT/HCPCS: 77063; 77067 ==

== ENCOUNTER 2025-05-12 09:33 | Outpatient (REF) | payer BC, SELFPAY ==
--- OUTSIDE RECORDS SUMMARY | 2025-05-12 10:18 | XMS_ITS | Clinical Summary ---
Author Organization [facility] Address [address] [place] [address] Care Team Providers Care Terminal Block Assembler Name Role Phone System, Provider Not In [...] of Treatment Not on file Care Teams Terminal Block Assembler Relationship Specialty Start Date End Date System, Provider Not In PCP - General 03/07/22
[2025-05-12 12:53] LABS: MANUAL DIFF FLAG NO
[2025-05-12 13:11] LABS: Basophils Absolute Auto 0.1 X10*3/uL (0.0-0.2); Eosinophils Absolute Auto 0.1 X10*3/uL (0.0-0.4); Eosinophils Percent Auto 1.2 % (0-4); Hematocrit 40.8 % (37.0-47.0); Hemoglobin 13.9 g/dl (12.0-16.0); Imm Gran Abs Auto 0.02 X10*3/uL (0.00-0.03); Imm Gran Pct Auto 0.3 % (0.0-0.4); Lymphocytes Absolute Auto 2.1 X10*3/uL (1.2-4.9); Lymphocytes Percent Auto 35.2 % (20-40); Mean Corpuscular HGB Conc 34.1 g/dl (31.0-35.0); Mean Corpuscular Hemoglobin 30.5 pg (27.0-33.0); Mean Corpuscular Volume 89.7 fL (80.0-98.0); Mean Platelet Volume 9.4 fL (9.4-12.3); Monocytes Absolute Auto 0.5 X10*3/uL (0.1-1.2); Monocytes Percent Auto 8.2 % (2-11); Neutrophils Absolute Auto 3.3 x10*3/uL (2.0-8.3); Neutrophils Percent Auto 54.1 % (45-73); Platelet Count 257 X10*3/uL (160-400); Red Blood Count 4.55 X10*6/uL (4.20-5.50); Red Cell Distribution Width 11.7 % (11.0-16.0); White Blood Count 6.1 X10*3/uL (4.8-10.8)
[2025-05-12 13:18] LABS: Estimated Average Glucose 105 mg/dL; Hemoglobin A1c % 5.3 % (<6.0); Total Hemoglobin (HGBA1C) 3617.0002 umol/L
[2025-05-12 13:20] LABS: Alanine Aminotransferase 34 U/L (0-31); Albumin Level 4.5 g/dL (3.5-5.0); Alkaline Phosphatase 95 U/L (39-117); Anion Gap 12 (12-20); Aspartate Amino Transferase 29 U/L (5-31); Bilirubin Total 0.9 mg/dL (0.0-1.0); Blood Urea Nitrogen 15 mg/dL (9-16); Carbon Dioxide 27 mmol/L (22-29); Chloride 105 mmol/L (96-108); Cholesterol 243 mg/dL (<200); Estimated Glomerular Filt Rate > 60; Glucose Random 96 mg/dL (60-115); HDL Cholesterol 76 mg/dL (>40); LDL Cholesterol Calculated 135 mg/dL (<100); Potassium 3.8 mmol/L (3.3-5.1); Sodium 140 mmol/L (135-145); Total Protein 7.2 g/dL (6.5-8.0); Triglycerides 162 mg/dL (<150)
== END 2025-05-12 09:34 | disposition home or self-care (01) ==
LOC: HO.MANLDS 09:33
PROVIDERS: Visit Provider Physician Assistant
DX: Z00.00 Encounter for general adult medical examination without abnormal findings (principal); Z13.6 Encounter for screening for cardiovascular disorders; Z13.1 Encounter for screening for diabetes mellitus
CPT/HCPCS: 36415; 80053; 80061; 83036; 85025

== ENCOUNTER 2025-06-24 06:04 | Outpatient (REF) | payer BC, SELFPAY ==
--- OUTSIDE RECORDS SUMMARY | 2024-08-15 10:20 | XMS_ITS ---
Author Organization [facility] Address [address] [place] [address] Care Team Providers Care Photovoltaic Power Systems Engineer Name Role Phone Tomas Mccain Primary Care Provider Sagar Granado [phone] REASON FOR VISIT colon recall Encounters Encounter Location Date Provider Diagnosis [facility] [address] [place] [address] 08/15/2024 Sagar Jeffrey Plan Of Treatment Next Appt Details Provider Name:Sagar Jeffrey , 10/26/2025 07:30:00 AM, [address] [place] [address] , [place], [place], [phone], Progress Notes * CALEB MCCORMACKDOB:[birth year] (55 yo F)Acc No.[id number]:08/15/2024 Progress Notes Patient: CALEB ALFREDO Provider: Chester Jeffrey MD :1970 A ge:54 Y S ex:Female Date:08/15/2024 [address] [place] Pcp:Tomas Mccain Subjective: * Chief Complaints: * 1 . Colon recall. * Medical History: Objective: * Vitals: Assessment: Plan: * Treatment: * * The named appointment provid er may or may not be the originator of this progress note, and it is not deemed complete until electronically signed by the appointment provider. Sign off status: Pending * Provider: Chester Jeffrey MD Date: 0 08/15/2024 Generated for Yuan mckeon/Kirk/Cris on: 0 06/24/2025 06:06 AM MANNY
--- OUTSIDE RECORDS SUMMARY | 2025-06-24 06:07 | XMS_ITS | Clinical Summary ---
Author Organization [facility] Address [address] [address] Phone Care Team Providers Care Shot Lighter Name Role Phone Rachelkarlee Tomas Johnson DO Unavailable Nicolas Garcia MD Unavailable [phone] Onelia Corral MD Unavailable [phone] Dasia Cid NP Unavailable [phone] Tomas Mccain DO Primary Care Provider [phone] Tomas Mccain DO Unavailable Social History Tobacco Use Types Packs/Day Years Used Date Smoking Tobacco: Never Assessed Education Answer Date Recorded Are you interested in more education? Not on brett e 07/19/2023 Are you concerned about learning? Not on file 07/19/2023 No 07/19/2023 No 07/19/2023 Digital Access Answer Date Recorded No 07/19/2023 No 07/19/2023 Reliable internet access at home? Not on file 07/19/2023 Device with a working camera? Not on file Comments Unknown Sex and Gender Information Value Date Recorded Sex Assigned at Not on file Legal Sex Female 9:37 PM EDT Gender Identity Not on file Sexual Orientation Not on file Last Filed Vital Signs Vital Sign Reading Time Taken Comments Blood Pressure 98/60 01/10/2013 9:18 AM EST Pulse - - Temperature - - Respiratory Rate - - Oxygen Saturation - - Inhaled Oxygen Concentration - - Weight 58.1 kg (128 lb) 01/10/2013 9:18 AM EST Height 160 cm (5' 3 ) 01/10/2013 9:18 AM EST Body Mass Index 22.67 01/10/2013 9:18 AM EST Plan of Treatment Health Maintenance Due Date Last Done Comments Adult Td,Tdap Booster 1970 LIPID PANEL 1968 DEPRESSION SCREENING 1980 SMOKING Hx and SMOKELESS TOB ACCO SCREENING 1981 HEPATITIS C SCREENING 1986 HIV ONE-TIME SCREENING (18-6 5 YEARS) 1986 PAP SMEAR 1989 MAMMOGRAM 2008 COLOGUARD 2013 COLONOSCOPY 2013 COLORECTAL CANCER SCREENING 2013 FIT TEST 2013 FOBT 2013 SIGMOIDOSCOPY 2013 VIRTUAL COLONOSCOPY 2013 PNEUMOCOCCAL VACCINES (50+ y ears) (1 of 1 - PCV) 2018 ZOSTER VACCINES (1 of 2) 2018 COVID-19 VACCINE (2023-2 5 season) 2024 HEPATITIS A VACCINES Aged Out No long er eligible based on patient's age to complete this topic HIB VACCINES Aged Out No longer eligi ble based on patient's age to complete this topic MENINGOCOCCAL VACCINES (ACWY) Aged Out No longer eligible based on patient's age to complete this topic MENINGOCOCCAL VACCINES (B) Aged Out N o longer eligible based on patient's age to complete this topic Medical Devices Not on file Insurance [facility] [place] [id number] [facility] PPO [facility]PO [facility] PPO EPO [facility] PPO EPO Member Subscriber Plan / Payer (Ef fective 2024-) Name:Shereen Parsons Relation to Subscriber:Spouse Name:ISSA,FROILAN Date of :1900 (Home) Address: [address] [place] [address] Payer ID:[id number] (NAIC) Type:PPO Address: [address] [place], [place] [address] PPO EPO Member Subscriber Plan / Payer (Ef fective 2024-Present) Name:Shereen Parsons Relation to Subscriber:Spouse Name:FROILAN PARSONS Date of :1900 (Home) Address: [address] [place] [address] Payer ID:[id number] (NA) Type:PPO Address: [address] [place], [place] [address] PPO EPO Member Subscriber Plan / Payer ( fective 2024-Present) Name:Shereen Parsons Relation to Subscriber:Spouse Name:ISSAREYMUNDOFROILAN Date of :1900 (Home) Address: [address] [place] [address] Payer ID:[id number] (NA) Type:PPO Address: [address] [place], [place] Care Teams Shot Lighter Relationship Specialty Start Date End Date Tomas Mccain DO juan PCP - General Internal Medicine 07/19/23 Tomas Mccain DO juan Historical LMR Provider 09/04/17 Nicolas Garcia MD [address] [address] Historical LMR Provider 09/04/17 Onelia Corral MD [address] [place] [address] Historical LMR Provider 09/04/17 Dasia Cid NP [address] [place] [address] Historical LMR Provider 09/04/17 Tomas Mccain DO [address] [place] [phone] juan Insurance Assigned Provider 09/27/24 Additional Source Comments The information contained in this document represents components of the legal health record. It is not the complete legal health record.[facility]
[2025-06-24 08:29] LABS: Free T4 (Free Thyroxine) 0.96 ng/dL (0.71-1.85); Thyroid Stimulating Hormone 2.76 uIU/mL (0.32-4.0)
== END 2025-06-24 06:05 | disposition home or self-care (01) ==
LOC: HO.LAB 06:04
PROVIDERS: PCP Internal Medicine; Visit Provider Student in an Organized Health Care Education/Training Program
DX: E05.00 Thyrotoxicosis with diffuse goiter without thyrotoxic crisis or storm (principal)
CPT/HCPCS: 36415; 84439; 84443

== ENCOUNTER 2025-07-21 07:28 | Outpatient (AMB) | payer BC, SELFPAY ==
--- OUTSIDE RECORDS SUMMARY | 2024-08-15 10:20 | XMS_ITS ---
Author Organization [facility] Address [address] [place] [address] Care Team Providers Care Coil Placer Name Role Phone Tomas Mccain Primary Care Provider Sagar Granado [phone] REASON FOR VISIT colon recall Encounters Encounter Location Date Provider Diagnosis [facility] [address] [place] [address] 08/15/2024 Sagar Jeffrey Plan Of Treatment Next Appt Details Provider Name:Sagar Jeffrey , 10/26/2025 07:30:00 AM, [address] [place] [address] , [place], [place], [phone], Progress Notes * CALEB MCCORMACKDOB:[birth year] (55 yo F)Acc No.[id number]:08/15/2024 Progress Notes Patient: CALEB ALFREDO Provider: Chester Jeffrey MD :1970 A ge:54 Y S ex:Female Date:08/15/2024 [address] [id number] Pcp:Tomas Mccain Subjective: * Chief Complaints: * [...] 08/15/2024 Generated for Yuan mckeon/Kirk/Cris on: 0 07/21/2025 07:32 AM TATOT
--- OUTSIDE RECORDS SUMMARY | 2025-07-21 07:32 | XMS_ITS | Clinical Summary ---
Author Organization [facility] Address [address] [place] [address] Care Team Providers Care Physical Education Professor Name Role Phone System, Provider Not In [...] of Treatment Not on file Care Teams Physical Education Professor Relationship Specialty Start Date End Date System, Provider Not In PCP - General 03/07/22
--- OUTSIDE RECORDS SUMMARY | 2025-07-21 07:33 | XMS_ITS | Clinical Summary ---
Author Organization [facility] Address [address] [address] Phone Care Team Providers Care Resaw Machine Operator Name Role Phone Rachelkarlee Tomas Johnson DO Unavailable Nicolas Garcia MD Unavailable [phone] Onelia Corral MD Unavailable [phone] Dasia Cid NP Unavailable [phone] Tomas Mccain DO Primary Care Provider [phone] Tomas Mccain DO Unavailable Social History Tobacco [...] 2018 ZOSTER VACCINES (1 of 2) 2018 INFLUENZA VACCINE (#1) 2025 COVID-19 VACCINE (1 - 2023-2 5 season) 2025 HEPATITIS A VACCINES Aged Out No long [...] topic Medical Devices Not on file [facility] PPO EPO [facility] PPO EPO [facility] PPO EPO Member Subscriber Plan / Payer (Ef fective 2024-Present) Name:Shereen Parsons Relation to Subscriber:Spouse Name:FROILAN PARSONS Date of :1900 (Home) Address: [address] [place] [address] Payer ID:[id number] (NAIC) Type:PPO Address: [address] [place], [place] [facility] PPO EPO Care Teams Resaw Machine Operator Relationship Specialty Start Date End Date Tomas Mccain DO juan PCP - General Internal Medicine 07/19/23 Tomas Mccain DO juan Historical LMR Provider 09/04/17 Nicolas Garcia MD [address] [place] [address] Historical LMR Provider 09/04/17 Onelia Corral MD [address] [place] [phone] Historical LMR Provider 09/04/17 Dasia Cid NP [address] [place] [address] Historical LMR Provider 09/04/17 Tomas Mccain DO [address] [place] [address] juan Insurance Assigned Provider 09/27/24 Additional Source Comments The information contained in this document represents components of the legal health record. It is not the complete legal health record.[facility]
--- OUTSIDE RECORDS SUMMARY | 2025-07-21 07:33 | XMS_ITS | Patient Health Record ---
Author Organization [facility] Address [address] [place] [address] Care Team Providers Care Jacket Changer Name Role Phone Tomas Mccain Primary Care Provider Sagar Granado [phone] Allergies Allergen (clinical drug ingredient) Drug/Non Drug [...] Problem Status W/U Status Risk Notes Problem 704421928 Encounter for screening for malignant neoplasm of colon (Z12.11) Active confirmed Problem History of polyp of colon (situation) (046573405) Personal history of colonic polyps (Z86.010) Active confirmed Problem 538650767 Celiac disease (K90.0) Active confirmed Problem 10450065 Blood in stool (K92.1) Active confirmed Problem Adenomatous polyp of colon (858020032) Adenomatous colon polyp (D12.6) Active confirmed Problem 40204152 Rectal bleed (K62.5) Active confirmed Problem 976500747074968 Bloody stool (K92.1) Active confirmed Vital Signs Blood pressure diastolic 11 mm Hg 02/03/2025 Height 63 in 02/03/2025 Blood pressure systolic 111 mm Hg 02/03/2025 Weight 140 lbs 02/03/2025 BMI 24.8 kg/m2 02/03/2025 Procedures Procedure Date Ordered Date Performed Result Body Sit e COLONOSCOPY 02/03/2025 N/A Encounters Encounter Location Date Provider Diagnosis [facility] [address] [place] [address] 02/03/2025 Sagar Jeffrey Encounter for screening for malignant neoplasm of colon Z12.11 ; Celiac disease K90.0 ; Adenomatous colon polyp D12.6 and Personal history of colonic polyps Z86.010 [facility] [address] [place] [address] 08/11/2024 Sagar Jeffrey [facility] [address] [place] [address] 12/24/2024 Sagar Jeffrey [facility] [address] [place] [address] 04/24/2025 Sagar Jeffrey Assessments Encounter Date Diagnosis (ICD [...] COLONOSCOPY 12/18/2018 Next Appt Details Provider Name:Sagar Jeffrey , 10/26/2025 07:30:00 AM, [address] [place] [address] , [place], [place], [id number], Insurance Providers Payer Name Payer Address Payer Phone Subscriber Number Group Number Insured Name Patient Relationship to Insured Coverage Start Date Coverage End Date [facility] [address] [place] [address] [id number] CALEB MCCORMACK Self - patient is the insured Medical (General) History Medical History History ICD Code Denies SC,DM,CVA,Lung disease,renal dise ase Celiac disease diagnosed in [address] Armijo Negative colonoscopy in 2010 other than the finding of internal and external hemorrhoids Graves' disease 06/2024 Screening colonoscopy in 2018 with remov al of a small tubular adenoma Surgical History Surgery Date(Month/Year) Eyelid lift Abdominoplasty Breast reconstruction
[2025-07-21 07:34] VITALS: BP 126/68; PULSE 63; O2SAT 98; BMI 26.0
--- NOTE | 2025-07-21 07:34 | A.OFFVIS_ITS ---
Vital Signs 07/21/25 07:34 Height 5 ft 3 in Weight 147 lb 0.773 oz BMI 26.0 BP 126/68 Blood Pressure Location Lt brachial Position Sitting Pulse 63 Pulse Source Pulse Oximeter Pulse Oximetry (%) 98 Oxygen Delivery Method Room Air Intake Visit Reasons: Hyperthyroidism Intake Note: Patient present today for Hyperthyroidism office visit. Senior Bioinformatics Scientist Required: No Accompanied by: Self / Same As Patient Allergies apple Allergy (Verified 07/21/25 07:40) Unknown gluten Allergy (Verified 07/21/25 07:40) Unknown wheat (WHEAT) Adverse Reaction (Intermediate, Verified 07/21/25 07:40) GI UPSET Medication List - Last Reconciled 07/21/25 by Laverne Gordillo MD methimazole 10 mg PO DAILY multivitamin 1 tab PO DAILY HPI Comments Details: 54 years old female with history of celiac disease coming in today for follow up of hyperthyroidism due to Grave's disease. HPI from prior visit In January/February 2024: started experienceing worsening hot flashes, increased sweating, voice was hoarse with sore throat Started noticing tremors in summer 2023, started having palpitations following that Decreased endurance Was diagnosed with hyperthyrodism June 192023 TSH <0.01 free t4 3.23 Symptoms were to the extent that she had to go to the ED and Started methimazole 5 mg daily june 19, 2024 saw me 07/01/24 Methimazole increased to 10 mg daily on that visit Labs from 07/28/24 showed TSH remaines suppressed but free t4 has normalized, TSI elevated at 280 confirmuing Graves disease 08/05/24 : increased methimazole to 15 mg daily with 10 mg in the morning and 5 mg in the evening labs from 10/29/2024 showed TSH still suppressed at 0.01, however free T4 has normalized to 0.95, total T3 also normal at 130. Interval history 02/05/2025 11/04/2024: Methimazole reduced to 10 mg daily 02/02/2025: TSH 2.69, free T4 0.87, total T3 92, all normal Tremors and palpitations resolved.. Working out regularly feels good Regular bowel movements. Postmenopausal No skin or hair chnages Gained 4 lbs since October 2024, back to normal weight for her No new vision chnages but has early signs of macular degeneration Interval history 07/21/2025 Continues on methimazole 5 mg daily 06/24/2025 TSH 2.76, free T4 0.96 Weight stable Denies palpitations, tremors, heat intolerance , regular bowel movement s Past medical Celiac Family history Mother: hypothyroidism Father: HTN Paternal grandmother: Stroke social history No smoking No drug use Alcohol use once or twice a week Physical exam General: sitting comfortably in no acute distress HEENT: normocephalic/atraumatic, moist oral mucosa Neck: supple, symmetrical, no thyromegaly , no dorsocervical or supraclavicular fat pads Cardiac: normal heart sounds Pulm: normal breath sounds B/L, no added breath sounds Abd: not distended, no tenderness Extremities: no edema, no signs of myxedema, fine tremors noted Neuro: AAO x3, Speech: normal, no facial droop, moving all 4 extremities Laboratory Tests 06/20/21 04/21/23 06/17/24 10:28 07:31 15:21 TSH 0.84 1.29 < 0.01 L Free T4 2.59 H Free T3 >20.0 H Total T3 Thyroid Stim Immunoglob Thyroid Peroxidase Ab 06/19/24 06/27/24 07/28/24 22:58 06:15 09:02 TSH < 0.01 L < 0.01 L < 0.01 L Free T4 3.23 H 2.00 H 1.67 Free T3 14.2 H Total T3 303 H Thyroid Stim Immunoglob 280 H Thyroid Peroxidase Ab 3 09/04/24 10/29/24 06:30 06:21 TSH < 0.01 L < 0.01 L Free T4 1.19 0.95 Free T3 Total T3 184 H 130 Thyroid Stim Immunoglob Thyroid Peroxidase Ab Laboratory Tests 11/21/24 02/02/25 11:34 06:05 TSH 1.07 2.69 Free T4 0.73 0.87 Total T3 93 92 Laboratory Tests 06/24/25 06:13 TSH 2.76 Free T4 0.96 US THYROID 06/23/24 CLINICAL INFORMATION: Hyperthyroidism, thyrotoxicosis. COMPARISON: None available. TECHNIQUE: Linear transducer grayscale and color Doppler examination with attention to the region of the thyroid. FINDINGS: SIZE: Measurements of the thyroid lobes and nodules are given in sagittal, anteroposterior and transverse dimensions respectively. Right Thyroid Lobe: 4.7 x 1.5 x 2.1 cm, volume 7.7 mL. Parenchyma: The gland echotexture is heterogeneous. Thyroid vascularity is increased. Left Thyroid Lobe: 4.4 x 1.5 x 1.8 cm, volume 6.2 mL. Parenchyma: The gland echotexture is heterogeneous. Thyroid vascularity is increased. Isthmus: 0.3 cm in maximum AP dimension. No focal thyroid nodule is seen. NODES: No lymphadenopathy is seen in the tissue surrounding the thyroid gland. US/US thyroid IMPRESSION: Heterogeneous hypervascular thyroid which can be seen in the setting of acute thyroiditis. [facility] Medical History (Updated 04/23/25 @ 14:34 by Shereen aGrvin RN) Celiac disease Graves disease Hyperthyroidism Surgical History History of esophagogastroduodenoscopy (EGD) H/O colonoscopy Hx of abdominoplasty Hx of eye surgery History of breast implant No pertinent past surgical history Social History Alcohol intake: current Alcohol intake frequency: does not drink Patient Tobacco Use Status: Never used Tobacco Physical Exam Vital Signs: Last Vital Signs Pulse 63 07/21/25 07:34 BP 126/68 07/21/25 07:34 Pulse Ox 98 07/21/25 07:34 Oxygen Delivery Method Room Air 07/21/25 07:34 BMI result Body Mass Index 26.0 Assessment & Plan Assessment & Plan (1) Hyperthyroidism: Code(s): E05.90 - Thyrotoxicosis, unspecified without thyrotoxic crisis or storm Category: Medical Plan: Patient with hyperthyroidism since spring Started methimazole 5 mg daily since 06/19/2024, dose increased to 10 mg daily on 07/01/24 , 08/05/24 : increased methimazole to 15 mg daily with 10 mg in the morning and 5 mg in the evening TSI antibodies noted to be positive at 280 consistent with Graves disease. Explained to the patient that she has history of celiac disease, making her susceptible to other autoimmune conditions. Patient had thyroid ultrasound done in June 2024 as well which showed no nodules. 11/04/2024: Methimazole reduced to 10 mg daily 02/02/2025: TSH 2.69, free T4 0.87, total T3 92, all normal 06/24/2025: Normal TSH and free T4 Patient does not have any symptoms currently. Discussed with patient that about 30% of the patients have remission after 12-18 months of treatment with methimazole. More recent data has shown longer periods of treatment resulting in better remission rates as well. At this time we will plan to continue treatment with methimazole and continue adjusting the dose as needed. In the long run if she does not have remission, we also briefly discussed definitive therapy options of radioactive iodine ablation and total thyroidectomy and the need for requiring long-term levothyroxine therapy after those procedures. All questions were answered. Patient verbalized understanding and agreed with the plan. Plan: -decrease methimazole to 2.5 mg in the morning -ordered TSH, free T4 to be done in 6 weeks -follow up in 6 months The following were discussed as potential side effects of methimazole: -Serious skin rashes -nausea, vomiting, or severe hepatic injury -Agranulocytosis: a rare side effect of methimazole involves a severe decrease in the production of white blood cells. This condition is extremely serious, but affects only one out of every 200 to 500 people who take an antithyroid drug. Agranulocytosis more commonly occurs within the first three months of starting treatment with an antithyroid drug, but can occur at any time. If patient develops a fever (temperature above 100.5F), or other signs or symptoms of infection, she should stop taking the tapazole and immediately have a complete blood count (CBC) done. Serious and potentially life threatening infections, or even , can occur before agranulocytosis resolves. However, once the antithyroid drug is stopped, agranulocytosis usually resolves within a week. - Arthralgias, myalgias -Renal: Nephritis - Fever Patient will stop medication and call our office if these occur. (2) Graves disease: Code(s): E05.00 - Thyrotoxicosis with diffuse goiter without thyrotoxic crisis or storm Category: Medical Plan: See above Plan I spent 30 minutes in reviewing the record, seeing the patient and documenting in the medical record. Orders: Orders Thyroid Stimulating Hormone 6 Weeks E05.00 - Thyrotoxicosis with diffuse goiter without thyrotoxic crisis or storm, E05.90 - Thyrotoxicosis, unspecified without thyrotoxic crisis or storm Free T4 (Free Thyroxine) 6 Weeks E05.00 - Thyrotoxicosis with diffuse goiter without thyrotoxic crisis or storm, E05.90 - Thyrotoxicosis, unspecified without thyrotoxic crisis or storm Medications: Changed From methimazole 10 mg PO DAILY To methimazole 2.5 mg (1/2 x 5 mg) PO DAILY 30 tabs 10RF Patient Instructions: Decrease methimazole to 2.5 mg daily ( half a tablet) Do blood work in 6 weeks , we will reach out with results Follow up in 6 months Coding Level of Care Code Est Pt Level 4 (46176) Diagnoses Hyperthyroidism E05.90 Graves disease E05.00 Time Spent (min) 30
== END 2025-07-21 08:01 | disposition home or self-care (01) ==
LOC: HO.ENCR 07:29
PROVIDERS: PCP Internal Medicine; Visit Provider Student in an Organized Health Care Education/Training Program
DX: E05.90 Thyrotoxicosis, unspecified without thyrotoxic crisis or storm (principal); E05.00 Thyrotoxicosis with diffuse goiter without thyrotoxic crisis or storm
CPT/HCPCS: 99214

== ENCOUNTER 2025-09-17 07:08 | Outpatient (REF) | payer BC, SELFPAY ==
--- OUTSIDE RECORDS SUMMARY | 2024-08-15 10:20 | XMS_ITS ---
Author Organization [facility] Address [address] [place] [address] Care Team Providers Care Silk Spooler Name Role Phone Tomas Mccain Primary Care Provider Sagar Granado [phone] REASON FOR VISIT colon recall Encounters Encounter Location Date Provider Diagnosis [facility] [address] [place] [address] 08/15/2024 Sagar Jeffrey Plan Of Treatment Next Appt Details Provider Name:Sagar Jeffrey , 10/26/2025 07:30:00 AM, [address] [place] [address] , [place], [place], [phone], Progress Notes * CALEB MCCORMACKDOB:[birth year] (55 yo F)Acc No.[id number]:08/15/2024 Progress Notes Patient: CALEB ALFREDO Provider: Chester Jeffrey MD :1970 A ge:54 Y S ex:Female Date:08/15/2024 [address] [place] Pcp:Tomas Mccain Subjective: * Chief Complaints: * [...] 0 08/15/2024 Generated for Yuan mckeon/Kirk/Cris on: 1 07:11 AM MANNY
--- OUTSIDE RECORDS SUMMARY | 2025-09-17 07:11 | XMS_ITS | Clinical Summary ---
Author Organization [facility] Address [address] [place] [address] Care Team Providers Care Cnc Mill And Lathe Operator Name Role Phone System, Provider Not In [...] of Treatment Not on file Care Teams Cnc Mill And Lathe Operator Relationship Specialty Start Date End Date System, Provider Not In PCP - General 03/07/22
--- OUTSIDE RECORDS SUMMARY | 2025-09-17 07:11 | XMS_ITS | Clinical Summary ---
Author Organization [facility] Address [address] [address] Phone Care Team Providers Care Barrel Builder Name Role Phone Rachelkarlee Tomas Johnson DO Unavailable Nicolas Garcia MD Unavailable [phone] Onelia Corral MD Unavailable [phone] Dasia Cid NP Unavailable [phone] Tomas Mccain DO Primary Care Provider [phone] Tomas Mccain DO Unavailable Social History Tobacco [...] VACCINE (#1) 2025 COVID-19 VACCINE (1 - 2024-2 6 season) 2025 RSV VACCINE (1 - 1-dose 75+ series) 2043 HEPATITIS A VACCINES Aged Out No long [...] topic Medical Devices Not on file [facility] [place] [address] [place] [address] [place] [address] [place] [address] [place] [address] [place] [address] PPO EPO [facility] [place] [address] [place] [address] PPO EPO Care Teams Barrel Builder Relationship Specialty Start Date End Date Tomas Mccain DO juan PCP - General Internal Medicine 07/19/23 Tomas Mccain DO juan Historical LMR Provider 09/04/17 Nicolas Garcia MD [address] [place] [id number] Historical LMR Provider 09/04/17 Onelia Corral MD [address] [place] [phone] Historical LMR Provider 09/04/17 Dasia Cid NP [address] [place] [address] Historical LMR Provider 09/04/17 Tomas Mccain DO [address] [place] [id number] juan Insurance Assigned Provider 09/27/24 Additional Source Comments The information contained in this document represents components of the legal health record. It is not the complete legal health record.[facility]
--- OUTSIDE RECORDS SUMMARY | 2025-09-17 07:11 | XMS_ITS | Patient Health Record ---
Author Organization [facility] Address [address] [place] [address] Care Team Providers Care Floor Sander Name Role Phone Tomas Mccain Primary Care Provider Sagar Granado [phone] Allergies Allergen (clinical drug ingredient) Drug/Non Drug Allergy documented on EMR Reaction Allergy Type Onset Date Status apple allergenic extract Apple (Diagnostic) Unknown Drug Allergy Active Gluten gluten (uncoded) Unknown Allergy Act aga Reason For Referral No Information Medications Medication SIG (Take, Route, Frequency, Duration) Notes Start Date End Date Status methIMAzole 10 MG 1 tablet Orally Once a day; Duration: 30 days Active Multi Vitamin/Minerals - as [...] Problem Status W/U Status Risk Notes Problem Screening for malignant neoplasm of colon (984250572) Encounter for screening for malignant neoplasm of colon (Z12.11) Active confirmed Problem History of polyp of colon (situation) (475394593) Personal history of colonic polyps (Z86.010) Active confirmed Problem Celiac disease (574833788) Celiac disease (K90.0) Active confirmed Problem Blood in stool (469588163) Blood in stool (K92.1) Active confirmed Problem Adenomatous polyp of colon (061362134) Adenomatous colon polyp (D12.6) Active confirmed Problem Hemorrhage of rectum and anus (331182802) Rectal bleed (K62.5) Active confirmed Problem Bloody stool (187550504) Bloody stool (K92.1) Active confirmed Vital Signs Blood pressure diastolic 11 mm Hg 02/03/2025 Height 63 in 02/03/2025 Blood pressure systolic 111 mm Hg 02/03/2025 Weight 140 lbs 02/03/2025 BMI 24.8 kg/m2 02/03/2025 Procedures Procedure Date Ordered Date Performed Result Body Sit e COLONOSCOPY 02/03/2025 N/A Encounters Encounter Location Date Provider Diagnosis [facility] [address] [place] [phone] 02/03/2025 Sagar Jeffrey Encounter for screening for malignant neoplasm of colon Z12.11 ; Celiac disease K90.0 ; Adenomatous colon polyp D12.6 and Personal history of colonic polyps Z86.010 [facility] [address] [place] [phone] 12/24/2024 Sagar Jeffrey [facility] [address] [place] [phone] 04/24/2025 Sagar Jeffrey Assessments Encounter Date Diagnosis [...] Provider Name:Sagar Jeffrey , 10/26/2025 07:30:00 AM, [address] [place] [address] , [place], [place], [id number], Insurance Providers Payer Name Payer Address Payer Phone Subscriber Number Group Number Insured Name Patient Relationship to Insured Coverage Start Date Coverage End Date [facility] [address] [place] [address] [phone] [id number] CALEB MCCORMACK Self - patient is the insured Medical (General) History Medical History History ICD Code Denies [place],DM,CVA,Lung disease,renal dise ase Celiac disease diagnosed in [address] Armijo Negative colonoscopy in 2010 other than the finding of internal and external hemorrhoids Graves' disease 06/2024 Screening colonoscopy in 2018 with remov al of a small tubular adenoma Surgical History Surgery Date(Month/Year) Eyelid lift Abdominoplasty Breast reconstruction
--- OUTSIDE RECORDS SUMMARY | 2025-09-17 07:11 | XMS_ITS | Data Portability ---
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) : MDM LOW MUST MEET 2 [...] Last Modified Time Details Appointments ANNUAL EXAM 2025 09:15A OZZY SHAY Not available Not available Not available Lab CMP, serum or plasma 2024 025 [facility], [address] [place] [address], [place], [address], 05/13/2025 12:48:29 hemoglobi n A1c, QN, blood 2024 025 [facility], [address] [place], [address], 05/13/2025 12:48:30 lipid panel, blood 2024 025 [facility], [address] [place] [address], [id number], 05/13/2025 12:48:29 CBC w/ auto diff 2024 025 [facility], [address] [place] [address], [id number], 05/13/2025 12:48:30 TSH + free T4, serum 2023 024 [facility], [address] [place] [address], [id number], 06/27/2024 11:22:42 T3, free, serum or plasma 2023 024 [facility], [address] [place] [address], [id number], 06/30/2024 11:35:15 thyroid peroxidas e (tpo) Ab, serum 2023 024 [facility], [address] [place] [address], [id number], 06/25/2024 14:27:46 TSH + free T4, serum 2023 024 [facility], [address] [place] [address], [id number], 09/05/2024 11:37:33 T3, free, serum or plasma 2023 024 [facility], [address] [place] [address], [id number], 09/08/2024 11:39:40 TSH + free T4, serum 2023 024 [facility], [address] [place] [address], [id number], 10/30/2024 11:08:25 T3, free, serum or plasma 2023 024 [facility], [address] [place] [address], [address], 10/31/2024 11:08:49 TSH + free T4, serum 2023 024 [facility], [address] [place] [address], [address], 10/30/2024 11:08:25 T3, free, serum or plasma 2023 024 [facility], [address] [place] [address], [address], 10/31/2024 11:08:49 TSH + free T4, serum 2023 024 [facility], [address] [place] [address], [address], 06/18/2024 11:25:22 T3, free, serum or plasma 2023 024 [facility], [address] [place] [address], [id number], 06/17/2024 15:13:43 ESR (erythroc yte sedimenta tion rate), blood 2023 024 [facility], [address] [place] [address], [id number], 06/17/2024 15:13:43 C reactive protein, QN, serum or plasma 2023 024 [facility], [address] [place] [address], [id number], 06/17/2024 15:13:43 iron + TIBC + ferritin, serum 2023 024 [facility], [address] [place] [address], [id number], 06/17/2024 15:13:43 CBC w/ auto diff 2023 024 [facility], [address] [place] [address], [address], 06/17/2024 15:13:43 hemoglobi n A1c, QN, blood 2023 024 [facility], [address] [place] [address], [id number], 06/17/2024 15:13:42 CK (creatine kinase), total, serum 2023 024 [facility], [address] [place] [address], [address], 06/17/2024 15:13:42 magnesium , serum or plasma 2023 024 [facility], [address] [place] [address], [address], 06/17/2024 15:13:43 CMP, serum or plasma 2023 024 [facility], [address] [place] [address], [address], 06/18/2024 11:25:22 vitamin D, 25-hydrox y, total, serum 2023 024 [facility], [address] [place] [address], [address], 06/17/2024 15:13:43 vitamin B12 + folate, serum or blood 2023 024 [facility], [address] [place] [address], [address], 06/17/2024 15:13:43 PTH (parathyr oid hormone), intact + calcium, serum or plasma 2023 024 [facility], [address] [place] [address], [place], [address], 06/17/2024 15:13:43 phosphoru s, serum or plasma 2023 024 [facility], [address] [place] [address], [place], [address], 06/17/2024 15:13:42 TAINA + rf (antinucl ear antibodie s + rheumatoi d factor), quantitat aga, serum 2023 024 [facility], [address] [place] [address], [address], 06/23/2024 11:31:27 lyme disease igg+igm, serum, reflex western blot 2023 024 [facility], [address] [place] [address], [place], [address], 06/20/2024 11:38:33 anaplasma phagocyto philum + ehrlichia chaffeens is IgG + IgM panel, serum 2023 024 [facility], [address] [place] [address], [id number], 06/25/2024 11:52:05 Referral endocrino logy referral 2023 024 [facility] , [address] [place] [address] Jona Moran, [place], [address], 06/30/2024 08:36:59 sleep medicine referral - severe snoring , daytime somnolenc e, unable to lose weight patient requests a home sleep study please 2022 023 ubner Not available 07/18/2023 10:17:23 Procedures None recorded. Surgeries None recorded. Imaging None recorded. Medication Orders None recorded. Patient TargetsNo targets recorded. Patient Instructions Encounter Date Encounter Id Patient Instructions Last Modified By Organization Details Last Modified Time 07/17/2023 [id number] gluten-free diet : care instructions Not available [...] Abnormal Flag Note LastModifiedBy Organization Detail LastModifiedTime 05/01/20 24 04/18/2024 MAMMO sue, digit al, bilat eral No observ ation record ed. [email or web address] [address] [place], [address], 05/02/2024 08:31:10 06/20/2006/20/2024 CT, angio gram, chest , w/wo contr ast No observ ation record ed. [facility] (Medical Records) [address] [place], [address], 06/20/2024 08:07:26 06/26/20 24 06/23/2024 US, thyro id No observ ation record ed. [email or web address] [facility] Central Scheduling [address] [place], [address], 06/27/2024 08:57:53 04/28/2004/24/2025 MAMMO sue, digit al, bilat eral No observ ation record ed. [email or web address] [address] [place], [address], 04/29/2025 08:36:44 Result Notes None recorded. Problems Name Problem SNOMED Code Status Onset Date Resolution Date Notes Provider Name and Address Organization Details Recorded Time Celiac disease 504242849 Active 2017 since age 28 ( Dr. Jeffrey) [facility] 8 11:35:49 Disease of liver 257587448 Active 2017 Fatty liver Charlottelokesh [facility] 8 11:36:05 Irregula r intermen strual bleeding 98810718 Active 2017 controlle d [facility] 8 11:37:19 Solar degenera tion 16404299 Active 2017 sun damage- sees derm [facility] 8 13:40:11 Cyst of ovary 80913025 Active 2017 [facility] 8 13:40:36 Hypermet ropia 50047162 Active [facility] 8 13:41:27 Gastroes ophageal reflux disease 618472584 Active 2017 [facility] 8 13:57:52 Divertic ulosis of colon 610942072 Active [address], [address], [facility] 9 11:55:28 Hemorrho ids 85811694 Active [address], [address], [facility] 9 11:55:36 Polyp of colon 88906787 Active [address], [address], [facility] 9 11:55:42 Snoring 94208953 Active 2022 Tomas Mccain, [address] [place] [address], [address], [facility] 3 17:10:43 Intolera nt of heat 82485876 Active 2023 OZZY HARRELL [address] [place] [address], [address], [facility] 4 15:09:56 Muscle pain 51472902 Active 2023 OZZY HARRELL [address] [place] [address], [address], [facility] 4 15:10:32 Dizzines s 346052498 Active 2023 OZZY HARRELL [address] [place] [address], [address], [facility] 4 15:10:59 Tremor 21741191 Active 2023 OZZY HARRELL [address] [place] [address], [address], [facility] 4 15:13:15 Hyperthy roidism 40652536 Active 2023 OZZY HARRELL [address] [place] [address], [address], [facility] 4 11:20:04 Palpitat ions 29044551 Active 2023 OZZY HARRELL [address] [place] [address], [address], [facility] 4 14:44:14 Problem Notes None recorded. Procedures Surgical History Date Name Laterality Status Provider Name and Address Organization Details Recorded Time 10/06/20 19 Colonoscopy completed [facility] 10/15/2019 12:19:08 01/19/20 19 Most Recent Mammogram completed [facility] 10/14/2019 15:18:47 01/03/20 19 Colonoscopy completed [facility] 01/03/2019 12:19:04 11/19/19 13 Date of Last Pap Smear completed Charlotte Farley [facility] 10/14/2019 15:37:36 12/20/19 11 colonoscopy completed February ANIYA Fields [address] [place] [address], [place], [address], [facility] 10/16/2018 09:12:40 Imaging Results None recorded. Procedure Notes None recorded. Medical Equipment None [...] TAKE 1 CAPSULE BY MOUTH EVERY DAY 05/12 completed Not Available Not Available Not Available ciprofloxac in 500 mg tablet TAKE [...] completed Not Available Not Available Not Available metronidazo le 0.75 % topical cream APPLY SMALL AMOUNT TOPICALLY TO FACE TWICE DAILY active Not Available Not Available No t Available methimazole 5 mg tablet TAKE 1 TABLET BY MOUTH DAILY active Not Available Not Available No t Available amoxicillin 875 mg-potassiu m clavulanate 125 mg tablet TAKE 1 TABLET BY MOUTH EVERY 12 HOURS FOR 7 DAYS 01/27 completed Not Available Not Available Not Available azelaic acid 15 % topical gel APPLY TO WHOLE FACE TWICE DAILY FOR ROSACEA active Not Available Not Available No t Available OsmoPrep 1.5 gram (1.102-0.39 8) tablet [...] Body mass index (BMI) Body weight Systolic And Diastolic Provider Name and Address Organization Details Last Updated DateTime 01/28/2024 160.02 cm 25 kg/m2 40413.52 g 130/70 mm[Hg] Shelbie Ernandez [facility] 01/28/2024 09:46:06 Date Recorded Body height Body mass index (BMI) Body weight Oxygen saturation Oxygen saturation in Arterial blood by Pulse oximetry Heart rate Systolic And Diastolic Provider Name and Address Organization Details Last Updated DateTime 5 160.02 cm 25.3 kg/m2 70814.7 1 g 97 % 97 % 86 /min 104/70 mm[Hg] Beti Ocampo [facility] 5 09:13:43 Date Recorded Body height Body mass index (BMI) Body weight Heart rate Oxygen saturation Oxygen saturation in Arterial blood by Pulse oximetry Systolic And Diastolic Provider Name and Address Organization Details Last Updated DateTime 4 160.02 cm 24.4 kg/m2 64645.7 5 g 105 /min 97 % 97 % 110/70 mm[Hg] Jassi Venegas [facility] 4 14:46:06 Date Recorded Body height Body mass index (BMI) Body weight Heart rate Oxygen saturation Oxygen saturation in Arterial blood by Pulse oximetry Systolic And Diastolic Provider Name and Address Organization Details Last Updated DateTime 4 160.02 cm 24.3 kg/m2 17165.1 5 g 108 /min 97 % 97 % 100/58 mm[Hg] Shelbie Arechigamond [facility] 4 14:05:36 Social History Question Answer Notes LastModified by Organizat ion Details LastModified Time Tobacco Smoking Status Never Smoker Charlotte ureña [facility] 10/16/2018 09:00:13 What Was The Date Of Your Most Recent Tobacco Screening? 05/12/2025 [email or web address] Information not available 05/12/2025 Sex: Unknown Functional Status Question Answer Note LastModified by Organization D etails LastModified Time Do you or have you ever used any other forms of tobacco or nicotine? No [email or web address] Information not available 01/28/2024 Mental Status None recorded. Family History Relationship [...] rS-ChAdOx1, PF, 0.5 mL 1 completed Lissa ureña [facility] 06/20/2021 09:08:35 Td(adult) unspecified formulation 2 completed Charlotte ureña [facility] 10/15/2018 14:01:10 Influenza, split virus, quadrivalent, preservative 8 completed Melissa ANIYA Fields [address] [place] [address], [address], [facility] 10/16/2018 09:09:47 TST-PPD intradermal 1 completed Charlotte ureña [facility] 10/14/2019 15:17:56 Influenza, split virus, quadrivalent, preservative 9 completed February ANIYA Fields [address] [place], [address], [facility] 01/23/2020 13:55:20 Past Encounters Encounter ID Performer Location Encounter Start Date Encounter Closed Date Diagnosis/Indication Diagnosis SNOMED-CT Code Diagnosis ICD10 Code Diagnosis IMO Codes Diagnosis Note [id number] Tomas Mccain [facility] [address],[place] [address] 10/16/2018 08:52:50 10/16/2018 09:30:22 Adult health examination 845379372 Z00.00 Active or passive immunization 175788145 Z23 Body mass index 25-29 - overweight 326139463 Z68.25 very slightly overweight has been going to gym has been eating healthy has gained some weight but working on it Celiac disease 880889411 K90.0 [id number] Tomas Mccain [facility] [address],[place] [address] 02/21/2019 08:54:05 02/21/2019 11:49:20 Anxiety 18991045 F41.9 Gastroesop hageal reflux disease 319010101 K21.9 stable Celiac disease 428525467 K90.0 gluten free [id number] Tomas Mccain [facility] [address],[place] [address] 11/14/2019 15:41:48 11/14/2019 16:08:07 Viral upper respiratory tract infection 331305156 J06.9 Ongoing for 7 days nonproduct aga cough, no fever If cough becomes productive or symptoms worsen will call [id number] Tomas Mccain [facility] [address], [place] [address] 01/23/2020 13:22:37 01/23/2020 14:14:18 Adult health examination 104349539 Z00.00 LMP 6 days ago, still heavy flow, was on iud, removed last year, first menses since iud removal 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 sees derm annually sees gi annually, has cscope every 5 years due to polyp Active or passive immunization 457157401 Z23 Abnormal weight gain 161 588357 R63.5 Joint swelling 783646378 M25.40 Body mass index 25-29 - overweight 580864702 Z68.25 very slightly overweight has been going to gym has been eating healthy [id number] Tomas Mccain [facility] [address] [address] 06/20/2021 09:52:54 06/20/2021 12:38:18 Active or passive immunization 052455265 Z23 utd Adult heal th examination 901342634 Z00.00 [id number] Tomas Mccain [facility] [address], [place] [address] 10/23/2022 13:21:37 10/23/2022 15:26:00 Active or passive immunization 318403521 Z23 utd Adult heal th examination 509004671 Z00.00 [id number] Tomas Mccain [facility] [address],[place] [address] 07/17/2023 08:38:52 07/18/2023 09:57:53 Gastroesophageal reflux disease 118751392 K21.9 stable Celiac disease 851091470 K90.0 having some breakthrou gh diarrhea Snoring 28705254 R06.83 [id number] Tomas Mccain [facility] [address],[place] [address] 01/28/2024 09:40:33 01/28/2024 10:20:32 Adult health examination 389499731 Z00.00 BP is fineBW is excellent [id number] Tomas Mccain [facility] [address],[place] [address] 06/17/2024 14:24:27 06/20/2024 10:45:44 Depression screening 393360710 Z13.31 negative Intolerant of heat 98875 007 R20.8 will set up with lab work to check levels of everything Muscle pain 41185070 M79 .10 will set up with lab work for several issues, possibly related Dizziness 563875453 R42 fu after lab work Tremor 07438530 G25.2 nonspecifi c shakiness of hands [id number] Tomas Mccain [facility] [address],[place] [address] 06/25/2024 14:01:39 06/25/2024 15:55:55 Hyperthyroidism 88384884 E05.80 will fu with endocrinol ogy [id number] Tomas Mccian [facility] [address],[place] [address] 05/12/2025 08:49:41 05/12/2025 10:22:51 Active or passive immunization 919090441 Z23 recommende d Tdap General ex amination of patient 221419626 Z00.00 82506224 BP is fineBW is excellent Health Concerns Section Related Observation LastModified by Organization Detai ls LastModified Time None Recorded Concern Status LastModified by Organization Details LastModified Time None Recorded Advance Directives Directive None Recorded Payers Insurance Date Sequence Insurance Name Policy Number Policy Lennon Covered Member ID Lennon Member ID Guarantor Name 05/09/2025 1 JOSE DE JESUS (PPO) [id number] Harjit Parsons [id number] Shereen Parsons 05/06/2025 1 [employer] [id number] Shereen Parsons [id number] Shereen Parsons 05/06/2025 1 [facility] [id number] Shereen Parsons [id number] Shereen Parsons Notes Date Note Type Note Provider Name and Address Organization Details Recorded Time 3 text/html ROS as noted in the HPI patient is evaluated via tele/video assessment per patient consentduring current pandemic discussed [place] had episodes of diarrhea and has had some hx of gluten and is usually carefulstates she is so tiredin FLA she has fatty liveras dx by cholesterol Tomas Mccain, [address] [place], [address], [facility] 07/17/2023 21:55:04 4 text/html Annual WellnessReported by PatientSocial/Behaviora l HistoryFor diet and nutrition, patient reportshealthy diet,discussed vitamin and supplement use,discussed portion control,discussed maintaining calcium balance, anddiscussed diet improvement. For fracture risk, patient reportsno history of fractures,no recent explained fracture,no sudden unexplained fractures, andno previous musculoskeletal injuries. For physical activity, patient reportsexercises on a regular basis,recent increase in physical activity, andgood physical condition. For additional lifestyle factors, patient reportsno tobacco useanddrinks alcohol (mild-moderate).Mental Status:For depression risk, patient reportsnever feels sad, empty, or tearful,no loss of interest in activities,no significant changes in weight,no sleep disturbances or insomnia,no agitation,no loss of energy,no feelings of worthlessness or guilt,no thoughts of suicide,no history of depression, andno history of mood disorders.Functional AbilityFor hearing, patient reportsno loss of hearing. For vision, patient reportsno vision problems.last dentist appt was within the year, goes every 6 mos saw derm already OZZY HARRELL [address] [place], [address], [facility] 01/28/2024 10:05:57 4 text/html ROS as noted in the HPI c/o feeling off the patient is having [...] problem, tick illness, diabetes? OZZY HARRELL [address] [place], [address], [facility] 06/17/2024 15:16:32 4 text/html ROS as noted in the HPI ER f/u the patient reports that she [...] removed or irradiated depending OZZY HARRELL [address] [place], [address], [facility] 06/25/2024 14:31:22 5 text/html Annual WellnessReported by PatientSocial/Behaviora l HistoryFor diet and nutrition, patient reportshealthy diet,discussed vitamin and supplement use,discussed portion control,discussed maintaining calcium balance, anddiscussed diet improvement. For fracture risk, patient reportsno history of fractures,no recent explained fracture,no sudden unexplained fractures, andno previous musculoskeletal injuries. For physical activity, patient reportsexercises on a regular basis,recent increase in physical activity, andgood physical condition. For additional lifestyle factors, patient reportsno tobacco use.Mental Status:For depression risk, patient reportsnever feels sad, empty, or tearful,no loss of interest in activities,no significant changes in weight,no sleep disturbances or insomnia,no agitation,no loss of energy,no feelings of worthlessness or guilt,no thoughts of suicide,no history of depression, andno history of mood disorders.Functional AbilityFor hearing, patient reportsno loss of hearing. For vision, patient reportsno vision problems.ROS as noted in the HPI OZZY HARRELL [address] [place], [address], [facility] 05/12/2025 09:29:39 OBGyn Episode No OBEpisode recorded.
[2025-09-17 08:23] LABS: Free T4 (Free Thyroxine) 0.98 ng/dL (0.71-1.85); Thyroid Stimulating Hormone 1.88 uIU/mL (0.32-4.0)
== END 2025-09-17 07:09 | disposition home or self-care (01) ==
LOC: HO.LAB 07:08
PROVIDERS: PCP Internal Medicine; Visit Provider Student in an Organized Health Care Education/Training Program
DX: E05.00 Thyrotoxicosis with diffuse goiter without thyrotoxic crisis or storm (principal)
CPT/HCPCS: 36415; 84439; 84443

== ENCOUNTER 2025-10-26 06:15 | Day surgery (SDC) | payer BC, SELFPAY ==
[2025-04-23 14:37] VITALS: BMI 24.8
--- NOTE | 2025-10-22 10:42 | HO.ANESPROP2 ---
Documented by User: Maylin Treviño NP 10/22/25 10:42 HPI - Anesthesia Eval Consult details Narrative: 55yo F for Colonoscopy PMFSH Active Problems Active Problems: All Active Problems Hyperthyroidism (Acute) Graves disease (Acute) Past Medical History Medical History Celiac disease Graves disease Hyperthyroidism Surgical History Surgical History History of esophagogastroduodenoscopy (EGD) H/O colonoscopy Hx of abdominoplasty Hx of eye surgery History of breast implant Social History Social History Alcohol intake: current Alcohol intake frequency: does not drink Patient Tobacco Use Status: Never used Tobacco Use of substances other than those prescribed or required for medical reasons: No Are you DNR?: No Advance Directives: No Advance Directives Information Provided: Yes Patient : No : No Meds Allergies Allergy/AdvReac Type Severity Reaction Status Date / Time apple Allergy Severe Anaphylaxis Verified 10/26/25 07:00 gluten Allergy Severe Diarrhea Verified 10/26/25 07:00 wheat (WHEAT) AdvReac Intermediate GI UPSET Verified 07/21/25 07:40 Home Medications ?Medication ?Instructions ?Recorded ?Confirmed ?Last Taken ?Type multivitamin 1 tab PO DAILY 04/23/25 10/26/25 Unknown History Exam Height,Weight and Vital Signs: Height 5 ft 3 in Weight 63.503 kg Assessment and Plan Assessment Anesthesia Assessment: Chart Reviewed Documented by User: José Turk MD 10/26/25 07:41 PMFSH Past Medical History Medical History Celiac disease Graves disease Hyperthyroidism Cognitive capacity: normal Functional capacity: independent ambulation Family History Family history of problems with anesthesia: No Surgical History Surgical History History of esophagogastroduodenoscopy (EGD) H/O colonoscopy Hx of abdominoplasty Hx of eye surgery History of breast implant History of Problems with Anesthesia: No Social History Social History Alcohol intake: current Alcohol intake frequency: does not drink Patient Tobacco Use Status: Never used Tobacco Use of substances other than those prescribed or required for medical reasons: No Are you DNR?: No Advance Directives: No Advance Directives Information Provided: Yes Patient : No : No Meds Allergies Allergy/AdvReac Type Severity Reaction Status Date / Time apple Allergy Severe Anaphylaxis Verified 10/26/25 07:00 gluten Allergy Severe Diarrhea Verified 10/26/25 07:00 wheat (WHEAT) AdvReac Intermediate GI UPSET Verified 07/21/25 07:40 Home Medications ?Medication ?Instructions ?Recorded ?Confirmed ?Last Taken ?Type multivitamin 1 tab PO DAILY 04/23/25 10/26/25 Unknown History Exam Exam Date and Time: 10/23/2025 Airway Mallampati Class: II Heart: rrr Lungs: normal Other: normal Assessment and Plan Assessment Anesthesia Assessment: Anesthesia Plan Discussed Final Anesthetic Review Family History of Problems with Anesthesia: No History of Problems with Anesthesia: No NPO: Yes ASA Class: II Final Preanesthetic Review: No Changes in Pt Med Stat, Meds/Allgs Chart Reviewed, Consent Obtained/Reviewed and Anes Risks/Benef Reviewed Patient Risk: Low Procedure Risk: Low Anesthetic Plan Anesthetic Plan: MAC: Disposition: Standard PACU
[2025-10-26 06:57] VITALS: BMI 25.9
[2025-10-26 07:05] VITALS: BP 138/72; PULSE 62; RESP 16; TEMP 36.3; O2SAT 99
[2025-10-26] MEDS: Lactated Ringers 1,000 ML 100 ML IVCONT (07:16)
[2025-10-26 08:43] VITALS: BP 110/70; PULSE 70; RESP 16; TEMP 36.2; O2SAT 99
--- NOTE | 2025-10-26 08:44 | PM.OP ---
Brief Operative Note Date of Service: 10/26/25 Pre-op diagnosis: Screening Post-op diagnosis: other (Diverticulosis) Procedure: Colonoscopy to the cecum and TI Surgeon: Sagar Jeffrey MD Anesthesia: MAC Was an Green Building Architect used for this Procedure?: No Estimated blood loss (mL): 0 Pathology: none sent Condition: stable Disposition: PACU
[2025-10-26 08:45] VITALS: BP 110/64; PULSE 71; RESP 16; O2SAT 99
[2025-10-26 08:50] VITALS: BP 104/49; PULSE 68; RESP 19; O2SAT 98
[2025-10-26 09:05] VITALS: BP 113/59; PULSE 65; RESP 17; TEMP 36.6; O2SAT 99
--- NOTE | 2025-10-26 09:26 | OP_ITS ---
DATE OF SERVICE: 10/26/2025 SURGEON: Sagar Jeffrey MD INDICATIONS: The patient presents for evaluation of personal history of a tubular adenoma and colorectal cancer screening. Full consent has been obtained from her for this, including risks of bleeding and perforation. PREOPERATIVE DIAGNOSIS: POSTOPERATIVE DIAGNOSIS: PROCEDURE PERFORMED: ESTIMATED BLOOD LOSS: COMPLICATIONS: ANESTHESIA: Medication used, monitored anesthesia care. ASSISTANTS: SPECIMENS: PROCEDURE: Colonoscopy to the cecum and terminal ileum. PREOPERATIVE DIAGNOSES: Colorectal cancer screening and personal history of tubular adenoma of the colon. POSTOPERATIVE DIAGNOSES: Colorectal cancer screening and personal history of tubular adenoma of the colon, diverticulosis, and internal and external hemorrhoids. DESCRIPTION OF PROCEDURE: The patient was placed in the left lateral decubitus position. The digital rectal exam revealed external hemorrhoids. The Olympus video pediatric colonoscope was entered into the rectum and advanced easily to the cecum. Once in the cecum, I did identify normal-appearing cecal pouch with appendiceal orifice and a normal-appearing ileocecal valve. The terminal ileum was cannulated and appeared normal. The scope was withdrawn back in the colon. The entire cecum and ileocecal valve appeared normal. The scope was slowly withdrawn assessing all mucosal surfaces carefully. Preparation was excellent. I did not visualize any sign of polyps, colitis, nor angiodysplasia. There was a mild amount of sigmoid diverticulosis. In the rectum, scope was retroflexed visualizing internal hemorrhoids, but no other pathology. The rectal mucosa appeared normal. The scope was straightened and withdrawn from the patient. She tolerated the procedure well and was returned to the recovery area in stable condition. IMPRESSION: 1. Mild diverticulosis. 2. Internal and external hemorrhoids. PLAN: I would recommend a repeat colonoscopy in 5 years for further screening and surveillance. She will otherwise see me as needed. MD JOSH Jeter/QAMAR / [id number] YOGI
== END 2025-10-26 09:41 | disposition home or self-care (01) ==
PROVIDERS: PCP Internal Medicine; Visit Provider Internal Medicine
PROC: 0DJD8ZZ Inspection of Lower Intestinal Tract, Via Natural or Artificial Opening Endoscopic (ICD-10-PCS; CPT 45378; principal; 2025-10-26 07:30)
DX: Z12.11 Encounter for screening for malignant neoplasm of colon (principal); Z86.0101 Personal history of adenomatous and serrated colon polyps; Z83.719 Family history of colon polyps, unspecified; K57.30 Diverticulosis of large intestine without perforation or abscess without bleeding; K64.8 Other hemorrhoids
CPT/HCPCS: 45378; J2704; J3010

== ENCOUNTER 2025-11-10 09:33 | Outpatient (REF) | payer BC, SELFPAY ==
--- OUTSIDE RECORDS SUMMARY | 2024-08-15 09:20 | XMS_ITS ---
Author Organization [facility] Address [address] [place] [address] Care Team Providers Care All Source Intelligence Technician Name Role Phone Tomas Mccain Primary Care Provider Sagar Granado [phone] REASON FOR VISIT colon recall Encounters Encounter Location Date Provider Diagnosis [facility] [address] [place] [address] 08/15/2024 Sagar Jeffrey Plan Of Treatment No Information Progress Notes * CALEB MCCORMACKDOB:[birth year] (55 yo F)Acc No.[id number]:08/15/2024 Progress Notes Patient: CALEB ALFREDO Provider: Chester Jeffrey MD :1970 A ge:54 Y S ex:Female Date:08/15/2024 Address[address] [id number] Pcp:Tomas Mccain Subjective: * Chief Complaints: * C olon recall * The named appointment provid er may or may not be the originator of this progress note, and it is not deemed complete until electronically signed by the appointment provider. Sign off status: Pending * Provider: Chester Jeffrey MD Date: 0 08/15/2024 Generated for Yuan mckeon/Kirk/eTransmitting on: 1 01/11/2025 10:21 AM EST
--- OUTSIDE RECORDS SUMMARY | 2025-10-26 02:30 | XMS_ITS ---
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 Role Phone Tomas Mccain Primary Care Provider Sagar Granado [phone] REASON FOR VISIT screening, hx polyps,adenomatous polyp colon Encounters Encounter Location Date Provider Diagnosis [facility] [address] [place] [address] [place] [id number] 10/26/2025 Sagar Jeffrey Plan Of Treatment No Information Progress Notes * CALEB MCCORMACKDOB:[birth year] (55 yo F)Acc No.[id number]:10/26/2025 COLON WITH MAC Patient: CALEB ALFREDO Provider: Chester Jeffrey MD :1970 A ge:55 Y S ex:Female Date:10/26/2025 Address[address] [id number] Pcp:Tomas Mccain Subjective: * Chief Complaints: * S creening, hx polyps,adenomatous polyp colon * The named appointment provid er may or may not be the originator of this progress note, and it is not deemed complete until electronically signed by the appointment provider. Sign off status: Pending * Provider: Chester Jeffrey MD Date: 12/27/2024 Generated for Yuan mckeon/Kirk/eTransmitting on: 01/11/2025 10:21 AM EST
[2025-11-10 09:46] LABS: MANUAL DIFF FLAG NO
--- OUTSIDE RECORDS SUMMARY | 2025-11-10 10:21 | XMS_ITS | Data Portability ---
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) : MDM LOW MUST MEET 2 [...] Lab CMP, serum or plasma 2024 025 [facility], [address] [place] [address], [place], [address], 05/13/2025 12:48:29 hemoglobi n A1c, QN, blood 2024 025 [facility], [address] [place], [address], 05/13/2025 12:48:30 lipid panel, blood 2024 025 [facility], [address] [place] [address], [address], 05/13/2025 12:48:29 CBC w/ auto diff 2024 025 [facility], [address] [place] [address], [address], 05/13/2025 12:48:30 TSH + free T4, serum 2023 024 [facility], [address] [place] [address], [address], 06/27/2024 11:22:42 T3, free, serum or plasma 2023 024 [facility], [address] [place] [address], [address], 06/30/2024 11:35:15 thyroid peroxidas e (tpo) Ab, serum 2023 024 [facility], [address] [place] [address], [address], 06/25/2024 14:27:46 TSH + free T4, serum 2023 024 [facility], [address] [place] [address], [address], 09/05/2024 11:37:33 T3, free, serum or plasma 2023 024 [facility], [address] [place] [address], [address], 09/08/2024 11:39:40 TSH + free T4, serum 2023 024 [facility], [address] [place] [address], [address], 10/30/2024 11:08:25 T3, free, serum or plasma 2023 024 [facility], [address] [place] [address], [address], 10/31/2024 11:08:49 TSH + free T4, serum 2023 024 [facility], [address] [place] [address], [address], 10/30/2024 11:08:25 T3, free, serum or plasma 2023 024 [facility], [address] [place] [address], [address], 10/31/2024 11:08:49 TSH + free T4, serum 2023 024 [facility], [address] [place] [address], [address], 06/18/2024 11:25:22 T3, free, serum or plasma 2023 024 [facility], [address] [place] [address], [address], 06/17/2024 15:13:43 ESR (erythroc yte sedimenta tion rate), blood 2023 024 [facility], [address] [place] [address], [id number], 06/17/2024 15:13:43 C reactive protein, QN, serum or plasma 2023 024 [facility], [address] [place] [address], [address], 06/17/2024 15:13:43 iron + TIBC + ferritin, serum 2023 024 [facility], [address] [place] [address], [address], 06/17/2024 15:13:43 CBC w/ auto diff 2023 024 [facility], [address] [place] [address], [address], 06/17/2024 15:13:43 hemoglobi n A1c, QN, blood 2023 024 [facility], [address] [place] [address], [address], 06/17/2024 15:13:42 CK (creatine kinase), total, serum 2023 024 [facility], [address] [place] [address], [address], 06/17/2024 15:13:42 magnesium , serum or plasma 2023 024 [facility], [address] [place] [address], [address], 06/17/2024 15:13:43 CMP, serum or plasma 2023 024 [facility], [address] [place] [address], [address], 06/18/2024 11:25:22 vitamin D, 25-hydrox y, total, serum 2023 024 [facility], [address] [place] [address], [address], 06/17/2024 15:13:43 vitamin B12 + folate, serum or blood 2023 024 [facility], [address] [place] [address], [address], 06/17/2024 15:13:43 PTH (parathyr oid hormone), intact + calcium, serum or plasma 2023 024 [facility], [address] [place] [address], [place], [address], 06/17/2024 15:13:43 phosphoru s, serum or plasma 2023 024 [facility], [address] [place] [address], [place], [address], 06/17/2024 15:13:42 TAINA + rf (antinucl ear antibodie s + rheumatoi d factor), quantitat aga, serum 2023 024 [facility], [address] [place] [address], [address], 06/23/2024 11:31:27 lyme disease igg+igm, serum, reflex western blot 2023 024 [facility], [address] [place] [address], [place], [address], 06/20/2024 11:38:33 anaplasma phagocyto philum + ehrlichia chaffeens is IgG + IgM panel, serum 2023 024 [facility], [address] [place] [address], [address], 06/25/2024 11:52:05 Referral endocrino logy referral 2023 024 [facility] , [address] [place] [address] Jona Moran, [place], [address], 06/30/2024 08:36:59 sleep medicine referral - severe [...] By Organization Details Last Modified Time 07/17/2023 [id number] gluten-free diet : care instructions Not available [...] bilat eral No observ ation record ed. [email or web address] [address] [place], [address], 05/02/2024 08:31:10 06/20/2006/20/2024 CT, angio gram, chest , w/wo contr ast No observ ation record ed. [facility] (Medical Records) [address] [place], [address], 06/20/2024 08:07:26 06/26/20 24 06/23/2024 US, thyro id No observ ation record ed. [email or web address] [facility] Central Scheduling [address] [place], [address], 06/27/2024 08:57:53 04/28/2004/24/2025 MAMMO sue, digit al, bilat eral No observ ation record ed. [address] [place], [address], 04/29/2025 08:36:44 10/02/20 25 10/02/2025 CT, coron iveth calci um score No observ ation record ed. [email or web address] [facility] [address], [place], [address], 10/02/2025 15:50:29 Result Notes None recorded. Problems Name Problem SNOMED Code Status Onset Date Resolution Date Notes Provider Name and Address Organization Details Recorded Time Celiac disease 222882385 Active 2017 since age 28 ( Dr. Jeffrey) [facility] 8 11:35:49 Disease of liver 097471230 Active 2017 Fatty liver Charlottelokesh ureña [facility] 8 11:36:05 Irregula r intermen strual bleeding 77684119 Active 2017 controlle d [facility] 8 11:37:19 Solar degenera tion 96757651 Active 2017 sun damage- sees derm [facility] 8 13:40:11 Cyst of ovary 80936658 Active 2017 Charlottelokesh ureña [facility] 8 13:40:36 Hypermet ropia 27542129 Active 2017 Charlottelokesh ureña [facility] 8 13:41:27 Gastroes ophageal reflux disease 613763141 Active 2017 [facility] 8 13:57:52 Divertic ulosis of colon 673975099 Active 2018 [facility] [address] [place] [address], [address], [facility] 9 11:55:28 Hemorrho ids 97966966 Active [address], [address], [facility] 9 11:55:36 Polyp of colon 65999848 Active 2018 ANIYA Fields [address] [place], [address], [facility] 9 11:55:42 Snoring 58876599 Active 2022 Tomas Mccain, [address] [place] [address], [address], [facility] 3 17:10:43 Intolera nt of heat 75604441 Active 2023 OZZY HARRELL [address] [place] [address], [address], [facility] 4 15:09:56 Muscle pain 99852568 Active 2023 OZZY HARRELL [address] [place] [address], [address], [facility] 4 15:10:32 Dizzines s 140242660 Active 2023 OZZY HARRELL [address] [place] [address], [address], [facility] 4 15:10:59 Tremor 47034894 Active 2023 OZZY HARRELL [address] [place] [address], [address], [facility] 4 15:13:15 Hyperthy roidism 81886404 Active 2023 OZZY HARRELL [address] [place] [address], [address], [facility] 4 11:20:04 Palpitat ions 89225397 Active 2023 OZZY HARRELL [address] [place] [address], [address], [facility] 4 14:44:14 Problem Notes None recorded. Procedures Surgical History Date Name Laterality Status Provider Name and Address Organization Details Recorded Time 10/06/20 19 Colonoscopy completed Charlotte Farley [facility] 10/15/2019 12:19:08 01/19/20 19 Most Recent Mammogram completed [facility] 10/14/2019 15:18:47 01/03/20 19 Colonoscopy completed [facility] 01/03/2019 12:19:04 11/19/19 13 Date of Last Pap Smear completed [facility] 10/14/2019 15:37:36 12/20/19 11 colonoscopy completed February [address], [address], [facility] 10/16/2018 09:12:40 Imaging Results None [...] Not Available No t Available amoxicillin 875 mg-krunalgiovany mirza clavulanate 125 mg tablet TAKE 1 TABLET [...] Updated DateTime 01/28/2024 160.02 cm 25 kg/m2 07774.52 g 130/70 mm[Hg] Shelbie Ernandez [facility] 01/28/2024 09:46:06 Date Recorded Body height Body mass index (BMI) Body weight Oxygen saturation Heart rate Systolic And Diastolic Provider Name and Address Organization Details Last Updated DateTime 5 160.02 cm 25.3 kg/m2 25094.7 1 g 97 % 86 /min 104/70 mm[Hg] JONH ADAMES [facility] 5 09:13:43 Date Recorded Body height Body mass index (BMI) Body weight Heart rate Oxygen saturation Systolic And Diastolic Provider Name and Address Organization Details Last Updated DateTime 4 160.02 cm 24.4 kg/m2 24950.7 5 g 105 /min 97 % 110/70 mm[Hg] Jassi Venegas [facility] 4 14:46:06 Date Recorded Body height Body mass index (BMI) Body weight Heart rate Oxygen saturation Systolic And Diastolic Provider Name and Address Organization Details Last Updated DateTime 4 160.02 cm 24.3 kg/m2 06496.1 5 g 108 /min 97 % 100/58 mm[Hg] Shelbie Ernandez [facility] 4 14:05:36 Social History Question Answer Notes LastModified by Organizat ion Details LastModified Time Tobacco Smoking Status Never Smoker Charlotte ureña [facility] 10/16/2018 09:00:13 What Was The Date Of Your Most Recent Tobacco Screening? 05/12/2025 [email or web address] Information not available 05/12/2025 Sex: Unknown Functional Status Question Answer Note LastModified by Organization D etails LastModified Time Do you or have you ever used any other forms of tobacco or nicotine? No [email or web address] Information not available 01/28/2024 Mental Status None [...] PF, 0.5 mL 1 completed Lissa ureña [facility] 06/20/2021 09:08:35 Td(adult) unspecified formulation 2 completed Charlotte ureña [facility] 10/15/2018 14:01:10 Influenza, split virus, quadrivalent, preservative 8 completed February [facility] [address] [place], [address], [facility] 10/16/2018 09:09:47 TST-PPD intradermal 1 completed [facility] 10/14/2019 15:17:56 Influenza, split virus, quadrivalent, preservative 9 completed February [facility] [place] [address] [place], [address], [facility] 01/23/2020 13:55:20 Past Encounters Encounter ID Performer Location Encounter Start Date Encounter Closed Date Diagnosis/Indication Diagnosis SNOMED-CT Code Diagnosis ICD10 Code Diagnosis IMO Codes Diagnosis Note [id number] Tomas Mccain [facility] [address] [address] 10/16/2018 08:52:50 10/16/2018 09:30:22 Adult health examination 198438771 Z00.00 Active or passive immunization 752797209 Z23 Body mass index 25-29 - overweight 140117106 Z68.25 very slightly overweight has been going to gym has been eating healthy has gained some weight but working on it Celiac disease 829134376 K90.0 [id number] Tomas Mccain [facility] [address] [place] [address] 02/21/2019 08:54:05 02/21/2019 11:49:20 Anxiety 59720439 F41.9 Gastroesop hageal reflux disease 951682538 K21.9 stable Celiac disease 019693864 K90.0 gluten free [id number] Tomas Mccain [facility] [address] [place] [address] 11/14/2019 15:41:48 11/14/2019 16:08:07 Viral upper respiratory tract infection 094050813 J06.9 Ongoing for 7 days nonproduct aga cough, no fever If cough becomes productive or symptoms worsen will call [id number] Tomas Mccain [facility] [address] [place] [address] [place] [address] 01/23/2020 13:22:37 01/23/2020 14:14:18 Adult health examination 475786337 Z00.00 LMP 6 days ago, still heavy flow, was on iud, removed last year, first menses since iud removal sees senior research project manager annually sees derm annually sees gi annually, has cscope every 5 years due to polyp Active or passive immunization 473465021 Z23 Abnormal weight gain 161 056812 R63.5 Joint swelling 749394258 M25.40 Body mass index 25-29 - overweight 754113240 Z68.25 very slightly overweight has been going to gym has been eating healthy [id number] Tomas Mccain [facility] [address] [facility],[place] [address] 06/20/2021 09:52:54 06/20/2021 12:38:18 Active or passive immunization 219773252 Z23 utd Adult heal th examination 446425591 Z00.00 [id number] Tomas Mccain [facility] [address] [place] [address] 10/23/2022 13:21:37 10/23/2022 15:26:00 Active or passive immunization 629239253 Z23 utd Adult heal th examination 764737478 Z00.00 [id number] Tomas Mccain [facility] [address] [facility],[place] [address] 07/17/2023 08:38:52 07/18/2023 09:57:53 Gastroesophageal reflux disease 239830120 K21.9 stable Celiac disease 345013965 K90.0 having some breakthrou gh diarrhea Snoring 50923867 R06.83 [id number] Tomas Mccain [facility] [address] [facility],[place] [address] 01/28/2024 09:40:33 01/28/2024 10:20:32 Adult health examination 951664838 Z00.00 BP is fineBW is excellent [id number] Tomas Mccain [facility] [address] [facility],[place] [address] 06/17/2024 14:24:27 06/20/2024 10:45:44 Depression screening 079158691 Z13.31 negative Intolerant of heat 53363 007 R20.8 will set up with lab work to check levels of everything Muscle pain 52092980 M79 .10 will set up with lab work for several issues, possibly related Dizziness 928526268 R42 fu after lab work Tremor 55486303 G25.2 nonspecifi c shakiness of hands [id number] [facility] [address] [facility],[place] [address] 06/25/2024 14:01:39 06/25/2024 15:55:55 Hyperthyroidism 45967960 E05.80 will fu with endocrinol ogy [id number] [facility] [address] [facility],[place] [address] 05/12/2025 08:49:41 05/12/2025 10:22:51 Active or passive immunization 770883519 Z23 recommende d Tdap General ex amination of patient 076465070 Z00.00 95035924 BP is fineBW is excellent Health Concerns Section Related Observation LastModified by Organization Detai ls LastModified Time None Recorded Concern Status LastModified by Organization Details LastModified Time None Recorded Advance Directives Directive None Recorded Payers Insurance Date Sequence Insurance Name Policy Number Policy Lennon Covered Member ID Lennon Member ID Guarantor Name 05/09/2025 1 JOSE DE JESUS (PPO) [id number] Harjit Parsons [id number] Shereen Parsons 05/06/2025 1 [employer] [id number] Shereen Parsons [id number] Shereen Johnson Issa 05/06/2025 1 [facility] [id number] Shereen Parsons [id number] Shereen Parsons Notes Date Note Type Note [...] dx by cholesterol Tomas Mccain DO [address] [facility], [place], [address], [facility] 07/17/2023 21:55:04 4 [...] mos saw derm already OZZY HARRELL [address] [facility], [place], [address], [facility] 01/28/2024 10:05:57 4 text/html ROS [...] problem, tick illness, diabetes? OZZY HARRELL [address] [place], [address], [facility] 06/17/2024 15:16:32 4 text/html ROS [...] removed or irradiated depending OZZY HARRELL [address] [place], [address], [facility] 06/25/2024 14:31:22 5 text/html Annual WellnessReported by [...] noted in the HPI OZZY HARRELL [address] [place], [address], [facility] 05/12/2025 09:29:39 OBGyn Episode No OBEpisode recorded.
--- OUTSIDE RECORDS SUMMARY | 2025-11-10 10:21 | XMS_ITS | Clinical Summary ---
Author Organization [facility] Address [address] [address] Phone Care Team Providers Care Representative Name Role Phone Rachelkarlee Tomas Johnson DO Unavailable Nicolas Garcia MD Unavailable [phone] Onelia Corral MD Unavailable [phone] Dasia Cid NP Unavailable [phone] Tomas Mccain DO Primary Care Provider [phone] Tomas Mccain DO Unavailable Social History Tobacco [...] topic Medical Devices Not on file [facility] [place] [address] [place] [address] [place] [address] [place] [address] [place] [address] [place] [address] PPO EPO [facility] [place] [address] [place] [address] PPO EPO Care Teams Representative Relationship Specialty Start Date End Date Tomas Mccain DO juan PCP - General Internal Medicine 07/19/23 Tomas Mccain DO juan Historical LMR Provider 09/04/17 Nicolas Garcia MD [address] [place] [id number] Historical LMR Provider 09/04/17 Onelia Corral MD [address] [place] [address] Historical LMR Provider 09/04/17 Dasia Cid NP [address] [place] [address] Historical LMR Provider 09/04/17 Tomas Mccain DO [address] [place] [id number] juan Insurance Assigned Provider 09/27/24 Additional Source Comments The information contained in this document represents components of the legal health record. It is not the complete legal health record.[facility]
--- OUTSIDE RECORDS SUMMARY | 2025-11-10 10:21 | XMS_ITS | Patient Health Record ---
Author Organization [facility] Address [address] [place] [address] Care Team Providers Care Painter Sign Maintenance Name Role Phone Tomas Mccain Primary Care Provider Sagar Granado [phone] Allergies Allergen (clinical drug ingredient) Drug/Non Drug Allergy documented on EMR Reaction Allergy Type Onset Date Status Gluten gluten (uncoded) Unknown Allergy Act aga apple allergenic extract Apple (Diagnostic) Unknown Drug Allergy Active Reason For Referral No Information Medications Medication SIG (Take, Route, Frequency, Duration) Notes Start Date End Date Status methIMAzole 10 MG Tablet 1 tablet Orally Once a day; Duration: 30 days Active Multi Vitamin/Minerals - Tablet as directed Orally QD Active Immunizations Vaccine Route Administration Date Status Comme nts Influenza Unknown 09/17/2018 Administered Social History Tobacco Use: Social History Observation Description Date Details (start date - stop date) Never Smoker NA - NA Social History Drugs/Alcohol: Social Info Question Answer Notes Alcohol Screen Did you have a drink containing alcohol in the past year? Yes How often did you have a drink containing alcohol in the past year? 2 to 4 times a month (2 points) How many drinks did you have on a typical day when you were drinking in the past year? 1 or 2 drinks (0 point) How often did you have 6 or more drinks on one occasion in the past year? 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 Section Notes: Nonsmoker; no sig alcohol Nonsmoker; no sig alcohol Problems Problem Type SNOMED Code ICD Code Onset Dates Problem Status W/U Status Risk Notes Problem Screening for malignant neoplasm of colon (290747975) Encounter for screening for malignant neoplasm of colon (Z12.11) Active confirmed Problem History of polyp of colon (situation) (149594128) Personal history of colonic polyps (Z86.010) Active confirmed Problem Celiac disease (468142840) Celiac disease (K90.0) Active confirmed Problem Blood in stool (889344501) Blood in stool (K92.1) Active confirmed Problem Adenomatous polyp of colon (785383946) Adenomatous colon polyp (D12.6) Active confirmed Problem Hemorrhage of rectum and anus (389946616) Rectal bleed (K62.5) Active confirmed Problem Bloody stool (151002161) Bloody stool (K92.1) Active confirmed Vital Signs Blood pressure diastolic 11 mm Hg 02/03/2025 Height 63 in 02/03/2025 Blood pressure systolic 111 mm Hg 02/03/2025 Weight 140 lbs 02/03/2025 BMI 24.8 kg/m2 02/03/2025 Procedures Procedure Date Ordered Date Performed Result Body Sit e COLONOSCOPY 02/03/2025 N/A Encounters Encounter Location Date Provider Diagnosis [facility] Outpatient [address] [place] [id number] 10/26/2025 Sagar Jeffrey [facility] [address] [place] [phone] 02/03/2025 Sagar Jeffrey Encounter for screening for malignant neoplasm of colon Z12.11 ; Celiac disease K90.0 ; Adenomatous colon polyp D12.6 and Personal history of colonic polyps Z86.010 [facility] [address] [place] [phone] 12/24/2024 Sagar Jeffrey [facility] [address] [place] [phone] 04/24/2025 Sagar Jeffrey Assessments Encounter Date Diagnosis [...] Test Test Name Order Date COLONOSCOPY 12/18/2018 Insurance Providers Payer Name Payer Address Payer Phone Subscriber Number Group Number Insured Name Patient Relationship to Insured Coverage Start Date Coverage End Date [facility] [address] [place] [address] [id number] CALEB MCCORMACK Self - patient is the insured Medical (General) History Medical History History ICD Code Denies [place],DM,CVA,Lung disease,renal dise ase Celiac disease diagnosed in [address] Armijo Negative colonoscopy in 2010 other than the finding of internal and external hemorrhoids Graves' disease 06/2024 Screening colonoscopy in 2018 with remov al of a small tubular adenoma Surgical History Surgery Date(Month/Year) Breast reconstruction Abdominoplasty Eyelid lift
--- OUTSIDE RECORDS SUMMARY | 2025-11-10 10:21 | XMS_ITS | Clinical Summary ---
Author Organization [facility] Address [address] [place] [id number] Care Team Providers Care Airplane Pilot Commercial Name Role Phone System, Provider Not In [...] of Treatment Not on file Care Teams Airplane Pilot Commercial Relationship Specialty Start Date End Date System, Provider Not In PCP - General 03/07/22
[2025-11-10 10:54] LABS: Hematocrit 41.1 % (37.0-47.0); Hemoglobin 13.1 g/dl (12.0-16.0); Imm Gran Abs Auto 0.01 X10*3/uL (0.00-0.03); Imm Gran Pct Auto 0.2 % (0.0-0.4); Lymphocytes Absolute Auto 1.6 X10*3/uL (1.2-4.9); Mean Corpuscular HGB Conc 31.9 g/dl (31.0-35.0); Mean Corpuscular Hemoglobin 29.5 pg (27.0-33.0); Mean Corpuscular Volume 92.6 fL (80.0-98.0); NRBC Abs Auto 0.000 X10*3/uL (0.0-0.012); NRBC Pct Auto 0.0 /100WBC (0.0-0.2); Platelet Count 263 X10*3/uL (160-400); Red Blood Count 4.44 X10*6/uL (4.20-5.50); White Blood Count 6.2 X10*3/uL (4.8-10.8)
== END 2025-11-10 09:34 | disposition home or self-care (01) ==
LOC: HO.LAB 09:33
PROVIDERS: PCP Internal Medicine; Visit Provider Internal Medicine Endocrinology, Diabetes & Metabolism
DX: E05.90 Thyrotoxicosis, unspecified without thyrotoxic crisis or storm (principal)
CPT/HCPCS: 36415; 85025